=== PATIENT | male | born 1940 | race African-American/Black ===

== ENCOUNTER 2017-01-04 08:41 | Emergency (ER) | payer MEDICARE, BC ==
[2017-01-04] MEDS ORDERED: NORMAL SALINE 500 ML IV ONE (09:00)
[2017-01-04] MEDS ORDERED: FAMOTIDINE INJ/PF 20 MG/2 ML SDV IV ONE (09:13)
[2017-01-04] MEDS ORDERED: ONDANSETRON HCL INJ/PF 4 MG/2 ML SDV IV ONE (09:13)
[2017-01-04 10:08] LABS: ABSOLUTE BASOPHILS # (AUTO) 0.1 10^3/uL (0.0-0.2); ABSOLUTE EOSINOPHILS # (AUTO) 0.3 10^3/uL (0.0-0.6); ABSOLUTE LYMPHOCYTES (AUTO) 0.9 10^3/uL (0.5-4.7); ABSOLUTE MONOCYTES (AUTO) 0.7 10^3/uL (0.1-1.4); BASOPHILS % (AUTO) 0.9 % (0-2); EOSINOPHILS % (AUTO) 4.3 % (0-6); HEMATOCRIT 37.1 % (37.9-51.0); HGB HCT DIFFERENCE -1.1; LYMPHOCYTES % (AUTO) 13.2 % (13-45); MEAN CORPUSCULAR HEMOGLOBIN 29.1 pg (27.0-33.4); MEAN CORPUSCULAR HGB CONC 32.2 g/dL (32.0-36.0); MEAN CORPUSCULAR VOLUME 90 fl (80-97); PROTHROMBIN TIME 14.1 SEC (11.4-15.4); RED BLOOD COUNT 4.11 10^6/uL (4.35-5.55); RED CELL DISTRIBUTION WIDTH 15.7 % (11.5-14.0); SEGMENTED NEUTROPHILS % (AUTO) 71.6 % (42-78)
[2017-01-04 10:09] LABS: PARTIAL THROMBOPLASTIN TIME 34.3 SEC (23.5-35.8)
[2017-01-04 10:26] LABS: ALANINE AMINOTRANSFERASE 33 U/L (21-72); ALBUMIN 3.5 g/dL (3.5-5.0); ALKALINE PHOSPHATASE 148 U/L (38-126); ANION GAP 11 (5-19); ASPARTATE AMINO TRANSFERASE 40 U/L (17-59); BILIRUBIN,DIRECT 0.4 mg/dL (0.0-0.4); BILIRUBIN,TOTAL 0.8 mg/dL (0.2-1.3); BLOOD UREA NITROGEN 40 mg/dL (7-20); CALCIUM 9.2 mg/dL (8.4-10.2); CARBON DIOXIDE 33 mmol/L (22-30); CHLORIDE 99 mmol/L (98-107); CREATININE RESULT 1.24 mg/dL (0.52-1.25); GLUCOSE 167 mg/dL (75-110); LIPASE 274.4 U/L (23-300); POTASSIUM 4.5 mmol/L (3.6-5.0); SODIUM 143.2 mmol/L (137-145); TOTAL PROTEIN 7.2 g/dL (6.3-8.2)
--- NOTE | 2017-01-04 11:05 | RADIOLOGY REPORT (SQ) ---
EXAM DESCRIPTION: ACUTE ABDOMEN SERIES COMPLETED DATE/TIME: 01/04/2017 10:32 am REASON FOR STUDY: n/v epigastric pain COMPARISON: None. NUMBER OF VIEWS: Three views. TECHNIQUE: Frontal chest, supine abdomen and upright/decubitus abdomen radiographic images acquired. LIMITATIONS: None. FINDINGS: CHEST: Lungs clear of infiltrates. FREE AIR: None. No abnormal gas collections. BOWEL GAS PATTERN: Nonobstructive pattern. No dilated loops or air fluid levels. CALCIFICATIONS: No suspicious calcifications. HARDWARE: None in the abdomen. SOFT TISSUES: No gross mass or suggestion of organomegaly. BONES: No acute fracture. No worrisome bone lesions. OTHER: No other significant finding. IMPRESSION: NO RADIOGRAPHIC EVIDENCE FOR ACUTE ABDOMINAL DISEASE. TECHNICAL DOCUMENTATION: JOB ID: [id number] [employer]- All Rights Reserved
[2017-01-04] MEDS ORDERED: MAG HYDROX/AL HYDROX/SIMETH SUSP 30 ML UDCUP PO ONE (11:07)
[2017-01-04] MEDS ORDERED: LIDOCAINE 2% VISCOUS SOLN 20 ML UDCUP PO ONE (11:07)
[2017-01-04] MEDS ORDERED: METOCLOPRAMIDE HCL ORAL SOLN 10 MG/10 ML UDCUP PO ONE (11:07)
--- NOTE | 2017-01-04 12:00 | ER Document Report ---
ED General - General Chief Complaint: Nausea/Vomiting Stated Complaint: NAUSEA Time Seen by Provider: 01/04/17 09:02 TRAVEL OUTSIDE OF THE [place] IN LAST 30 DAYS: No - HPI Patient complains to provider of: Nausea vomiting Notes: Patient coming in for evaluation of nausea and vomiting. Patient states nausea and vomiting with epigastric pain ongoing for approximately 1 week. Patient at this point did throw up possibly a blood clot. Patient denies any dark stools or bloody stools. Patient denies any other significant GI history denies history of hepatitis ABC denies any alcohol abuse. Patient resting calmly upon my evaluation. - Related Data Allergies/Adverse Reactions: Shellfish * Adverse Reaction (Mild, Verified 01/04/17 09:17) GOUT SHELLFOODS Adverse Reaction (Mild, Uncoded 01/04/17 09:17) GOUT Past Medical History - Social History Smoking Status: Never Smoker Chew tobacco use (# tins/day): No Frequency of alcohol use: None Drug Abuse: None Family History: Reviewed & Not Pertinent Patient has suicidal ideation: No Patient has homicidal ideation: No - Past Medical History Cardiac Medical History: Reports: Hx Hypercholesterolemia, Hx Hypertension Pulmonary Medical History: Reports: Hx COPD Endocrine Medical History: Reports: Hx Diabetes Mellitus Type 1, Hx Diabetes Mellitus Type 2 Renal/ Medical History: Denies: Hx Peritoneal Dialysis Musculoskeltal Medical History: Reports Hx Arthritis Psychiatric Medical History: Denies: Hx Depression Past Surgical History: Reports: Hx Orthopedic Surgery Review of Systems - Review of Systems Constitutional: No symptoms reported EENT: No symptoms reported Cardiovascular: No symptoms reported Respiratory: No symptoms reported Gastrointestinal: Nausea, Vomiting Genitourinary: No symptoms reported Male Genitourinary: No symptoms reported Musculoskeletal: No symptoms reported Skin: No symptoms reported Hematologic/Lymphatic: No symptoms reported Neurological/Psychological: No symptoms reported -: Yes All other systems reviewed and negative Physical Exam - Vital signs Vitals: Temp Pulse Resp BP Pulse Ox 98.3 F 86 18 166/77 H 94 01/04/17 08:43 01/04/17 08:43 01/04/17 08:43 01/04/17 08:43 01/04/17 08:43 Interpretation: Normal - General General appearance: Appears well, Alert - HEENT Head: Normocephalic, Atraumatic Eyes: Normal Pupils: PERRL - Respiratory Respiratory status: No respiratory distress Chest status: Nontender Breath sounds: Normal Chest palpation: Normal - Cardiovascular Rhythm: Regular Heart sounds: Normal auscultation Murmur: No - Abdominal Inspection: Normal Bowel sounds: Normal Tenderness: Nontender Organomegaly: No organomegaly - Back Back: Normal, Nontender - Extremities General upper extremity: Normal inspection, Nontender, Normal color, Normal ROM , Normal temperature General lower extremity: Normal inspection, Nontender, Normal color, Normal ROM , Normal temperature, Normal weight bearing. No: Gregg's sign - Neurological Neuro grossly intact: Yes Cognition: Normal Orientation: AAOx4 Pedro Coma Scale Eye Opening: Spontaneous Brunson Coma Scale Verbal: Oriented Pedro Coma Scale Motor: Obeys Commands Pedro Coma Scale Total: 15 Speech: Normal Motor strength normal: LUE, RUE, LLE, RLE Sensory: Normal - Psychological Associated symptoms: Normal affect, Normal mood - Skin Skin Temperature: Warm Skin Moisture: Dry Skin Color: Normal Course - Re-evaluation Re-evalutation: 01/04/17 13:37 Patient lab work did not show any critical etiology. Patient's hemoglobin stable from previous hemoglobin if not better. Patient has not had no nausea or vomiting here in the ER and is able to tolerate p.o. At this time patient looks to be a good candidate for outpatient management. 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 - Vital Signs Vital signs: Temp Pulse Resp BP Pulse Ox 98.3 F 67 19 168/83 H 94 01/04/17 08:43 01/04/17 12:18 01/04/17 12:18 01/04/17 12:18 01/04/17 12:18 - Laboratory Result Diagrams: 01/04/17 09:28 01/04/17 09:28 Laboratory results interpreted by me: 01/04/17 01/04/17 09:28 09:28 RBC 4.11 L Hgb 12.0 L Hct 37.1 L RDW 15.7 H Carbon Dioxide 33 H BUN 40 H Est GFR (Non-Af Amer) 57 L Glucose 167 H Alkaline Phosphatase 148 H Discharge - Discharge Clinical Impression: Nausea & vomiting Qualifiers: Vomiting type: unspecified Vomiting Intractability: unspecified Qualified Code( s): R11.2 - Nausea with vomiting, unspecified Condition: Good Disposition: HOME, SELF-CARE Instructions: Vomiting ([facility]) Additional Instructions: Please take medication as prescribed. Return to the ER if symptoms worsen. Follow-up with your primary care physician Prescriptions: Metoclopramide HCl [Reglan] 5 mg PO Q6 #20 tablet Omeprazole 20 mg PO DAILY #20 capsule.dr Referrals: JESSEE LEAHY MD [Primary Care Provider] - Follow up in 3-5 days
[2017-01-04 12:19] VITALS: BP 168/83
--- NOTE | 2017-01-04 17:03 | EKG REPORT ---
SEVERITY:- ABNORMAL ECG - SINUS RHYTHM MULTIPLE PREMATURE COMPLEXES, SUPRAVEN PROBABLE LEFT ATRIAL ABNORMALITY BORDERLINE T ABNORMALITIES, INFERIOR LEADS : Confirmed by: Leo Vallejo MD 04-Jan-2017 17:02:10
== END 2017-01-04 12:18 | disposition home or self-care (01) ==
LOC: ER 08:41
DX: R11.2 Nausea with vomiting, unspecified (principal); R10.13 Epigastric pain; E78.00 Pure hypercholesterolemia, unspecified; I10 Essential (primary) hypertension; J44.9 Chronic obstructive pulmonary disease, unspecified; E11.9 Type 2 diabetes mellitus without complications; Z91.013 Allergy to seafood
CPT/HCPCS: 93005; 99284; 96361; 96374; 96375; 86900; 86901; 36415; 86850; 83690; 85025; 85610; 85730; 80053; 74022; 93010; J3490; A9270; J2405; J7040; S0028

== ENCOUNTER 2017-01-18 09:23 | Emergency (ER) | payer BC, MEDICARE ==
--- NOTE | 2017-01-18 09:53 | ER Document Report ---
ED Medical Screen (RME) - General Chief Complaint: Abdominal Swelling Stated Complaint: ABDOMINAL PAIN Time Seen by Provider: 01/18/17 09:46 Mode of Arrival: Ambulatory Information source: Patient Notes: This is a 76-year-old male who presents with abdominal distention/swelling along with left-sided abdominal pain. He states that this is been progressing for the past week and his family convinced him to come in for evaluation today. He states last time the symptoms occurred he was told it was secondary to CHF. He denies any chest pain. He denies shortness of breath. No fevers or chills. No nausea or vomiting. I have greeted and performed a rapid initial assessment of this patient. A comprehensive ED assessment and evaluation of the patient, analysis of test results and completion of the medical decision making process will be conducted by additional ED providers. TRAVEL OUTSIDE OF THE [place] IN LAST 30 DAYS: No - Related Data Allergies/Adverse Reactions: Shellfish * Adverse Reaction (Mild, Verified 01/18/17 09:27) GOUT SHELLFOODS Adverse Reaction (Mild, Uncoded 01/18/17 09:27) GOUT Past Medical History - Past Medical History Cardiac Medical History: Reports: Hx Hypercholesterolemia, Hx Hypertension Pulmonary Medical History: Reports: Hx COPD Endocrine Medical History: Reports: Hx Diabetes Mellitus Type 1, Hx Diabetes Mellitus Type 2 Renal/ Medical History: Denies: Hx Peritoneal Dialysis Musculoskeltal Medical History: Reports Hx Arthritis Psychiatric Medical History: Denies: Hx Depression Past Surgical History: Reports: Hx Orthopedic Surgery Physical Exam - Vital signs Vitals: Temp Pulse Resp BP Pulse Ox 97.8 F 74 26 H 152/71 H 93 01/18/17 09:27 01/18/17 09:27 01/18/17 09:27 01/18/17 09:27 01/18/17 09:27 - General General appearance: Appears well In distress: None - Respiratory Respiratory status: No respiratory distress Breath sounds: Other - decreased bibasilar breath sounds with faint crackles - Cardiovascular Rhythm: Regular Heart sounds: Normal auscultation, S1 appreciated, S2 appreciated - Abdominal Distension: Distended Bowel sounds: Hypoactive Tenderness: Other - mild LUQ TTP Course - Vital Signs Vital signs: Temp Pulse Resp BP Pulse Ox 97.8 F 74 26 H 152/71 H 93 01/18/17 09:27 01/18/17 09:27 01/18/17 09:27 01/18/17 09:27 01/18/17 09:27
--- NOTE | 2017-01-18 10:29 | RADIOLOGY REPORT (SQ) ---
EXAM DESCRIPTION: CHEST SINGLE VIEW COMPLETED DATE/TIME: 01/18/2017 10:19 am REASON FOR STUDY: chf COMPARISON: 10/05/2014 NUMBER OF VIEWS: One view. TECHNIQUE: Single frontal radiographic view of the chest acquired. LIMITATIONS: None. FINDINGS: LUNGS AND PLEURA: No opacities, masses or pneumothorax. No pleural effusion. MEDIASTINUM AND HILAR STRUCTURES: No masses. Contour normal. HEART AND VASCULAR STRUCTURES: Heart enlarged without failure. Normal vasculature. BONES: No acute findings. HARDWARE: None in the chest. OTHER: No other significant finding. IMPRESSION: HEART ENLARGED WITHOUT FAILURE. NO OTHER SIGNIFICANT RADIOGRAPHIC FINDING IN THE CHEST. TECHNICAL DOCUMENTATION: JOB ID: [id number] [employer]- All Rights Reserved
[2017-01-18 10:39] LABS: ALANINE AMINOTRANSFERASE 51 U/L (21-72); ALBUMIN 3.1 g/dL (3.5-5.0); ALKALINE PHOSPHATASE 247 U/L (38-126); ANION GAP 11 (5-19); ASPARTATE AMINO TRANSFERASE 60 U/L (17-59); BILIRUBIN,DIRECT 0.3 mg/dL (0.0-0.4); BILIRUBIN,TOTAL 0.4 mg/dL (0.2-1.3); BLOOD UREA NITROGEN 47 mg/dL (7-20); CARBON DIOXIDE 31 mmol/L (22-30); CHLORIDE 99 mmol/L (98-107); CREATINE KINASE 67 U/L (55-170); CREATININE RESULT 1.68 mg/dL (0.52-1.25); GLUCOSE 171 mg/dL (75-110); POTASSIUM 4.8 mmol/L (3.6-5.0); SODIUM 140.5 mmol/L (137-145); TOTAL PROTEIN 6.7 g/dL (6.3-8.2)
[2017-01-18 10:51] LABS: CREATINE KINASE MB 1.07 ng/mL (<4.55)
[2017-01-18 10:53] LABS: TROPONIN I < 0.012 ng/mL
[2017-01-18 11:13] LABS: ABSOLUTE BASOPHILS # (AUTO) 0.1 10^3/uL (0.0-0.2); ABSOLUTE EOSINOPHILS # (AUTO) 0.3 10^3/uL (0.0-0.6); ABSOLUTE LYMPHOCYTES (AUTO) 0.9 10^3/uL (0.5-4.7); ABSOLUTE MONOCYTES (AUTO) 0.8 10^3/uL (0.1-1.4); ABSOLUTE NEUT (AUTO) 5.6 10^3/uL (1.7-8.2); EOSINOPHILS % (AUTO) 4.4 % (0-6); HEMATOCRIT 34.8 % (37.9-51.0); HEMOGLOBIN 10.9 g/dL (13.5-17.0); HGB HCT DIFFERENCE -2.1; LYMPHOCYTES % (AUTO) 11.4 % (13-45); MEAN CORPUSCULAR HEMOGLOBIN 28.5 pg (27.0-33.4); MEAN CORPUSCULAR HGB CONC 31.4 g/dL (32.0-36.0); MEAN CORPUSCULAR VOLUME 91 fl (80-97); MONOCYTES % (AUTO) 10.6 % (3-13); RED BLOOD COUNT 3.83 10^6/uL (4.35-5.55); RED CELL DISTRIBUTION WIDTH 15.8 % (11.5-14.0); SEGMENTED NEUTROPHILS % (AUTO) 72.6 % (42-78); WHITE BLOOD COUNT 7.7 10^3/uL (4.0-10.5)
--- NOTE | 2017-01-18 11:56 | ER Document Report ---
ED General - General Chief Complaint: Abdominal Swelling Stated Complaint: ABDOMINAL PAIN Time Seen by Provider: 01/18/17 09:46 Mode of Arrival: Ambulatory Notes: Patient is here complaining of having "fluid on me" for the past week. He is complaining of left-sided abdominal pain has been present for about a week. He feels swollen in that area and the swelling and pain "comes and goes". He said he has had this before. I am not sure if he is actually had it drained previously or not. At first he says he has had it drained and then he says that he was put in the hospital and given medicines through an IV to treat the condition. Patient says that he has had similar symptoms in the past due to congestive heart failure. He denies any chest pain. Denies any shortness of breath or difficulty breathing. Denies any swelling of his extremities. Denies fever. Patient is on several medications and he thinks he is on a fluid pill, but did not bring his medicines and does not know what medicines he takes. We were able to contact [facility] and determined that the patient is on torsemide 20 mg daily. TRAVEL OUTSIDE OF THE [place] IN LAST 30 DAYS: No - Related Data Allergies/Adverse Reactions: Shellfish * Adverse Reaction (Mild, Verified 01/18/17 09:27) GOUT SHELLFOODS Adverse Reaction (Mild, Uncoded 01/18/17 09:27) GOUT Past Medical History - General Information source: Patient - Social History Smoking Status: Never Smoker Chew tobacco use (# tins/day): No Frequency of alcohol use: None Drug Abuse: None Family History: Reviewed & Not Pertinent Patient has suicidal ideation: No Patient has homicidal ideation: No - Past Medical History Cardiac Medical History: Reports: Hx Congestive Heart Failure, Hx Hypercholesterolemia, Hx Hypertension Pulmonary Medical History: Reports: Hx COPD Endocrine Medical History: Reports: Hx Diabetes Mellitus Type 1, Hx Diabetes Mellitus Type 2 Renal/ Medical History: Reports: Hx Renal Insufficiency GI Medical History: Denies: Hx Cirrhosis Musculoskeltal Medical History: Reports Hx Arthritis Past Surgical History: Reports: Hx Orthopedic Surgery - Left knee and left hip Review of Systems - Review of Systems Notes: REVIEW OF SYSTEMS: CONSTITUTIONAL : Denies fever. EENT: Denies eye, ear, nose or mouth or throat pain or other symptoms. CARDIOVASCULAR: Denies chest pain. RESPIRATORY: Denies cough, chest congestion, or shortness of breath. GASTROINTESTINAL: Denies nausea, vomiting, or diarrhea. GENITOURINARY: Pains of left upper abdominal pain. Denies difficulty or painful urinating, urinary frequency, blood in urine. MUSCULOSKELETAL: Denies back or neck pain. Denies joint pain or swelling. SKIN: Denies rash or skin lesions. NEUROLOGICAL: Denies LOC or altered mental status. Denies headache. Denies sensory loss or motor deficits. ALL OTHER SYSTEMS REVIEWED AND NEGATIVE. Physical Exam - Vital signs Vitals: Temp Pulse Resp BP Pulse Ox 97.8 F 74 26 H 152/71 H 93 01/18/17 09:27 01/18/17 09:27 01/18/17 09:27 01/18/17 09:27 01/18/17 09:27 Interpretation: Normal - Notes Notes: PHYSICAL EXAMINATION: GENERAL: Well-appearing, in no acute distress. Vital signs essentially normal. HEAD: Atraumatic, normocephalic. NECK: Normal range of motion, supple. LUNGS: Breath sounds clear and equal bilaterally. No rales heard. HEART: Regular rate and rhythm without murmurs. ABDOMEN: Appears distended. Looks like patient has ascites to my exam. BACK: No tenderness throughout entire back. EXTREMITIES: Normal range of motion without pain. No edema present of either lower extremity. Negative Homans bilaterally. NEUROLOGICAL: Normal speech, normal gait uses a cane for support.. Normal sensory, motor, and reflex exams. Awake, alert, and oriented x3. Cranial nerves normal. PSYCH: Normal mood, normal affect. SKIN: Warm, dry, no rashes.. No guarding or rebound. Course - Re-evaluation Re-evalutation: 01/18/17 12:05 Labs reviewed. Mild renal insufficiency, but it is somewhat worse than when he was here 2 weeks ago. Liver function tests appear to be normal. I spoke with Dr. Leahy, patient's private doctor who recommended a follow-up visit in his office on Friday morning. Dr. Leahy did question if I had done an ultrasound to verify the ascites and I will do one before discharging the patient. - Vital Signs Vital signs: Temp Pulse Resp BP Pulse Ox 97.8 F 74 26 H 152/71 H 93 01/18/17 09:27 01/18/17 09:27 01/18/17 09:27 01/18/17 09:27 01/18/17 09:27 - Laboratory Result Diagrams: 01/18/17 11:05 01/18/17 10:00 Laboratory results interpreted by me: 01/18/17 01/18/17 10:00 11:05 RBC 3.83 L Hgb 10.9 L Hct 34.8 L MCHC 31.4 L RDW 15.8 H Lymphocytes % 11.4 L Carbon Dioxide 31 H BUN 47 H Creatinine 1.68 H Est GFR ( Amer) 49 L Est GFR (Non-Af Amer) 40 L Glucose 171 H AST 60 H Alkaline Phosphatase 247 H Albumin 3.1 L - Diagnostic Test Radiology reviewed: Image reviewed, Reports reviewed - Ultrasound shows generalized ascites in the patient's abdomen. Radiology results interpreted by me: 01/18/17 12:04 X-ray shows cardiomegaly but no evidence of congestive heart failure. - EKG Interpretation by Me EKG shows normal: Sinus rhythm Rate: Normal Rhythm: NSR Additional EKG results interpreted by me: 01/18/17 12:05 EKG is normal. No acute changes. Discharge - Discharge Clinical Impression: Renal insufficiency Ascites Qualifiers: Ascites type: other type Qualified Code(s): R18.8 - Other ascites Condition: Stable Disposition: HOME, SELF-CARE Additional Instructions: Ascites: Your evaluation today shows that you have ascites. This condition results in fluid accumulation in her abdomen. It can cause pain, shortness of breath, and is usually a reflection of another medical condition. He does not have any evidence of congestive heart failure today. Kidney Function Abnormality Your evaluation has shown an abnormality of your kidney function. An abnormal kidney function test can be caused by dehydration, acute kidney damage , blood vessel disease (such as with diabetes or chronic high blood pressure), or just old age. If the abnormality is caused by an acute disease, it may reverse completely. Have a repeat test. If it's normal, don't worry about your kidneys. If you have a chronic kidney problem, you must be careful with medicines and medical tests. Be sure any doctor who prescribes medicine or orders tests knows that your kidney tests have been abnormal. Some medicines must have the dose reduced, other medicines must be avoided. If the doctor has recommended further workup, be sure to follow up as instructed. Call us if you have new flank pain, vomiting, confusion, or if you' re unable to urinate. Continue to take all of your medications as prescribed. Definitely make sure you take your fluid pill torsemide. Dr. Leahy wants to see you in his office Friday. Call his office first thing Friday and ask them for a time for you to be there. FOLLOW-UP CARE: If you have been referred to a physician for follow-up care, call the physician s office for an appointment as you were instructed or within the next two days. If you experience worsening or a significant change in your symptoms, notify the physician immediately or return to the Emergency Department at any time for re-evaluation. Return at any time if you have new or worsening symptoms. Referrals: JESSEE LEAHY MD [Primary Care Provider] - 01/20/17
--- NOTE | 2017-01-18 12:30 | RADIOLOGY REPORT (SQ) ---
EXAM DESCRIPTION: U/S ABDOMEN LIMITED W/O DOP COMPLETED DATE/TIME: 01/18/2017 12:17 pm REASON FOR STUDY: Distended abdomen,? Ascites COMPARISON: 09/21/2014. TECHNIQUE: Limited Static and real time toscano scale imaging performed of the 4 abdominal quadrants an d the midline. LIMITATIONS: None. FINDINGS: ASCITES: Large volume ascites. OTHER: No other significant finding. IMPRESSION: LARGE VOLUME ASCITES WHICH IS INCREASED COMPARED TO PRIOR STUDY. TECHNICAL DOCUMENTATION: JOB ID: [id number] [employer]- All Rights Reserved
[2017-01-18 12:47] VITALS: BP 164/67
--- NOTE | 2017-01-20 09:42 | EKG REPORT ---
SEVERITY:- NORMAL ECG - SINUS RHYTHM : Confirmed by: Mae Hightower 20-Jan-2017 09:42:22
== END 2017-01-18 12:49 | disposition home or self-care (01) ==
LOC: ER 09:23
DX: R18.8 Other ascites (principal); Z79.899 Other long term (current) drug therapy; N28.9 Disorder of kidney and ureter, unspecified; I51.7 Cardiomegaly; R10.12 Left upper quadrant pain; E11.9 Type 2 diabetes mellitus without complications; I10 Essential (primary) hypertension; J44.9 Chronic obstructive pulmonary disease, unspecified
CPT/HCPCS: 36415; 71010; 76705; 80053; 82550; 82553; 83880; 84484; 85025; 93005; 93010; 99284

== ENCOUNTER 2017-01-19 14:01 | Emergency (ER) | payer BC ==
[2017-01-19 14:25] VITALS: BP 130/68
--- NOTE | 2017-01-19 14:54 | ER Document Report ---
ED Medical Screen (RME) - General Chief Complaint: Abdominal Swelling Stated Complaint: ABDOMINAL SWELLING Time Seen by Provider: 01/19/17 14:49 Mode of Arrival: Wheelchair Information source: Patient Notes: 76-year-old male who was seen in the emergency department yesterday with ascites and renal insufficiency. He returns today because of persistent abdominal swelling which is not any worse than yesterday and he wants the fluid removed. Consulted with Dr. Santizo because Dr. Fernández is eating lunch at this time and Dr. Santizo advised to wait until Dr. Fernández returns from lunch because he saw him yesterday and had a long discussion with his primary care physician Dr. Mon.. TRAVEL OUTSIDE OF THE [place] IN LAST 30 DAYS: No - Related Data Allergies/Adverse Reactions: Shellfish * Adverse Reaction (Mild, Verified 01/19/17 14:22) GOUT SHELLFOODS Adverse Reaction (Mild, Uncoded 01/19/17 14:22) GOUT Past Medical History - Past Medical History Cardiac Medical History: Reports: Hx Congestive Heart Failure, Hx Hypercholesterolemia, Hx Hypertension Pulmonary Medical History: Reports: Hx COPD Endocrine Medical History: Reports: Hx Diabetes Mellitus Type 1, Hx Diabetes Mellitus Type 2 Renal/ Medical History: Reports: Hx Renal Insufficiency. Denies: Hx Peritoneal Dialysis GI Medical History: Denies: Hx Cirrhosis Musculoskeltal Medical History: Reports Hx Arthritis Psychiatric Medical History: Denies: Hx Depression Past Surgical History: Reports: Hx Orthopedic Surgery - Left knee and left hip Physical Exam - Vital signs Vitals: Temp Pulse Resp BP Pulse Ox 98.0 F 68 17 130/68 H 93 01/19/17 14:23 01/19/17 14:23 01/19/17 14:23 01/19/17 14:23 01/19/17 14:23 Course - Vital Signs Vital signs: Temp Pulse Resp BP Pulse Ox 98.0 F 68 17 130/68 H 93 01/19/17 14:23 01/19/17 14:23 01/19/17 14:23 01/19/17 14:23 01/19/17 14:23
--- NOTE | 2017-01-19 15:52 | ER Document Report ---
ED General - General Mode of Arrival: Wheelchair Information source: Patient TRAVEL OUTSIDE OF THE [place] IN LAST 30 DAYS: No - HPI Onset: Other - Refer to HPI note <SHAMEKA NORTON - Last Filed: 01/19/17 21:50> <ESMERFERNANDA HERMINIA - Last Filed: 01/19/17 23:21> - General Chief Complaint: Abdominal Swelling Stated Complaint: ABDOMINAL SWELLING Time Seen by Provider: 01/19/17 14:49 Notes: Patient is a 76 year old male presenting to the emergency department for left sided abdominal pain for 1 week. Patient was evaluated yesterday in the ED for this. Patient has ascites and is wanting to have his fluid removed. Patient is supposed to see his primary Dr. Leahy tomorrow and schedule to have it drained sometime this week. Patient states his family made him come into the ED today. (SHAMEKA NORTON) - Related Data Allergies/Adverse Reactions: Shellfish * Adverse Reaction (Mild, Verified 01/19/17 14:22) GOUT SHELLFOODS Adverse Reaction (Mild, Uncoded 01/19/17 14:22) GOUT Past Medical History - General Information source: Patient - Social History Smoking Status: Unknown if Ever Smoked Chew tobacco use (# tins/day): No Family History: None Patient has suicidal ideation: No Patient has homicidal ideation: No - Past Medical History Cardiac Medical History: Reports: Hx Congestive Heart Failure, Hx Hypercholesterolemia, Hx Hypertension Pulmonary Medical History: Reports: Hx COPD Endocrine Medical History: Reports: Hx Diabetes Mellitus Type 1, Hx Diabetes Mellitus Type 2 Renal/ Medical History: Reports: Hx Renal Insufficiency Musculoskeltal Medical History: Reports Hx Arthritis Past Surgical History: Reports: Hx Orthopedic Surgery - Left knee and left hip <SHAMEKA NORTON - Last Filed: 01/19/17 21:50> Review of Systems - Review of Systems Constitutional: No symptoms reported EENT: No symptoms reported Cardiovascular: No symptoms reported Respiratory: No symptoms reported Gastrointestinal: See HPI Genitourinary: No symptoms reported Male Genitourinary: No symptoms reported Musculoskeletal: No symptoms reported Skin: No symptoms reported Hematologic/Lymphatic: No symptoms reported Neurological/Psychological: No symptoms reported -: Yes All other systems reviewed and negative <SHAMEKA NORTON - Last Filed: 01/19/17 21:50> Physical Exam - Vital signs Interpretation: Normal - General General appearance: Appears well, Alert - HEENT Head: Normocephalic, Atraumatic Eyes: Normal Pupils: PERRL - Respiratory Respiratory status: No respiratory distress Chest status: Nontender Breath sounds: Normal Chest palpation: Normal - Cardiovascular Rhythm: Regular Heart sounds: Normal auscultation Murmur: No - Abdominal Inspection: Normal Distension: Distended, Fluid wave Bowel sounds: Normal Tenderness: Nontender Organomegaly: No organomegaly - Back Back: Normal, Nontender - Extremities General upper extremity: Normal inspection, Nontender, Normal color, Normal ROM , Normal temperature General lower extremity: Normal inspection, Nontender, Normal color, Normal ROM , Normal temperature, Normal weight bearing. No: Gregg's sign - Neurological Neuro grossly intact: Yes Cognition: Normal Orientation: AAOx4 [place] Coma Scale Eye Opening: Spontaneous [place] Coma Scale Verbal: Oriented [place] Coma Scale Motor: Obeys Commands Pedro Coma Scale Total: 15 Speech: Normal Motor strength normal: LUE, RUE, LLE, RLE Sensory: Normal - Psychological Associated symptoms: Normal affect, Normal mood - Skin Skin Temperature: Warm Skin Moisture: Dry Skin Color: Normal <FERNANDA LYMAN - Last Filed: 01/19/17 23:21> - Vital signs Vitals: Temp Pulse Resp BP Pulse Ox 98.0 F 68 17 130/68 H 93 01/19/17 14:23 01/19/17 14:23 01/19/17 14:23 01/19/17 14:23 01/19/17 14:23 Course - Consults Internal music sound light technician Time consulted: 15:52 <SHAMEKA NORTON - Last Filed: 01/19/17 21:50> <FERNANDA LYMAN - Last Filed: 01/19/17 23:21> - Re-evaluation Re-evalutation: 01/19/17 Patient is a 76-year-old male with a history of ascites. He has a history of cirrhosis and CHF. Patient presents for paracentesis. Explained to patient that that cannot be done with radiology today. I have spoken to Andre Boss from interventional radiology and the patient can come tomorrow at noon and have the procedure done around 1:00 tomorrow. Coags have been done. Patient agrees with this plan. He also has a follow-up with his primary care doctor on Friday. Abdomen is soft and the patient is not having any respiratory distress. Understands and agrees with plan. Will have procedure done tomorrow. Stable for discharge. Grateful for care. (FERNANDA LYMAN) - Vital Signs Vital signs: Temp Pulse Resp BP Pulse Ox 98.0 F 68 18 130/68 H 93 01/19/17 14:23 01/19/17 14:23 01/19/17 15:35 01/19/17 14:23 01/19/17 14:23 - Laboratory Laboratory results interpreted by me: 01/19/17 16:30 APTT 36.1 H - Consults Internal music sound light technician Reason for consultation: 01/19/17 15:52 Contacted internal radiology to set up appointment for patient. 01/19/17 16:11 Spoke with Andre Internal data technical lead and made an outpatient/ambulatory appointment for patient tomorrow at noon. (SHAMEKA NORTON) Discharge <SHAMEKA NORTON - Last Filed: 01/19/17 21:50> <FERNANDA LYMAN - Last Filed: 01/19/17 23:21> - Discharge Clinical Impression: Ascites Qualifiers: Ascites type: other type Qualified Code(s): R18.8 - Other ascites Condition: Stable Disposition: HOME, SELF-CARE Instructions: Cirrhosis ([facility]) Additional Instructions: Please go to ambulatory surgery tomorrow at noon. They will do the paracentesis tomorrow. Forms: Follow-Up Radiology Testing Referrals: JESSEE LEAHY MD [Primary Care Provider] - Follow up tomorrow Scribe Attestation: 01/19/17 23:21 I personally performed the services described in the documentation, reviewed and edited the documentation which was dictated to the scribe in my presence, and it accurately records my words and actions. (FERNANDA LYMAN) Scribe Documentation - Scribe Written by George:: George Kruger 01/19/17 21:50 acting as scribe for :: Esmer <SHAMEKA NORTON - Last Filed: 01/19/17 21:50>
[2017-01-19] MEDS ORDERED: ALBUMIN HUMAN 50 ML IV SCH (16:15)
[2017-01-19 17:05] LABS: PROTHROMBIN TIME 13.9 SEC (11.4-15.4)
[2017-01-19 17:06] LABS: PARTIAL THROMBOPLASTIN TIME 36.1 SEC (23.5-35.8)
== END 2017-01-19 16:50 | disposition home or self-care (01) ==
LOC: ER 14:01
DX: R18.8 Other ascites (principal); R10.9 Unspecified abdominal pain
CPT/HCPCS: 36415; 85610; 85730; 99284

== ENCOUNTER 2017-01-20 11:41 | Day surgery (SDC) | payer BC ==
[2017-01-20 12:17] LABS: HEMATOCRIT 32.6 % (37.9-51.0); HEMOGLOBIN 10.2 g/dL (13.5-17.0); MEAN CORPUSCULAR HEMOGLOBIN 28.4 pg (27.0-33.4); MEAN CORPUSCULAR HGB CONC 31.4 g/dL (32.0-36.0); MEAN CORPUSCULAR VOLUME 90 fl (80-97); RED BLOOD COUNT 3.61 10^6/uL (4.35-5.55); WHITE BLOOD COUNT 7.4 10^3/uL (4.0-10.5)
[2017-01-20 12:26] LABS: PARTIAL THROMBOPLASTIN TIME 36.5 SEC (23.5-35.8); PROTHROMBIN TIME 13.9 SEC (11.4-15.4)
[2017-01-20 12:36] LABS: BLOOD UREA NITROGEN 51 mg/dL (7-20); CREATININE RESULT 1.91 mg/dL (0.52-1.25)
[2017-01-20 15:31] LABS: FLUID TYPE PERITONEAL
[2017-01-20 15:32] LABS: FLUID APPEARANCE SLIGHTLY HAZY; FLUID RBC SIDE 1 160; FLUID RBC SIDE 2 158
[2017-01-20 15:33] LABS: FLUID RBC DILUENT USED NONE USED; FLUID RBC DILUTION FACTOR 1; TOTAL RBC SQUARES COUNTED FLD 75
--- NOTE | 2017-01-20 16:20 | RADIOLOGY REPORT (SQ) ---
EXAM DESCRIPTION: U/S ABD PARACENTESIS COMPLETED DATE/TIME: 01/20/2017 2:17 pm REASON FOR STUDY: ASCITES COMPARISON None. LIMITATIONS: None. PROCEDURE: After obtaining informed consent, the patient was brought to the ultrasound suite. The p rocedure was performed with the patient on a gurney. Ultrasound was used to identify a prominent poc ket of ascites in the left lower quadrant. An appropriate access site was selected. The patient was prepped and draped in usual sterile fashion. The access site was anesthetized with 10 mL 1% lidoca ine. A Vcbx-O-Tzgezhfa needle was advanced into the fluid. After aspiration of fluid the needle, th e catheter was advanced off the needle into the fluid. A total of 4,750 mL of yellow fluid was remov ed. The patient tolerated the procedure well left the department in satisfactory condition. IMPRESSION: Successful ultrasound-guided paracentesis. Fluid was sent for laboratory testing. COMMENT: Patient medication list reviewed: Yes- Quality ID# [id number]:Eligible professional attests to doc umenting in the medical record they obtained, updated, or reviewed the patient's current medications. Quality ID #76: The patient was prepped and draped using maximum sterile barrier technique including cap, mask, sterile gown, sterile gloves, a large sterile sheet, hand hygiene, and 2% Chlorhexidine fo r cutaneous antisepsis. When ultrasound is used, sterile ultrasound techniques are followed requiring sterile gel and sterile probes. Quality ID #145: Final reports for procedures using fluoroscopy that document radiation exposure jp sam, or exposure time and number of fluorographic images (if radiation exposure indices are not avail able) TECHNICAL DOCUMENTATION: JOB ID: [id number] [employer]- All Rights Reserved
[2017-01-20 16:39] VITALS: BP 159/78
== END 2017-01-20 15:45 | disposition home or self-care (01) ==
LOC: RAD 11:41
PROVIDERS: ATTEND Emergency Medicine
PROC: 0W9G3ZZ Drainage of Peritoneal Cavity, Percutaneous Approach (ICD-10-PCS; principal; 2017-01-20)
DX: C48.2 Malignant neoplasm of peritoneum, unspecified (principal); I11.0 Hypertensive heart disease with heart failure; I50.9 Heart failure, unspecified; K74.60 Unspecified cirrhosis of liver; J44.9 Chronic obstructive pulmonary disease, unspecified; E10.9 Type 1 diabetes mellitus without complications; M19.90 Unspecified osteoarthritis, unspecified site; E78.00 Pure hypercholesterolemia, unspecified
CPT/HCPCS: 36415; 49083; 82565; 82945; 83615; 84157; 84520; 85027; 85610; 85730; 87070; 87075; 87205; 88305; 88313; 88341; 88342; 89050

== ENCOUNTER → 2017-02-09 | Outpatient (CLI) | payer BC ==
--- NOTE | 2017-02-12 09:07 | RADIOLOGY REPORT (SQ) ---
EXAM DESCRIPTION: PET CT SKULL/THIGH COMPLETED DATE/TIME: 02/12/2017 7:31 am REASON FOR STUDY: MALIGNANT NEOPLASM OF STOMACH, UNSPECIFIED C16.9 MALIGNANT NEOPLASM OF STOMACH, U NSPECIFIED COMPARISON: CT abdomen pelvis 09/20/2014 RADIONUCLIDE AND DOSE: 11.7 mCi F18 FDG The route of agent administration: Intravenous FASTING BLOOD SUGAR: 47 mg/dl CONTRAST TYPE AND DOSE: No CT contrast given. TECHNIQUE: Blood glucose level was verified. Above dose of FDG was injected intravenously. 2-D seg mented attenuation correction images were obtained from the base of the skull to the midthighs. Nonc ontrast CT images were obtained for attenuation correction and fusion with emission images. CT image s were performed without oral or intravenous contrast and are not sensitive for parenchymal lesions. A series of overlapping emission PET images were obtained. Images reviewed and manipulated at [facility] work station by the radiologist. Images stored on PACS. LIMITATIONS: None. FINDINGS: HEAD AND NECK: No areas of abnormal metabolic activity in the soft tissues of the head and neck. CHEST: There is dense consolidation in the left lower lobe worrisome for pneumonia. Left lower lobe segmental airways are occluded by mucus or secretions. Lung parenchymal consolidation SUV 9.7. There is patchy consolidation with lung parenchymal nodules in the lingular apex, which could either be infectious or metastatic, SUV 6.6. This is best shown on axial image 85. Other smaller subcentimeter lung nodules are present along the right minor fissure which may be old p ostinflammatory change rather than metastatic disease. These are too small to characterize with PET- CT. There is a subcentimeter focus of increased activity at the left hilum with SUV 3.2 which could be a reactive lymph node. Diffuse esophageal activity is present, ranging from 3.4 to 5.0 SUV, question diffuse esophagitis. Prevascular enlarged lymph node 1.7 x 1.3 cm in size axial image 59, with SUV 4.5. No pleural effusions. No pericardial effusion. ABDOMEN AND PELVIS: There is moderate ascites. Peritoneal seeding with tumor implants in the right u pper quadrant and left upper quadrant with SUV ranging from 3.7 to 5.4. There is omental tumor in the left upper quadrant with SUV 6.6. Along the gastric antrum, a 4 to 5 cm long ill-defined mass is present with SUV 16.8. PROXIMAL LOWER EXTREMITIES: No areas of abnormal metabolic activity in the soft tissues of the lower extremities. BONES: No abnormal metabolic activity in the visualized skeleton. ADDITIONAL CT FINDINGS: Very dense calcification versus coronary stents along the proximal left coron sukh artery. Left total hip replacement. OTHER: Liver activity 1.8 SUV, vascular blood pool activity SUV 1.3 IMPRESSION: Gastric antrum primary mass SUV 16.8. Malignant ascites with multiple peritoneal, mesenteric, and omental lesions Left lower lobe and lingular pneumonia. TECHNICAL DOCUMENTATION: JOB ID: [id number] [employer]- All Rights Reserved
== END ==
LOC: RAD 19:35
PROVIDERS: ATTEND Internal Medicine
DX: C16.9 Malignant neoplasm of stomach, unspecified (principal)
CPT/HCPCS: 78815; A9552

== ENCOUNTER 2017-02-19 08:52 | Emergency (ER) | payer BC, MEDICARE ==
[2017-02-19] MEDS ORDERED: ONDANSETRON HCL INJ/PF 4 MG/2 ML SDV IV ONE ×2 (09:14→14:00)
--- NOTE | 2017-02-19 09:19 | ER Document Report ---
ED Medical Screen (RME) - General Chief Complaint: Abdominal Pain Stated Complaint: NAUSEA/VOMITING Time Seen by Provider: 02/19/17 09:07 Mode of Arrival: Ambulatory Information source: Patient, Relative, [facility] Records, Outside Facility Records TRAVEL OUTSIDE OF THE [place] IN LAST 30 DAYS: No - HPI Patient complains to provider of: vomiting Onset: Yesterday Quality of pain: No pain Associated Symptoms: Nausea, Vomiting Exacerbated by: Denies Similar symptoms previously: Yes Recently seen / treated by doctor: Yes Notes: 02/19/17 09:15 Patient is a 76-year-old male with history of gastric cancer. Patient was just discharged from [facility] in [place] on Friday after admission for ascites, placement of GJ tube, and port placement. Patient does take clear liquids by mouth otherwise all nutrition is via the J port. Patient has been doing well at home until yesterday when he developed some vomiting. No diarrhea. No fevers. Patient brought in today for evaluation of the vomiting although it has improved since onset yesterday. Patient has not yet begun chemotherapy. - Related Data Allergies/Adverse Reactions: Shellfish * Adverse Reaction (Mild, Verified 02/19/17 08:59) GOUT SHELLFOODS Adverse Reaction (Mild, Uncoded 02/19/17 08:59) GOUT Past Medical History - General Information source: Patient, Relative, [facility] Records - Social History Frequency of alcohol use: None Drug Abuse: None - Past Medical History Cardiac Medical History: Reports: Hx Congestive Heart Failure, Hx Hypercholesterolemia, Hx Hypertension Denies: Hx Coronary Artery Disease, Hx Heart Attack Pulmonary Medical History: Denies: Hx Asthma, Hx Bronchitis, Hx COPD, Hx Pneumonia Neurological Medical History: Denies: Hx Cerebrovascular Accident, Hx Seizures Endocrine Medical History: Reports: Hx Diabetes Mellitus Type 1, Hx Diabetes Mellitus Type 2 Renal/ Medical History: Reports: Hx Renal Insufficiency. Denies: Hx Peritoneal Dialysis Malignancy Medical History: Reports Other - Gastric cancer GI Medical History: Denies: Hx Cirrhosis Musculoskeltal Medical History: Reports Hx Arthritis - Legs and arms Psychiatric Medical History: Denies: Hx Depression Past Surgical History: Reports: Hx Orthopedic Surgery - Left knee and left hip - Immunizations Hx Diphtheria, Pertussis, Tetanus Vaccination: Yes Review of Systems - Review of Systems Gastrointestinal: Vomiting -: Yes All other systems reviewed and negative Physical Exam - Vital signs Vitals: Temp Pulse Resp BP Pulse Ox 98.4 F 81 18 115/57 L 98 02/19/17 09:00 02/19/17 09:00 02/19/17 09:00 02/19/17 09:00 02/19/17 09:00 Interpretation: Normal - General General appearance: Appears well, Alert - HEENT Head: Normocephalic Mucous membranes: Moist Pharynx: Normal Neck: Normal - Respiratory Respiratory status: No respiratory distress Chest status: Nontender Breath sounds: Normal Chest palpation: Normal - Cardiovascular Rhythm: Regular Heart sounds: Normal auscultation Murmur: No Normal capillary refill: Yes - Abdominal Inspection: Other - GJ tube noted in left abdominal wall appears intact, he also has a drain in the left abdominal wall that is intact and covered with a dressing. Postoperative laparoscopic trocar sites are all clean dry and intact as well. Distension: Distended - Mildly Bowel sounds: Normal Tenderness: Nontender - Extremities General upper extremity: Normal inspection, Nontender, Normal color, Normal ROM , Normal temperature - Neurological Neuro grossly intact: Yes Cognition: Normal Orientation: AAOx4 [place] Coma Scale Eye Opening: Spontaneous [place] Coma Scale Verbal: Oriented [place] Coma Scale Motor: Obeys Commands [place] Coma Scale Total: 15 Speech: Normal Motor strength normal: LUE, RUE, LLE, RLE Sensory: Normal - Skin Skin Temperature: Warm Skin Moisture: Dry Skin Color: Normal Course - Re-evaluation Re-evalutation: 02/19/17 11:55 Emergency Department workup is essentially unremarkable. Acute abdominal series was read as negative by the radiologist. Patient is now complaining of shortness of breath. Per family, patient is vomited several more times in the treatment room despite receiving Zofran. Patient will be followed by the emergency physician in the back treatment area as patient will likely require admission for further management. - Vital Signs Vital signs: Temp Pulse Resp BP Pulse Ox 98.4 F 81 14 147/76 H 99 02/19/17 09:00 02/19/17 09:00 02/19/17 11:26 02/19/17 11:26 02/19/17 11:26 - Laboratory Result Diagrams: 02/19/17 09:39 02/19/17 09:39 Laboratory results interpreted by me: 02/19/17 02/19/17 09:39 09:39 RBC 3.66 L Hgb 10.2 L Hct 33.3 L MCHC 30.7 L RDW 16.9 H Lymphocytes % 10.5 L Potassium 5.1 H Chloride 92 L Carbon Dioxide 39 H BUN 38 H Glucose 212 H Alkaline Phosphatase 668 H Albumin 2.8 L
[2017-02-19 10:01] LABS: ABSOLUTE EOSINOPHILS # (AUTO) 0.1 10^3/uL (0.0-0.6); ABSOLUTE MONOCYTES (AUTO) 1.1 10^3/uL (0.1-1.4); ABSOLUTE NEUT (AUTO) 7.4 10^3/uL (1.7-8.2); BASOPHILS % (AUTO) 0.5 % (0-2); EOSINOPHILS % (AUTO) 0.6 % (0-6); HEMATOCRIT 33.3 % (37.9-51.0); HEMOGLOBIN 10.2 g/dL (13.5-17.0); HGB HCT DIFFERENCE -2.7; LYMPHOCYTES % (AUTO) 10.5 % (13-45); MEAN CORPUSCULAR HEMOGLOBIN 27.9 pg (27.0-33.4); MEAN CORPUSCULAR HGB CONC 30.7 g/dL (32.0-36.0); MEAN CORPUSCULAR VOLUME 91 fl (80-97); MONOCYTES % (AUTO) 11.2 % (3-13); RED BLOOD COUNT 3.66 10^6/uL (4.35-5.55); RED CELL DISTRIBUTION WIDTH 16.9 % (11.5-14.0); SEGMENTED NEUTROPHILS % (AUTO) 77.2 % (42-78); WHITE BLOOD COUNT 9.6 10^3/uL (4.0-10.5)
--- NOTE | 2017-02-19 10:22 | RADIOLOGY REPORT (SQ) ---
EXAM DESCRIPTION: ACUTE ABDOMEN SERIES COMPLETED DATE/TIME: 02/19/2017 10:08 am REASON FOR STUDY: abd pain COMPARISON: 01/04/2017 NUMBER OF VIEWS: Three views. TECHNIQUE: Frontal chest, supine abdomen and upright/decubitus abdomen radiographic images acquired. LIMITATIONS: None. FINDINGS: CHEST: There are some minimal basilar densities most consistent with atelectatic changes. There is some minimal blunting of the costophrenic angles which I cannot exclude is tiny pleural eff usions. FREE AIR: None. No abnormal gas collections. BOWEL GAS PATTERN: Nonobstructive pattern. No dilated loops or air fluid levels. CALCIFICATIONS: No suspicious calcifications. HARDWARE: Gastrostomy tube is identified SOFT TISSUES: No gross mass or suggestion of organomegaly. BONES: No acute fracture. No worrisome bone lesions. OTHER: No other significant finding. IMPRESSION: NO RADIOGRAPHIC EVIDENCE FOR ACUTE ABDOMINAL DISEASE. TECHNICAL DOCUMENTATION: JOB ID: [id number] [employer] All Rights Reserved
[2017-02-19 10:25] LABS: ALANINE AMINOTRANSFERASE 35 U/L (21-72); ALBUMIN 2.8 g/dL (3.5-5.0); ALKALINE PHOSPHATASE 668 U/L (38-126); ASPARTATE AMINO TRANSFERASE 52 U/L (17-59); BILIRUBIN,DIRECT 0.4 mg/dL (0.0-0.4); BILIRUBIN,TOTAL 0.6 mg/dL (0.2-1.3); BLOOD UREA NITROGEN 38 mg/dL (7-20); CALCIUM 8.6 mg/dL (8.4-10.2); CHLORIDE 92 mmol/L (98-107); GLUCOSE 212 mg/dL (75-110); POTASSIUM 5.1 mmol/L (3.6-5.0); SODIUM 139.3 mmol/L (137-145); TOTAL PROTEIN 6.8 g/dL (6.3-8.2)
[2017-02-19 10:34] LABS: ANION GAP 8 (5-19)
[2017-02-19 10:35] LABS: CARBON DIOXIDE 39 mmol/L (22-30)
[2017-02-19] MEDS ORDERED: NORMAL SALINE 1000 ML 1,000 ML IV ONE (12:19)
[2017-02-19] MEDS ORDERED: NORMAL SALINE 250 ML IV ONE (12:19)
--- NOTE | 2017-02-19 13:42 | RADIOLOGY REPORT (SQ) ---
EXAM DESCRIPTION: CTA CHEST COMPLETED DATE/TIME: 02/19/2017 1:05 pm REASON FOR STUDY: sob COMPARISON: PET-CT scan dated 02/09/2017 TECHNIQUE: CT scan of the chest performed using helical scanning technique with dynamic intravenous contrast injection. Images reviewed with lung, soft tissue and bone windows. Reconstructed coronal and sagittal MPR images reviewed. Additional 3 dimensional post-processing performed to develop Maximal Intensity Projection images ([place] P). All images stored on PACS. All CT scanners at this facility use dose modulation, iterative reconstruction, and/or weight based d osing when appropriate to reduce radiation dose to as low as reasonably achievable (ALARA). [facility]: Dose Right [facility]: CareDose [facility]: Dose Right [facility]: Teradose 4D [facility]: [employer]Park CONTRAST TYPE AND DOSE: contrast/concentration: Isovue 370.00 mg/ml; Total Contrast Delivered: 76.0 ml; Total Saline Delivered: 100.0 ml RENAL FUNCTION: Creatinine 1.1 RADIATION DOSE: Up-to-date CT equipment and radiation dose reduction techniques were employed. CTDIv ol: 16.5 - 24.2 mGy. DLP: 3125 mGy-cm. . LIMITATIONS: None. FINDINGS: LUNGS AND PLEURA: Tiny bilateral pleural effusions are identified. There is associated ai rspace consolidation in the left lung base which appears improved as compared to the previous study. There is some minimal airspace consolidation in the right lung base which was not present on the pre vious study and is most consistent with atelectatic changes although I cannot exclude a minimal infil trate. Small pulmonary nodules in the right lower lung feel are unchanged as compared to the previou s study. AORTA AND GREAT VESSELS: No aneurysm or dissection. HEART: There is some mild thickening of the pericardium which has the appearance of a small pericardi al effusion PULMONARY ARTERIES: No emboli visualized in the main pulmonary arteries or the segmental branches. HILAR AND MEDIASTINAL STRUCTURES: The previously described mediastinal lymph nodes appears stable. HARDWARE: Port-A-Cath is unchanged in position. UPPER ABDOMEN: See results under abdominal CT scan THYROID AND OTHER SOFT TISSUES: No masses. No adenopathy. BONES: No acute or significant finding. 3D MIPS: Confirm above findings. OTHER: No other significant finding. IMPRESSION: No evidence for pulmonary embolic disease. Tiny bilateral pleural effusions are identif ied with associated airspace consolidation showing interval improvement in the left lung base an inte rval progression in the right lung base as noted above. Tiny pulmonary nodules on the right appears stable. Mild thickening of the pericardium which has the appearance of a small pericardial effusion. Other findings as noted above TECHNICAL DOCUMENTATION: JOB ID: [id number] Quality ID # [id number]: Final reports with documentation of one or more dose reduction techniques (e.g., Au tomated exposure control, adjustment of the mA and/or kV according to patient size, use of iterative reconstruction technique) 2010 [employer]- All Rights Reserved
--- NOTE | 2017-02-19 13:45 | RADIOLOGY REPORT (SQ) ---
EXAM DESCRIPTION: CT ABD/PELVIS WITH IV ONLY COMPLETED DATE/TIME: 02/19/2017 1:05 pm REASON FOR STUDY: abd pain hx of abd ca n/v COMPARISON: None. TECHNIQUE: CT scan of the abdomen and pelvis performed using helical scanning technique with dynamic intravenous contrast injection. No oral contrast. Images reviewed with lung, soft tissue, and bone windows. Reconstructed coronal and sagittal MPR images reviewed. Delayed images for evaluation of the urinary system also acquired. All images stored on PACS. All CT scanners at this facility use dose modulation, iterative reconstruction, and/or weight based d osing when appropriate to reduce radiation dose to as low as reasonably achievable (ALARA). [facility]: Dose Right [facility]: CareDose [facility]: Dose Right [facility]: Teradose 4D [facility]: [employer] CONTRAST TYPE AND DOSE: Not available at time dictation. Isovue 370 RENAL FUNCTION: BUN 38, creatinine 1.10 RADIATION DOSE: . LIMITATIONS: None. FINDINGS: LOWER CHEST: There are bilateral pleural effusions and basilar atelectasis or pneumonia. LIVER: Normal size. No masses. No dilated ducts. SPLEEN: There is a focal thick walled enhancing lesion in the spleen. This measures 4 cm in greatest diameter. This could represent abscess. Necrotic neoplastic process cannot be excluded. PANCREAS: No masses. No significant calcifications. No adjacent inflammation or peripancreatic fluid collections. Pancreatic duct not dilated. GALLBLADDER: No identified stones by CT criteria. No inflammatory changes to suggest cholecystitis. ADRENAL GLANDS: There is a 2.2 x 1.5 cm left adrenal lesion. Hounsfield units measure 55. RIGHT KIDNEY AND URETER: No solid masses. No significant calcifications. No hydronephrosis or hyd roureter. LEFT KIDNEY AND URETER: No solid masses. No significant calcifications. No hydronephrosis or hydr oureter. AORTA AND VESSELS: No aneurysm. No dissection. Renal arteries, SMA, celiac without stenosis. RETROPERITONEUM: No retroperitoneal adenopathy, hemorrhage or masses. BOWEL AND PERITONEAL CAVITY: There is ascites. A GJ tube is in place. There is a 2nd catheter noted in the left lower quadrant. There is thickening of the gastric antrum. The patient has a known gas tric antral tumor. There is some focal areas of mesenteric studding consistent with metastatic disea se. APPENDIX: Not visualized. PELVIS: There is free fluid in the pelvis. ABDOMINAL WALL: There is an umbilical hernia containing omental fat and fluid. BONES: No significant or acute findings. OTHER: No other significant finding. IMPRESSION: 1. Bibasilar atelectasis or pneumonia and pleural effusions. 2. Ascites with peritoneal implants consistent with metastatic disease. 3. Thickening of the gastric antrum consistent with known gastric cancer. TECHNICAL DOCUMENTATION: JOB ID: [id number] Quality ID # [id number]: Final reports with documentation of one or more dose reduction techniques (e.g., Au tomated exposure control, adjustment of the mA and/or kV according to patient size, use of iterative reconstruction technique) 2010 [employer]- All Rights Reserved
[2017-02-19] MEDS ORDERED: ONDANSETRON ODT 4 MG TAB (6 TAB/DSPK) PO PRN (13:59)
--- NOTE | 2017-02-19 14:06 | ER Document Report ---
ED General - General Chief Complaint: Abdominal Pain Stated Complaint: NAUSEA/VOMITING Time Seen by Provider: 02/19/17 09:07 Mode of Arrival: Ambulatory TRAVEL OUTSIDE OF THE [place] IN LAST 30 DAYS: No - HPI Patient complains to provider of: Nausea vomiting Notes: Patient coming in for evaluation nausea vomiting. 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 Upon my evaluation patient states feeling better now since having Zofran as reported by nursing staff the patient did have some mild shortness of breath however patient was never hypoxic patient does wear home O2 chronically. Otherwise patient has no complaints - Related Data Allergies/Adverse Reactions: Shellfish * Adverse Reaction (Mild, Verified 02/19/17 08:59) GOUT SHELLFOODS Adverse Reaction (Mild, Uncoded 02/19/17 08:59) GOUT Past Medical History - General Information source: Patient, Relative, [facility] Records - Social History Smoking Status: Former Smoker Frequency of alcohol use: None Drug Abuse: None Family History: None Patient has suicidal ideation: No Patient has homicidal ideation: No - Past Medical History Cardiac Medical History: Reports: Hx Congestive Heart Failure, Hx Hypercholesterolemia, Hx Hypertension Denies: Hx Coronary Artery Disease, Hx Heart Attack Pulmonary Medical History: Denies: Hx Asthma, Hx Bronchitis, Hx COPD, Hx Pneumonia Neurological Medical History: Denies: Hx Cerebrovascular Accident, Hx Seizures Endocrine Medical History: Reports: Hx Diabetes Mellitus Type 1, Hx Diabetes Mellitus Type 2 Renal/ Medical History: Reports: Hx Renal Insufficiency. Denies: Hx Peritoneal Dialysis Malignancy Medical History: Reports Other - Gastric cancer GI Medical History: Denies: Hx Cirrhosis Musculoskeltal Medical History: Reports Hx Arthritis - Legs and arms Psychiatric Medical History: Denies: Hx Depression Past Surgical History: Reports: Hx Orthopedic Surgery - Left knee and left hip - Immunizations Hx Diphtheria, Pertussis, Tetanus Vaccination: Yes Review of Systems - Review of Systems Constitutional: No symptoms reported EENT: No symptoms reported Cardiovascular: No symptoms reported Respiratory: No symptoms reported Gastrointestinal: Nausea, Vomiting Genitourinary: No symptoms reported Male Genitourinary: No symptoms reported Musculoskeletal: No symptoms reported Skin: No symptoms reported Hematologic/Lymphatic: No symptoms reported Neurological/Psychological: No symptoms reported -: Yes All other systems reviewed and negative Physical Exam - Vital signs Vitals: Temp Pulse Resp BP Pulse Ox 98.4 F 81 18 115/57 L 98 02/19/17 09:00 02/19/17 09:00 02/19/17 09:00 02/19/17 09:00 02/19/17 09:00 Interpretation: Normal - General General appearance: Appears well, Alert - HEENT Head: Normocephalic, Atraumatic Eyes: Normal Pupils: PERRL - Respiratory Respiratory status: No respiratory distress Chest status: Nontender Breath sounds: Normal Chest palpation: Normal - Cardiovascular Rhythm: Regular Heart sounds: Normal auscultation Murmur: No - Abdominal Inspection: Normal Distension: No distension Bowel sounds: Normal Tenderness: Nontender Organomegaly: No organomegaly Notes: Feeding tube in place no signs of infection patient also has a Pleurx drainage to for chronic drainage of his ascitic fluid. - Back Back: Normal, Nontender - Extremities General upper extremity: Normal inspection, Nontender, Normal color, Normal ROM , Normal temperature General lower extremity: Normal inspection, Nontender, Normal color, Normal ROM , Normal temperature, Normal weight bearing. No: Gregg's sign - Neurological Neuro grossly intact: Yes Cognition: Normal Orientation: AAOx4 [place] Coma Scale Eye Opening: Spontaneous Pedro Coma Scale Verbal: Oriented [place] Coma Scale Motor: Obeys Commands Pedro Coma Scale Total: 15 Speech: Normal Motor strength normal: LUE, RUE, LLE, RLE Sensory: Normal - Psychological Associated symptoms: Normal affect, Normal mood - Skin Skin Temperature: Warm Skin Moisture: Dry Skin Color: Normal Course - Re-evaluation Re-evalutation: 02/19/17 15:01 Discussed with the patient's oncologist agreed that the patient can tolerate p.o. try to discharge the patient home. Patient's CTA and CAT scans are negative for any signs of obstruction or PE. Findings the lungs more consistent with pleural fluid. Family agrees patient feeling better no more vomiting since Zofran patient will be discharged home with oral Zofran and Phenergan suppositories. Patient will be discharged to follow-up with Dr. joyner - Vital Signs Vital signs: Temp Pulse Resp BP Pulse Ox 98.4 F 81 12 160/71 H 100 02/19/17 09:00 02/19/17 09:00 02/19/17 12:00 02/19/17 12:00 02/19/17 12:01 - Laboratory Result Diagrams: 02/19/17 09:39 02/19/17 09:39 Laboratory results interpreted by me: 02/19/17 02/19/17 09:39 09:39 RBC 3.66 L Hgb 10.2 L Hct 33.3 L MCHC 30.7 L RDW 16.9 H Lymphocytes % 10.5 L Potassium 5.1 H Chloride 92 L Carbon Dioxide 39 H BUN 38 H Glucose 212 H Alkaline Phosphatase 668 H Albumin 2.8 L Discharge - Discharge Clinical Impression: GI malignancy Nausea & vomiting Qualifiers: Vomiting type: unspecified Vomiting Intractability: unspecified Qualified Code( s): R11.2 - Nausea with vomiting, unspecified Constipation Qualifiers: Constipation type: unspecified constipation type Qualified Code(s): K59.00 - Constipation, unspecified Condition: Good Disposition: HOME, SELF-CARE Additional Instructions: At this time CAT scan of the chest and abdomen did not reveal any significant pathology. I highly recommend to follow-up with your cancer specialist as scheduled. If you believe the patient may be having some slight dehydration you can always call your cancer specialists clinic for possible IV fluids. We will give you a prescription for Zofran and Phenergan suppositories. The Zofran will dissolve underneath his tongue or any small amount of water that she may place in his mouth or his feeding tube. Prescriptions: Promethazine HCl [Phenergan 25 mg Supp.rect] 25 mg [place] Q4HP PRN #12 supp.rect PRN Reason: Ondansetron [Zofran Odt 4 mg Tablet] 1 - 2 tab PO Q4H PRN #30 tab.rapdis PRN Reason: For Nausea/Vomiting Referrals: JESSEE LEAHY MD [Primary Care Provider] - Follow up as needed
[2017-02-19 14:12] VITALS: BP 161/72
== END 2017-02-19 14:45 | disposition home or self-care (01) ==
LOC: ER 08:52
DX: R11.2 Nausea with vomiting, unspecified (principal); C16.3 Malignant neoplasm of pyloric antrum; K59.00 Constipation, unspecified; R06.02 Shortness of breath; I10 Essential (primary) hypertension; E11.9 Type 2 diabetes mellitus without complications; R18.8 Other ascites; Z97.8 Presence of other specified devices; Z93.1 Gastrostomy status; Z99.81 Dependence on supplemental oxygen
CPT/HCPCS: 96376; 99284; 96374; 36415; 83690; 85025; 80053; 74022; 71275; 74177; J2405; J7050; 96361

== ENCOUNTER 2017-02-21 10:13 | Inpatient (IN) | payer MEDICARE, BC ==
--- NOTE | 2017-02-21 10:53 | RADIOLOGY REPORT (SQ) ---
EXAM DESCRIPTION: KUB/ABDOMEN (SINGLE VIEW) COMPLETED DATE/TIME: 02/21/2017 10:43 am REASON FOR STUDY: g tube, vomiting, recent constipation COMPARISON: None. NUMBER OF VIEWS: One view. TECHNIQUE: Supine radiographic image of the abdomen acquired. LIMITATIONS: None. FINDINGS: BOWEL GAS PATTERN: Nonobstructive bowel gas pattern. There does not appear to be a large amount of stool present. CALCIFICATIONS: No suspicious calcifications. SOFT TISSUES: No gross mass or suggestion of organomegaly. HARDWARE: Gastrostomy tube. Catheters overlie the abdomen. Left hip arthroplasty. BONES: Lumbar degenerative changes and spondylosis are present. OTHER: No other significant finding. IMPRESSION: Nonspecific abdomen. TECHNICAL DOCUMENTATION: JOB ID: [id number] [employer]- All Rights Reserved
[2017-02-21 11:38] LABS: ABSOLUTE BASOPHILS # (AUTO) 0.1 10^3/uL (0.0-0.2); ABSOLUTE LYMPHOCYTES (AUTO) 1.1 10^3/uL (0.5-4.7); ABSOLUTE MONOCYTES (AUTO) 1.4 10^3/uL (0.1-1.4); ABSOLUTE NEUT (AUTO) 9.6 10^3/uL (1.7-8.2); BASOPHILS % (AUTO) 0.6 % (0-2); EOSINOPHILS % (AUTO) 0.4 % (0-6); HEMATOCRIT 31.9 % (37.9-51.0); HEMOGLOBIN 9.5 g/dL (13.5-17.0); HGB HCT DIFFERENCE -3.4; LYMPHOCYTES % (AUTO) 8.7 % (13-45); MEAN CORPUSCULAR HEMOGLOBIN 26.8 pg (27.0-33.4); MEAN CORPUSCULAR HGB CONC 29.8 g/dL (32.0-36.0); MEAN CORPUSCULAR VOLUME 90 fl (80-97); MONOCYTES % (AUTO) 11.1 % (3-13); RED BLOOD COUNT 3.53 10^6/uL (4.35-5.55); RED CELL DISTRIBUTION WIDTH 17.1 % (11.5-14.0); SEGMENTED NEUTROPHILS % (AUTO) 79.2 % (42-78); WHITE BLOOD COUNT 12.1 10^3/uL (4.0-10.5)
[2017-02-21 11:51] LABS: ALANINE AMINOTRANSFERASE 48 U/L (21-72); ALBUMIN 3.2 g/dL (3.5-5.0); ALKALINE PHOSPHATASE 769 U/L (38-126); ASPARTATE AMINO TRANSFERASE 68 U/L (17-59); BILIRUBIN,DIRECT 0.4 mg/dL (0.0-0.4); BILIRUBIN,TOTAL 0.5 mg/dL (0.2-1.3); BLOOD UREA NITROGEN 56 mg/dL (7-20); CALCIUM 8.7 mg/dL (8.4-10.2); CHLORIDE 87 mmol/L (98-107); CREATINE KINASE 23 U/L (55-170); CREATININE RESULT 2.11 mg/dL (0.52-1.25); GLUCOSE 265 mg/dL (75-110); POTASSIUM 5.4 mmol/L (3.6-5.0); SODIUM 144.4 mmol/L (137-145); TOTAL PROTEIN 7.6 g/dL (6.3-8.2)
[2017-02-21 12:00] LABS: ANION GAP 8 (5-19)
[2017-02-21 12:02] LABS: CARBON DIOXIDE 49 mmol/L (22-30)
[2017-02-21 12:03] LABS: CREATINE KINASE MB 0.32 ng/mL (<4.55)
[2017-02-21 12:04] LABS: TROPONIN I < 0.012 ng/mL
[2017-02-21] MEDS ORDERED: RINGERS SOLUTION 1,000 ML IV PRN (12:26)
[2017-02-21] MEDS ORDERED: ONDANSETRON HCL INJ/PF 4 MG/2 ML SDV IV ONE (12:26)
[2017-02-21] MEDS ORDERED: NORMAL SALINE 1000 ML 1,000 ML IV PRN (12:28)
--- NOTE | 2017-02-21 12:49 | ER Document Report ---
ED GI/ - General Chief Complaint: Nausea/Vomiting Stated Complaint: NAUSEA Time Seen by Provider: 02/21/17 10:21 Mode of Arrival: Ambulatory Information source: Patient, Relative Notes: Patient is a 76-year-old male with a history of gastric cancer who just had a gastric tube placed 1 week ago who presents to the ER today for vomiting 3 days. Patient was seen here in the emergency department 2 days ago for the same symptoms. He states that the outpatient nausea medication is not working for him. He started vomiting at 7 AM this morning. Daughter states that he is also having some bleeding from his nose, he does wear oxygen at home. She states the bleeding stopped within a few minutes without even having to hold pressure. he denies diarrhea, fevers or chills. He admits to chest pain after vomiting this morning, feeling like a "burning" he does have a history of acid reflux. TRAVEL OUTSIDE OF THE [place] IN LAST 30 DAYS: No - Related Data Allergies/Adverse Reactions: Shellfish * Adverse Reaction (Mild, Verified 02/19/17 08:59) GOUT SHELLFOODS Adverse Reaction (Mild, Uncoded 02/19/17 08:59) GOUT Past Medical History - General Information source: Patient, Relative - Social History Smoking Status: Never Smoker Chew tobacco use (# tins/day): No Frequency of alcohol use: None Drug Abuse: None Family History: None - Past Medical History Cardiac Medical History: Reports: Hx Congestive Heart Failure, Hx Hypercholesterolemia, Hx Hypertension Denies: Hx Coronary Artery Disease, Hx Heart Attack Pulmonary Medical History: Denies: Hx Asthma, Hx Bronchitis, Hx COPD, Hx Pneumonia Neurological Medical History: Denies: Hx Cerebrovascular Accident, Hx Seizures Endocrine Medical History: Reports: Hx Diabetes Mellitus Type 1, Hx Diabetes Mellitus Type 2 Renal/ Medical History: Reports: Hx Renal Insufficiency. Denies: Hx Peritoneal Dialysis GI Medical History: Denies: Hx Cirrhosis Musculoskeltal Medical History: Reports Hx Arthritis - Legs and arms Psychiatric Medical History: Denies: Hx Depression Past Surgical History: Reports: Hx Orthopedic Surgery - Left knee and left hip - Immunizations Hx Diphtheria, Pertussis, Tetanus Vaccination: Yes Review of Systems - Review of Systems Constitutional: No symptoms reported EENT: No symptoms reported Cardiovascular: No symptoms reported Respiratory: No symptoms reported Gastrointestinal: See HPI Genitourinary: No symptoms reported Male Genitourinary: No symptoms reported Musculoskeletal: No symptoms reported Skin: No symptoms reported Hematologic/Lymphatic: No symptoms reported Neurological/Psychological: No symptoms reported Physical Exam - Vital signs Vitals: Resp 18 02/21/17 10:20 - Notes Notes: PHYSICAL EXAMINATION: GENERAL: chronically ill appearing, but in no acute distress. HEAD: Atraumatic, normocephalic. EYES: Pupils equal round and reactive to light, extraocular movements intact, sclera anicteric, conjunctiva are normal. NECK: Normal range of motion, supple without lymphadenopathy LUNGS: CTAB and equal. No wheezes rales or rhonchi. HEART: Regular rate and rhythm without murmurs ABDOMEN: Soft, gastric tube in place, no tenderness. No guarding, no rebound BACK: no vertebral tenderness, normal ROM GI/: no CVA tenderness EXTREMITIES: Normal range of motion, no pitting edema. No cyanosis. NEUROLOGICAL: Cranial nerves grossly intact. Normal sensory/motor exams. PSYCH: Normal mood, normal affect. SKIN: Warm, Dry, normal turgor, incisions over left chest, hypogastric and right lower and upper quadrants covered with ster strips, no drainage or erythema Course - Re-evaluation Re-evalutation: 02/21/17 12:47 Dr. Deras, oncologist states that he thinks pt should come in for IV fluids in intractable vomiting. He states he's around this weekend and will check on pt on hospital. Dr. Mon agrees to admit at this time for observation. 02/21/17 13:01 - Vital Signs Vital signs: Temp Pulse Resp BP Pulse Ox 98.5 F 73 24 H 149/65 H 90 L 02/21/17 10:34 02/21/17 10:34 02/21/17 10:34 02/21/17 10:34 02/21/17 10:34 - Laboratory Result Diagrams: 02/21/17 11:10 02/21/17 11:10 Laboratory results interpreted by me: 02/21/17 02/21/17 11:10 11:10 WBC 12.1 H RBC 3.53 L Hgb 9.5 L Hct 31.9 L MCH 26.8 L MCHC 29.8 L RDW 17.1 H Seg Neutrophils % 79.2 H Lymphocytes % 8.7 L Absolute Neutrophils 9.6 H Potassium 5.4 H Chloride 87 L Carbon Dioxide 49 H* BUN 56 H Creatinine 2.11 H Est GFR ( Amer) 37 L Est GFR (Non-Af Amer) 31 L Glucose 265 H AST 68 H Alkaline Phosphatase 769 H Creatine Kinase 23 L Albumin 3.2 L Discharge - Discharge Clinical Impression: Gastric cancer Qualifiers: Malignant neoplasm of stomach location: unspecified location Qualified Code(s) : C16.9 - Malignant neoplasm of stomach, unspecified Intractable vomiting with nausea Qualifiers: Vomiting type: unspecified Qualified Code(s): R11.2 - Nausea with vomiting, unspecified Condition: Stable Disposition: ADMITTED OBSERVATION Admitting Provider: Elieser Unit Admitted: Telemetry
[2017-02-21] MEDS ORDERED: METOCLOPRAMIDE HCL INJ/PF 10 MG/2 ML SDV IV ONE (14:40)
[2017-02-21] MEDS ORDERED: MORPHINE SULFATE 10 MG/ML INJ IV ONE (14:45)
[2017-02-21] MEDS ORDERED: ACETAMINOPHEN 325 MG TABLET PO PRN (15:41)
[2017-02-21] MEDS ORDERED: OXYCODONE-ACETAMINOPHEN 5-325 MG TABLET PO PRN (15:41)
[2017-02-21] MEDS ORDERED: ZOLPIDEM TARTRATE 5 MG TABLET PO PRN (15:41)
[2017-02-21] MEDS ORDERED: PROMETHAZINE HCL 25 MG SUPP.RECT PR PRN (15:50)
--- NOTE | 2017-02-21 16:23 | PDOC H&P ---
History of Present Illness Admission Date/PCP: 02/21/17 13:27 JESSEE DUKESSALEEM Patient complains of: Nausea and vomiting for the past 3 days not responding to PO meds. History of Present Illness: AJSMIN ELLSWORTH is a 76 year old male with hx of DM2/hTN/HYperlipidemia/ CHF/ DELVIS on CPAP/DM nephropathy/GERD/Constipation/BPH/Gout/Morbid obesity/Vitamin D def, who was recently diagnosed with adenocarcinoma of stomach, pancreas and small bowel.He had PEG tube placement 1 week ago and is being prepared for chemotherapy.He started having nausea/vomiting about 3 days ago and was seen at ER 2 days ago and according to patient, the oral medications is not helping with the vomiting and it is getting worse, hence he came back to ER for evaluation and mgt. His BUN/Cr has increased form 38/1.1 on 02/19/2017 to 56/ 2.1 today and her bicarbonate has increased from 38 on 02/19/2017 to 49 today. Past Medical History Cardiac Medical History: Reports: Congestive Heart Failure, Hyperlipidema, Hypertension Denies: Coronary Artery Disease, Myocardial Infarction Pulmonary Medical History: Denies: Asthma, Bronchitis, Chronic Obstructive Pulmonary Disease (COPD), Pneumonia Neurological Medical History: Denies: Seizures Endocrine Medical History: Reports: Diabetes Mellitus Type 1, Diabetes Mellitus Type 2 GI Medical History: Denies: Cirrhosis Musculoskeltal Medical History: Reports: Arthritis - Legs and arms Psychiatric Medical History: Denies: Depression Hematology: Denies: Anemia Past Surgical History Past Surgical History: Reports: Orthopedic Surgery - Left knee and left hip Social History Smoking Status: Never Smoker Frequency of Alcohol Use: Occasional Hx Recreational Drug Use: No Hx Prescription Drug Abuse: No Family History Family History: None Parental Family History Reviewed: Yes Children Family History Reviewed: Yes Sibling(s) Family History Reviewed.: Yes Medication/Allergy Home Medications: Allopurinol [Zyloprim 100 mg Tablet] 100 mg PO DAILY 02/21/17 Aspirin [Aspirin 81 mg Chewable Tablet] 81 mg PO DAILY 02/21/17 Atorvastatin Calcium [Lipitor 40 mg Tablet] 40 mg PO QHS 02/21/17 Carvedilol [Coreg 25 mg Tablet] 25 mg PO Q12 02/21/17 Fentanyl [Duragesic 12 Mcg/Hr Transdermal Patch] 12 mcg TOP Q3D@1000 02/21/17 Finasteride [Proscar 5 mg Tablet] 5 mg PO DAILY 02/21/17 Hydralazine HCl [Apresoline 50 mg Tablet] 50 mg PO Q12 02/21/17 Insulin Detemir [Levemir Flextouch] 40 units SQ QHS 02/21/17 Insulin Glargine,Hum.rec.anlog [Lantus Solostar] 40 units SQ QAM 02/21/17 Isosorbide Mononitrate [Isosorbide Mononitrate ER] 30 mg PO DAILY 02/21/17 Losartan Potassium [Cozaar 25 mg Tablet] 25 mg PO DAILY 02/21/17 Metoclopramide HCl [Reglan] 5 mg PO Q6HP PRN 02/21/17 Omeprazole 20 mg PO DAILY 02/21/17 Ondansetron [Zofran Odt 4 mg Tablet] 4 mg PO Q4HP PRN 02/21/17 Oxycodone HCl 5 mg PO Q4HP PRN 02/21/17 Oxycodone HCl/Acetaminophen [Percocet 5-325 mg Tablet] 1 tab PO Q12 02/21/17 Promethazine HCl [Phenergan 25 mg Supp.rect] 1 supp [place] Q4HP PRN 02/21/17 Terazosin HCl [Hytrin] 5 mg PO DAILY 02/21/17 Torsemide [Demadex 20 mg Tablet] 20 mg PO DAILY 02/21/17 Allergies/Adverse Reactions: Shellfish * Adverse Reaction (Mild, Verified 02/19/17 08:59) GOUT SHELLFOODS Adverse Reaction (Mild, Uncoded 02/19/17 08:59) GOUT Review of Systems All systems: as per PMH Constitutional: PRESENT: anorexia Eyes: PRESENT: as per HPI Ears: PRESENT: as per HPI Nose, Mouth, and Throat: PRESENT: as per HPI Cardiovascular: PRESENT: as per HPI Respiratory: PRESENT: as per HPI Gastrointestinal: PRESENT: nausea, vomiting Genitourinary: PRESENT: as per HPI Musculoskeletal: PRESENT: as per HPI Integumentary: PRESENT: as per HPI Neurological: PRESENT: as per HPI Psychiatric: PRESENT: as per HPI Endocrine: PRESENT: as per HPI Hematologic/Lymphatic: PRESENT: as per HPI Allergic/Immunologic: PRESENT: as per HPI Physical Exam Vital Signs: Temp Pulse Resp BP Pulse Ox 98.5 F 73 15 116/58 L 98 02/21/17 10:34 02/21/17 10:34 02/21/17 14:01 02/21/17 14:01 02/21/17 14:07 General appearance: PRESENT: cooperative, mild distress, morbidly obese, well- developed, well-nourished Eye exam: PRESENT: EOMI, PERRLA Ear exam: PRESENT: TM's normal bilaterally Mouth exam: PRESENT: neck supple, tongue midline Neck exam: PRESENT: full ROM Respiratory exam: PRESENT: clear to auscultation chris, symmetrical Cardiovascular exam: PRESENT: +S1, +S2 Pulses: PRESENT: +2 pedal pulses bilateral GI/Abdominal exam: PRESENT: normal bowel sounds, soft Rectal exam: PRESENT: deferred Extremities exam: PRESENT: full ROM Musculoskeletal exam: PRESENT: full ROM Neurological exam: PRESENT: alert, awake, oriented to person, oriented to place , oriented to time Psychiatric exam: PRESENT: anxious Results Impressions: KUB X-Ray 02/21/17 10:22 IMPRESSION: Nonspecific abdomen. Assessment & Plan - Diagnosis (1) Intractable vomiting with nausea Qualifiers: Vomiting type: unspecified Qualified Code(s): R11.2 - Nausea with vomiting, unspecified Is this a current diagnosis for this admission?: YesPlan: Ct with IVF fluids normal saline at 125 cc/hr; Zofran 4 mg q4h iV prn.Monitor chemistries daily. (2) Acute kidney injury Is this a current diagnosis for this admission?: YesPlan: Ct with IV fluids normal saline at 125 cc/hr cautiously due to hx of CHF; Avoid nephrotoxics; daily weight; strict input/out put chart; monitor chemistries daily. (3) Diabetes mellitus Qualifiers: Diabetes mellitus type: type 2 Is this a current diagnosis for this admission?: YesPlan: Ct with Lantus 40 iu qhs subcut; Accucheck qac, qhs with slidding with humalog insulin as per [facility] protocol.1800 calorie ADA diet. F/u HBA1C. (4) Hypertension Qualifiers: Hypertension type: essential hypertension Qualified Code(s): I10 - Essential (primary) hypertension Is this a current diagnosis for this admission?: YesPlan: Ct with Coreg 25 mg BID PO; Hydralazine 50 mg BID po; Losartan 25 mg qd po; ISMO 30 mg qd po; 2 g sodium diet. (5) Hyperlipidemia Qualifiers: Hyperlipidemia type: mixed hyperlipidemia Qualified Code(s): E78.2 - Mixed hyperlipidemia Is this a current diagnosis for this admission?: YesPlan: Ct with 200 mg cholesterol diet. (6) Congestive heart failure Qualifiers: Congestive heart failure type: diastolic Congestive heart failure chronicity: chronic Qualified Code(s): I50.32 - Chronic diastolic ( congestive) heart failure Is this a current diagnosis for this admission?: YesPlan: Hold Torsemide due to dehydration and acute kidney injury; Monitor chemistries daily; strict in put/out put chart. (7) Gastric cancer Qualifiers: Malignant neoplasm of stomach location: unspecified location Qualified Code(s): C16.9 - Malignant neoplasm of stomach, unspecified Is this a current diagnosis for this admission?: YesPlan: Ct with Fentanyl patch 25 mcg/hr q72h; Percocet 5/325 1 q6h prn po; f/u oncologist, Dr Deras. (8) Reflux esophagitis Is this a current diagnosis for this admission?: YesPlan: CT with Prevacid 30 mg qd po since we do not have Omeprazole in our formulary. (9) Constipation Qualifiers: Constipation type: unspecified constipation type Qualified Code(s): K59.00 - Constipation, unspecified Is this a current diagnosis for this admission?: YesPlan: Ct with Colace 100 mg qd po. (10) Osteoarthritis Qualifiers: Osteoarthritis location: knee Laterality: bilateral Is this a current diagnosis for this admission?: YesPlan: CT with Percocet 5/325 1 q6h prn po. (11) Gout Is this a current diagnosis for this admission?: YesPlan: Ct with Allopurinol 100 mg qd po (12) Sleep apnea, obstructive Is this a current diagnosis for this admission?: YesPlan: Ct with CPAP at night (13) BPH (benign prostatic hyperplasia) Is this a current diagnosis for this admission?: YesPlan: Ct with Terazosin 5 mg qd po (14) DVT prophylaxis Is this a current diagnosis for this admission?: YesPlan: Ct with Heparin 5000 iu q8h subcut; SCD.
[2017-02-21] MEDS: INSULIN LISPRO 100 UNIT/ML 3 ML VIAL SUBCUT SCH (19:02)
[2017-02-21] MEDS: MORPHINE SULFATE 10 MG/ML INJ IV PRN (20:07)
[2017-02-21] MEDS: LANSOPRAZOLE 30 MG TAB.RAP.DR PO SCH (20:07)
--- NOTE | 2017-02-21 20:22 | EKG REPORT ---
SEVERITY:- ABNORMAL ECG - SINUS RHYTHM PROBABLE LEFT ATRIAL ABNORMALITY BORDERLINE T ABNORMALITIES, INFERIOR LEADS BORDERLINE PROLONGED QT INTERVAL : Confirmed by: Leo Vallejo MD 21-Feb-2017 20:22:14
--- NOTE | 2017-02-21 20:22 | EKG REPORT ---
SEVERITY:- ABNORMAL ECG - SINUS RHYTHM LEFT VENTRICULAR HYPERTROPHY BORDERLINE T ABNORMALITIES, INFERIOR LEADS BORDERLINE PROLONGED QT INTERVAL : Confirmed by: Leo Vallejo MD 21-Feb-2017 20:21:58
[2017-02-21 20:33] LABS: CREATINE KINASE MB 0.23 ng/mL (<4.55); TROPONIN I 0.013 ng/mL
[2017-02-21] MEDS ORDERED: INSULIN GLARGINE,HUM.REC.ANLOG 300 UNIT/3 ML INSULN.PEN SUBCUT SCH (22:00)
[2017-02-21] MEDS: CARVEDILOL 12.5 MG TABLET PO SCH (22:51)
[2017-02-21] MEDS: HYDRALAZINE HCL 50 MG TABLET PO SCH (22:51)
[2017-02-21] MEDS: ATORVASTATIN CALCIUM 40 MG TABLET PO SCH (22:51)
[2017-02-21] MEDS: HEPARIN SOD (PORCINE) 5,000 UNIT/ML 1 ML SYRINGE SUBCUT SCH (22:51)
[2017-02-22] MEDS: ONDANSETRON HCL INJ/PF 4 MG/2 ML SDV IV PRN (02:17)
[2017-02-22] MEDS: METOCLOPRAMIDE HCL 10 MG TABLET PO PRN ×2 (02:19→11:09)
[2017-02-22 05:41] LABS: HEMATOCRIT 31.3 % (37.9-51.0); HEMOGLOBIN 9.4 g/dL (13.5-17.0); HGB HCT DIFFERENCE -3.1; MEAN CORPUSCULAR HEMOGLOBIN 27.3 pg (27.0-33.4); MEAN CORPUSCULAR HGB CONC 30.1 g/dL (32.0-36.0); MEAN CORPUSCULAR VOLUME 91 fl (80-97); RED BLOOD COUNT 3.45 10^6/uL (4.35-5.55); RED CELL DISTRIBUTION WIDTH 17.2 % (11.5-14.0); WHITE BLOOD COUNT 9.5 10^3/uL (4.0-10.5)
[2017-02-22 05:57] LABS: BLOOD UREA NITROGEN 53 mg/dL (7-20); CALCIUM 8.3 mg/dL (8.4-10.2); CHLORIDE 89 mmol/L (98-107); CHOLESTEROL 125.71 mg/dL (0-200); Direct HDL 30 mg/dL (>40); GLUCOSE 333 mg/dL (75-110); POTASSIUM 4.9 mmol/L (3.6-5.0); SODIUM 142.9 mmol/L (137-145); TRIGLYCERIDES 132 mg/dL (<150)
[2017-02-22 06:07] LABS: DIRECT LDL 52 mg/dL (<100)
[2017-02-22 06:09] LABS: ANION GAP 7 (5-19)
[2017-02-22 06:11] LABS: CARBON DIOXIDE 47 mmol/L (22-30)
[2017-02-22] MEDS: HEPARIN SOD (PORCINE) 5,000 UNIT/ML 1 ML SYRINGE SUBCUT SCH ×3 (06:43→21:45)
[2017-02-22] MEDS: LANSOPRAZOLE 30 MG TAB.RAP.DR PO SCH ×2 (06:43→16:19)
[2017-02-22] MEDS: NORMAL SALINE 1000 ML 1,000 ML IV PRN ×2 (06:43→21:45)
[2017-02-22] MEDS: INSULIN DETEMIR 100 UNIT/ML 3 ML PEN SUBCUT SCH (08:44)
[2017-02-22] MEDS: INSULIN LISPRO 100 UNIT/ML 3 ML VIAL SUBCUT SCH ×2 (08:52→11:24)
[2017-02-22] MEDS ORDERED: (PENDING PHARMACY ID) (Terazosin Hcl [Hytrin] 5 MG) PO SCH (10:00)
[2017-02-22] MEDS ORDERED: LOSARTAN POTASSIUM 25 MG TABLET PO SCH (10:00)
[2017-02-22] MEDS: ASPIRIN 81 MG TABLET, CHEWABLE PO SCH (11:00)
[2017-02-22] MEDS: DOXAZOSIN MESYLATE 4 MG TABLET PO SCH (11:00)
[2017-02-22] MEDS: ALLOPURINOL 100 MG TABLET PO SCH (11:00)
[2017-02-22] MEDS: ISOSORBIDE MONONITRATE 30 MG TAB.ER.24H PO SCH (11:00)
[2017-02-22] MEDS: DOCUSATE SODIUM 100 MG CAPSULE PO PRN (11:00)
[2017-02-22] MEDS: HYDRALAZINE HCL 50 MG TABLET PO SCH ×2 (11:00→21:46)
[2017-02-22] MEDS: FINASTERIDE 5 MG TABLET PO SCH (11:00)
[2017-02-22] MEDS: CARVEDILOL 12.5 MG TABLET PO SCH ×2 (11:00→21:45)
[2017-02-22] MEDS: MORPHINE SULFATE 10 MG/ML INJ IV PRN (11:23)
[2017-02-22] MEDS ORDERED: FENTANYL 12 MCG/HR PATCH.TD72 TD ONE (11:30)
--- NOTE | 2017-02-22 12:07 | PDOC CONSULTATION ---
Consultation Consult Date: 02/22/17 Attending physician:: JESSEE LEAHY Consult reason:: Stage IV gastric ca, intractable nausea and vomiting History of Present Illness Admission Date/PCP: 02/21/17 15:46 JESSEE LEAHY Patient complains of: as above History of Present Illness: 76-year-old male with known history of stage IV gastric cancer, recently had an extensive surgical intervention including endoscopy/EUS with GJ tube placement, also Pleurx catheter placement, he is biopsy-proven to be stage IV gastric cancer with extensive omental metastasis, causing gastric outlet obstruction. He comes in with intractable nausea and vomiting, he has been getting G-tube feeds, and those feeds are going without residuals, but there is gastric residuals secondary to the gastric outlet obstruction, every time nursing pulls out fluid there is usually 2-400 cc in the stomach, and today we discussed options for that. Also patient has a Pleurx catheter in the abdomen, and they are pulling out 1-200 cc of ascites fluid every day. He is doing better today. He is having pain, we discussed reapplying the fentanyl patch. Past Medical History Cardiac Medical History: Reports: Congestive Heart Failure, Hyperlipidema, Hypertension Denies: Coronary Artery Disease, Myocardial Infarction Pulmonary Medical History: Denies: Asthma, Bronchitis, Chronic Obstructive Pulmonary Disease (COPD), Pneumonia Neurological Medical History: Denies: Seizures Endocrine Medical History: Reports: Diabetes Mellitus Type 1, Diabetes Mellitus Type 2 Malignancy Medical History: Reports: Other - Gastric cancer as above GI Medical History: Denies: Cirrhosis Musculoskeltal Medical History: Reports: Arthritis - Legs and arms Psychiatric Medical History: Denies: Depression Hematology: Denies: Anemia Past Surgical History Past Surgical History: Reports: Orthopedic Surgery - Left knee and left hip, Other - Recent GJ tube placement, Pleurx catheter in the abdomen Social History Smoking Status: Never Smoker Frequency of Alcohol Use: Occasional Hx Recreational Drug Use: No Hx Prescription Drug Abuse: No - Advance Directive Resuscitation Status: Full Code Family History Family History: None Parental Family History Reviewed: Yes Children Family History Reviewed: Yes Sibling(s) Family History Reviewed.: Yes Medication/Allergy Home Medications: Allopurinol [Zyloprim 100 mg Tablet] 100 mg PO DAILY 02/21/17 Aspirin [Aspirin 81 mg Chewable Tablet] 81 mg PO DAILY 02/21/17 Atorvastatin Calcium [Lipitor 40 mg Tablet] 40 mg PO QHS 02/21/17 Carvedilol [Coreg 25 mg Tablet] 25 mg PO Q12 02/21/17 Fentanyl [Duragesic 12 Mcg/Hr Transdermal Patch] 12 mcg TOP Q3D@1000 02/21/17 Finasteride [Proscar 5 mg Tablet] 5 mg PO DAILY 02/21/17 Hydralazine HCl [Apresoline 50 mg Tablet] 50 mg PO Q12 02/21/17 Insulin Detemir [Levemir Flextouch] 40 units SQ QHS 02/21/17 Insulin Glargine,Hum.rec.anlog [Lantus Solostar] 40 units SQ QAM 02/21/17 Isosorbide Mononitrate [Isosorbide Mononitrate ER] 30 mg PO DAILY 02/21/17 Losartan Potassium [Cozaar 25 mg Tablet] 25 mg PO DAILY 02/21/17 Metoclopramide HCl [Reglan] 5 mg PO Q6HP PRN 02/21/17 Omeprazole 20 mg PO DAILY 02/21/17 Ondansetron [Zofran Odt 4 mg Tablet] 4 mg PO Q4HP PRN 02/21/17 Oxycodone HCl 5 mg PO Q4HP PRN 02/21/17 Oxycodone HCl/Acetaminophen [Percocet 5-325 mg Tablet] 1 tab PO Q12 02/21/17 Promethazine HCl [Phenergan 25 mg Supp.rect] 1 supp VT Q4HP PRN 02/21/17 Terazosin HCl [Hytrin] 5 mg PO DAILY 02/21/17 Torsemide [Demadex 20 mg Tablet] 20 mg PO DAILY 02/21/17 Allergies/Adverse Reactions: Shellfish * Adverse Reaction (Mild, Verified 02/19/17 08:59) GOUT SHELLFOODS Adverse Reaction (Mild, Uncoded 02/19/17 08:59) GOUT Review of Systems Constitutional: ABSENT: chills, fever(s), headache(s), weight gain, weight loss Eyes: ABSENT: visual disturbances Ears: ABSENT: hearing changes Cardiovascular: ABSENT: chest pain, dyspnea on exertion, edema, orthropnea, palpitations Respiratory: ABSENT: cough, hemoptysis Gastrointestinal: ABSENT: abdominal pain, constipation, diarrhea, hematemesis, hematochezia, nausea, vomiting Genitourinary: ABSENT: dysuria, hematuria Musculoskeletal: ABSENT: joint swelling Integumentary: ABSENT: rash, wounds Neurological: ABSENT: abnormal gait, abnormal speech, confusion, dizziness, focal weakness, syncope Psychiatric: ABSENT: anxiety, depression, homidical ideation, suicidal ideation Endocrine: ABSENT: cold intolerance, heat intolerance, polydipsia, polyuria Hematologic/Lymphatic: ABSENT: easy bleeding, easy bruising Physical Exam Vital Signs: Temp Pulse Resp BP Pulse Ox 98.2 F 76 18 110/43 L 100 02/22/17 08:00 02/22/17 08:00 02/22/17 08:00 02/22/17 08:00 02/22/17 08:00 Intake & Output 02/21/17 02/22/17 02/23/17 06:59 06:59 06:59 Intake Total 1667 Output Total 400 0 Balance 1267 0 Weight 81.3 kg General appearance: PRESENT: no acute distress, well-developed, well-nourished Head exam: PRESENT: atraumatic, normocephalic Eye exam: PRESENT: conjunctiva pink, EOMI, PERRLA. ABSENT: scleral icterus Ear exam: PRESENT: normal external ear exam Mouth exam: PRESENT: moist, tongue midline Neck exam: ABSENT: carotid bruit, JVD, lymphadenopathy, thyromegaly Respiratory exam: PRESENT: clear to auscultation chris. ABSENT: rales, rhonchi, wheezes Cardiovascular exam: PRESENT: RRR. ABSENT: diastolic murmur, rubs, systolic murmur Pulses: PRESENT: normal dorsalis pedis pul Vascular exam: PRESENT: normal capillary refill GI/Abdominal exam: PRESENT: normal bowel sounds, soft. ABSENT: distended, guarding, mass, organolmegaly, rebound, tenderness Rectal exam: PRESENT: deferred Extremities exam: PRESENT: full ROM. ABSENT: calf tenderness, clubbing, pedal edema Neurological exam: PRESENT: alert, awake, oriented to person, oriented to place , oriented to time, oriented to situation, CN II-XII grossly intact. ABSENT: motor sensory deficit Psychiatric exam: PRESENT: appropriate affect, normal mood. ABSENT: homicidal ideation, suicidal ideation Skin exam: PRESENT: dry, intact, warm. ABSENT: cyanosis, rash Results Laboratory Results: 02/22/17 05:25 02/22/17 05:25 02/22/17 02/22/17 05:25 05:25 WBC 9.5 RBC 3.45 L Hgb 9.4 L Hct 31.3 L MCV 91 MCH 27.3 MCHC 30.1 L RDW 17.2 H Plt Count 273 Sodium 142.9 Potassium 4.9 Chloride 89 L Carbon Dioxide 47 H* Anion Gap 7 BUN 53 H Creatinine 1.60 H Est GFR ( Amer) 51 L Est GFR (Non-Af Amer) 42 L Glucose 333 H Calcium 8.3 L Triglycerides 132 Cholesterol 125.71 LDL Cholesterol Direct 52 VLDL Cholesterol 26.0 HDL Cholesterol 30 L 02/21/17 02/21/17 19:56 19:56 Creatine Kinase 21 L CK-MB (CK-2) 0.23 Troponin I 0.013 Impressions: KUB X-Ray 02/21/17 10:22 IMPRESSION: Nonspecific abdomen. Assessment & Plan - Diagnosis (1) Intractable vomiting with nausea Qualifiers: Vomiting type: unspecified Qualified Code(s): R11.2 - Nausea with vomiting, unspecified Is this a current diagnosis for this admission?: YesPlan: Intractable nausea and vomiting secondary to gastric outlet obstruction, today we will institute gastric fluid removal 4 times a day without replacement, we will continue continuous feeds, we will initiate Reglan, and we will hopefully see that nausea will improve. 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 But he needs to get stronger. (3) Pain, neoplasm-related Plan: I will add fentanyl patch, continue with IV morphine, ultimately he will probably need oral liquid morphine. (4) Ascites Qualifiers: Ascites type: malignant Qualified Code(s): R18.0 - Malignant ascites Plan: Malignant ascites, continue with Pleurx drainage - Time Time Spent: Greater than 70 Minutes Critical Time spent with patient: 35 or more minutes - Inpatient Certification Based on my medical assessment, after consideration of the patient's comorbidities, presenting symptoms, or acuity I expect that the services needed warrant INPATIENT care.: Yes I certify that my determination is in accordance with my understanding of Medicare's requirements for reasonable and necessary INPATIENT services [42 CFR 412.3e].: Yes Medical Necessity: Failure to Improve With Outpatient Therapy, Need For IV Fluids, Need For Continuous Telemetry Monitoring
--- NOTE | 2017-02-22 14:43 | PDOC PROGRESS REPORT ---
Subjective Progress Note for:: 02/22/17 Subjective:: Patient is symptomatically improved but not back to baseline yet. Occasional nausea. No vomiting. Patient is tolerating tube feeding. He does not take oral intake at all secondary to gastric cancer. Physical Exam Vital Signs: Temp Pulse Resp BP Pulse Ox 97.7 F 81 18 110/52 L 100 02/22/17 11:36 02/22/17 11:36 02/22/17 11:36 02/22/17 12:08 02/22/17 11:36 Intake & Output 02/21/17 02/22/17 02/23/17 06:59 06:59 06:59 Intake Total 1667 Output Total 400 0 Balance 1267 0 Weight 81.3 kg GENERAL: No acute distress HEENT: Conjunctiva clear, nonicteric, moist mucous membranes, no JVD, midline trachea RESPIRATORY: Clear to auscultation bilaterally, no wheezes, no rhonchi CARDIAC: Regular rate and rhythm, no murmurs/gallops/rubs ABDOMEN: Soft, nondistended, nontender, positive bowel sounds, no rebound, no guarding. Gastrostomy tube in place, peritoneal catheter in place. EXTREMETIES: No edema, cyanosis, clubbing NEUROLOGIC: Alert, oriented to person/place/time, CN's grossly intact, no focal deficits SKIN: No rash, wounds PSYCH: Normal mood, normal affect Results Laboratory Results: 02/22/17 05:25 02/22/17 05:25 02/22/17 02/22/17 05:25 05:25 WBC 9.5 RBC 3.45 L Hgb 9.4 L Hct 31.3 L MCV 91 MCH 27.3 MCHC 30.1 L RDW 17.2 H Plt Count 273 Sodium 142.9 Potassium 4.9 Chloride 89 L Carbon Dioxide 47 H* Anion Gap 7 BUN 53 H Creatinine 1.60 H Est GFR ( Amer) 51 L Est GFR (Non-Af Amer) 42 L Glucose 333 H Calcium 8.3 L Triglycerides 132 Cholesterol 125.71 LDL Cholesterol Direct 52 VLDL Cholesterol 26.0 HDL Cholesterol 30 L 02/21/17 02/21/17 19:56 19:56 Creatine Kinase 21 L CK-MB (CK-2) 0.23 Troponin I 0.013 Impressions: KUB X-Ray 02/21/17 10:22 IMPRESSION: Nonspecific abdomen. Assessment & Plan - Diagnosis (1) Acute kidney injury Is this a current diagnosis for this admission?: YesPlan: Secondary to dehydration. Improving with IV fluids. 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 Deras of oncology following. Patient has peritoneal catheter in place for drainage of malignant ascites. He has a GJ tube in place for feeding. (3) Intractable vomiting with nausea Qualifiers: Vomiting type: unspecified Qualified Code(s): R11.2 - Nausea with vomiting, unspecified Is this a current diagnosis for this admission?: Yes (4) Pain, neoplasm-related Is this a current diagnosis for this admission?: YesPlan: Duragesic patch, oxycodone. (5) Congestive heart failure Qualifiers: Congestive heart failure type: diastolic Congestive heart failure chronicity: chronic Qualified Code(s): I50.32 - Chronic diastolic ( congestive) heart failure Is this a current diagnosis for this admission?: YesPlan: Last echocardiogram in 2014 with EF 35-40%, grade 3/4 diastolic dysfunction. Continue Coreg, Cozaar. Demadex currently on hold secondary to dehydration and acute kidney injury. (6) Diabetes mellitus Qualifiers: Diabetes mellitus type: type 2 Is this a current diagnosis for this admission?: YesPlan: Continue Levemir 40 units subcu daily. Continue sliding scale insulin. - Time Time Spent with patient: 25-34 minutes
[2017-02-22] MEDS ORDERED: INSULIN LISPRO 100 UNIT/ML 3 ML VIAL SUBCUT SCH (16:00)
[2017-02-22] MEDS ORDERED: DEXTROSE 50%-WATER 25 GM/50 ML DISP.SYRIN IV PRN ×2 (16:26)
[2017-02-22] MEDS ORDERED: GLUCAGON,HUMAN RECOMB 1 MG INJ IM PRN (16:26)
[2017-02-22] MEDS ORDERED: DEXTROSE 40% GEL 15 GM TUBE PO PRN ×2 (16:26)
[2017-02-22] MEDS: INSULIN LISPRO 100 UNIT/ML 3 ML VIAL SUBCUT PRN ×2 (18:32→21:45)
[2017-02-22] MEDS: ATORVASTATIN CALCIUM 40 MG TABLET PO SCH (21:45)
[2017-02-23 04:43] LABS: HEMOGLOBIN 8.7 g/dL (13.5-17.0); HGB HCT DIFFERENCE -2.9; MEAN CORPUSCULAR HEMOGLOBIN 27.3 pg (27.0-33.4); MEAN CORPUSCULAR VOLUME 91 fl (80-97); RED BLOOD COUNT 3.19 10^6/uL (4.35-5.55); RED CELL DISTRIBUTION WIDTH 17.6 % (11.5-14.0); WHITE BLOOD COUNT 12.3 10^3/uL (4.0-10.5)
[2017-02-23 05:04] LABS: BLOOD UREA NITROGEN 61 mg/dL (7-20); CALCIUM 8.4 mg/dL (8.4-10.2); CHLORIDE 93 mmol/L (98-107); CREATININE RESULT 1.72 mg/dL (0.52-1.25); GLUCOSE 133 mg/dL (75-110); POTASSIUM 5.5 mmol/L (3.6-5.0); SODIUM 148.5 mmol/L (137-145)
[2017-02-23 05:21] LABS: ANION GAP 12 (5-19); CARBON DIOXIDE 44 mmol/L (22-30)
[2017-02-23] MEDS: HEPARIN SOD (PORCINE) 5,000 UNIT/ML 1 ML SYRINGE SUBCUT SCH ×3 (05:46→22:28)
[2017-02-23] MEDS: LANSOPRAZOLE 30 MG TAB.RAP.DR PO SCH ×2 (05:46→17:39)
[2017-02-23] MEDS: INSULIN DETEMIR 100 UNIT/ML 3 ML PEN SUBCUT SCH (07:53)
[2017-02-23] MEDS: FINASTERIDE 5 MG TABLET PO SCH (10:29)
[2017-02-23] MEDS: ASPIRIN 81 MG TABLET, CHEWABLE PO SCH (10:29)
[2017-02-23] MEDS: DOXAZOSIN MESYLATE 4 MG TABLET PO SCH (10:29)
[2017-02-23] MEDS: HYDRALAZINE HCL 50 MG TABLET PO SCH ×2 (10:29→22:28)
[2017-02-23] MEDS: CARVEDILOL 12.5 MG TABLET PO SCH ×2 (10:29→22:28)
[2017-02-23] MEDS: ISOSORBIDE MONONITRATE 30 MG TAB.ER.24H PO SCH (10:30)
[2017-02-23] MEDS: ALLOPURINOL 100 MG TABLET PO SCH (10:30)
[2017-02-23] MEDS: DOCUSATE SODIUM 100 MG CAPSULE PO PRN (10:32)
[2017-02-23] MEDS: 1/2 NORMAL SALINE 1,000 ML IV PRN ×2 (10:56→21:36)
--- NOTE | 2017-02-23 11:56 | PDOC PROGRESS REPORT ---
Subjective Progress Note for:: 02/23/17 Subjective:: Patient is symptomatically improved but not back to baseline yet. No nausea or vomiting. Patient is tolerating tube feeding. He does not take oral intake at all secondary to gastric cancer. Physical Exam Vital Signs: Temp Pulse Resp BP Pulse Ox 97.4 F 71 20 136/68 H 94 02/23/17 08:00 02/23/17 08:00 02/23/17 08:00 02/23/17 08:00 02/23/17 08:00 Intake & Output 02/22/17 02/23/17 02/24/17 06:59 06:59 06:59 Intake Total 1667 3309 420 Output Total 400 650 420 Balance 1267 2659 0 Weight 81.3 kg GENERAL: No acute distress HEENT: Conjunctiva clear, nonicteric, moist mucous membranes, no JVD, midline trachea RESPIRATORY: Clear to auscultation bilaterally, no wheezes, no rhonchi CARDIAC: Regular rate and rhythm, no murmurs/gallops/rubs ABDOMEN: Soft, nondistended, nontender, positive bowel sounds, no rebound, no guarding. Gastrostomy tube in place, peritoneal catheter in place. EXTREMETIES: No edema, cyanosis, clubbing NEUROLOGIC: Alert, oriented to person/place/time, CN's grossly intact, no focal deficits SKIN: No rash, wounds PSYCH: Normal mood, normal affect Results Laboratory Results: 02/23/17 04:32 02/23/17 04:32 02/23/17 02/23/17 04:32 04:32 WBC 12.3 H RBC 3.19 L Hgb 8.7 L Hct 29.0 L MCV 91 MCH 27.3 MCHC 30.0 L RDW 17.6 H Plt Count 307 Sodium 148.5 H Potassium 5.5 H Chloride 93 L Carbon Dioxide 44 H* Anion Gap 12 BUN 61 H Creatinine 1.72 H Est GFR ( Amer) 47 L Est GFR (Non-Af Amer) 39 L Glucose 133 H Calcium 8.4 02/21/17 02/21/17 19:56 19:56 Creatine Kinase 21 L CK-MB (CK-2) 0.23 Troponin I 0.013 Impressions: KUB X-Ray 02/21/17 10:22 IMPRESSION: Nonspecific abdomen. Assessment & Plan - Diagnosis (1) Acute kidney injury Is this a current diagnosis for this admission?: YesPlan: Secondary to dehydration. Improving with IV fluids. Discontinue Cozaar for now. (2) Hyperkalemia Is this a current diagnosis for this admission?: YesPlan: Discontinue Cozaar. Continue IV fluids. 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 Deras of oncology following. Patient has peritoneal catheter in place for drainage of malignant ascites. He has a GJ tube in place for feeding. (4) Intractable vomiting with nausea Qualifiers: Vomiting type: unspecified Qualified Code(s): R11.2 - Nausea with vomiting, unspecified Is this a current diagnosis for this admission?: Yes (5) Pain, neoplasm-related Is this a current diagnosis for this admission?: YesPlan: Duragesic patch, oxycodone. (6) Congestive heart failure Qualifiers: Congestive heart failure type: diastolic Congestive heart failure chronicity: chronic Qualified Code(s): I50.32 - Chronic diastolic ( congestive) heart failure Is this a current diagnosis for this admission?: YesPlan: Last echocardiogram in 2014 with EF 35-40%, grade 3/4 diastolic dysfunction. Continue Coreg, Cozaar. Demadex currently on hold secondary to dehydration and acute kidney injury. (7) Diabetes mellitus Qualifiers: Diabetes mellitus type: type 2 Is this a current diagnosis for this admission?: YesPlan: Patient was very hyperglycemic yesterday. Tube feedings were changed to Glucerna and hyperglycemia resolved. Continue Levemir 40 units subcu daily. Continue sliding scale insulin. (8) Anemia Is this a current diagnosis for this admission?: YesPlan: Secondary to gastric malignancy. Decline in hemoglobin likely secondary to hemodilution effect. Continue to monitor H&H and transfuse for hemoglobin less than 8.0. - Time Time Spent with patient: 35 or more minutes
[2017-02-23] MEDS: ATORVASTATIN CALCIUM 40 MG TABLET PO SCH (22:28)
[2017-02-23] MEDS: MORPHINE SULFATE 10 MG/ML INJ IV PRN (22:28)
[2017-02-23] MEDS: ONDANSETRON HCL INJ/PF 4 MG/2 ML SDV IV PRN (23:27)
[2017-02-24 04:06] LABS: ABSOLUTE BASOPHILS # (AUTO) 0.1 10^3/uL (0.0-0.2); ABSOLUTE EOSINOPHILS # (AUTO) 0.1 10^3/uL (0.0-0.6); ABSOLUTE LYMPHOCYTES (AUTO) 1.2 10^3/uL (0.5-4.7); ABSOLUTE MONOCYTES (AUTO) 0.9 10^3/uL (0.1-1.4); EOSINOPHILS % (AUTO) 0.8 % (0-6); HEMATOCRIT 29.6 % (37.9-51.0); HEMOGLOBIN 8.8 g/dL (13.5-17.0); HGB HCT DIFFERENCE -3.2; LYMPHOCYTES % (AUTO) 10.5 % (13-45); MEAN CORPUSCULAR HGB CONC 29.6 g/dL (32.0-36.0); MEAN CORPUSCULAR VOLUME 91 fl (80-97); MONOCYTES % (AUTO) 7.7 % (3-13); RED BLOOD COUNT 3.25 10^6/uL (4.35-5.55); RED CELL DISTRIBUTION WIDTH 17.6 % (11.5-14.0); WHITE BLOOD COUNT 11.3 10^3/uL (4.0-10.5)
[2017-02-24 04:22] LABS: BLOOD UREA NITROGEN 51 mg/dL (7-20); CALCIUM 8.2 mg/dL (8.4-10.2); CHLORIDE 94 mmol/L (98-107); CREATININE RESULT 1.23 mg/dL (0.52-1.25); GLUCOSE 77 mg/dL (75-110); SODIUM 143.2 mmol/L (137-145)
[2017-02-24 04:29] LABS: ANION GAP 10 (5-19)
[2017-02-24 04:35] LABS: CARBON DIOXIDE 39 mmol/L (22-30); POTASSIUM 4.3 mmol/L (3.6-5.0)
[2017-02-24] MEDS: 1/2 NORMAL SALINE 1,000 ML IV PRN (06:28)
[2017-02-24] MEDS: HEPARIN SOD (PORCINE) 5,000 UNIT/ML 1 ML SYRINGE SUBCUT SCH ×3 (06:31→21:46)
[2017-02-24] MEDS: LANSOPRAZOLE 30 MG TAB.RAP.DR PO SCH ×2 (06:31→17:39)
--- NOTE | 2017-02-24 08:34 | PDOC PROGRESS REPORT ---
Subjective Progress Note for:: 02/24/17 Subjective:: Pt did a little better w/ scheduled gastric emptying via syringe, still w/ significant pain, will increase fentanyl to 25mcg, having BG down to 50s this am , so will change glucerna back to jevity and recommended decrease in long acting insulin. Had less nausea over last 24 hours. Physical Exam Vital Signs: Temp Pulse Resp BP Pulse Ox 97.8 F 73 16 118/57 L 100 02/24/17 07:55 02/24/17 07:55 02/24/17 07:55 02/24/17 07:55 02/24/17 07:55 Intake & Output 02/23/17 02/24/17 02/25/17 06:59 06:59 06:59 Intake Total 3309 3841 Output Total 650 1335 Balance 2659 2506 Weight 88.3 kg General appearance: PRESENT: no acute distress, well-developed, well-nourished Head exam: PRESENT: atraumatic, normocephalic Eye exam: PRESENT: conjunctiva pink, EOMI, PERRLA. ABSENT: scleral icterus Ear exam: PRESENT: normal external ear exam Mouth exam: PRESENT: moist, tongue midline Neck exam: ABSENT: carotid bruit, JVD, lymphadenopathy, thyromegaly Respiratory exam: PRESENT: clear to auscultation chris. ABSENT: rales, rhonchi, wheezes Cardiovascular exam: PRESENT: RRR. ABSENT: diastolic murmur, rubs, systolic murmur Pulses: PRESENT: normal dorsalis pedis pul Vascular exam: PRESENT: normal capillary refill GI/Abdominal exam: PRESENT: normal bowel sounds, soft. ABSENT: distended, guarding, mass, organolmegaly, rebound, tenderness Rectal exam: PRESENT: deferred Extremities exam: PRESENT: full ROM. ABSENT: calf tenderness, clubbing, pedal edema Neurological exam: PRESENT: alert, awake, oriented to person, oriented to place , oriented to time, oriented to situation, CN II-XII grossly intact. ABSENT: motor sensory deficit Psychiatric exam: PRESENT: appropriate affect, normal mood. ABSENT: homicidal ideation, suicidal ideation Skin exam: PRESENT: dry, intact, warm. ABSENT: cyanosis, rash Results Laboratory Results: 02/24/17 03:47 02/24/17 03:47 02/24/17 02/24/17 03:47 03:47 WBC 11.3 H RBC 3.25 L Hgb 8.8 L Hct 29.6 L MCV 91 MCH 27.0 MCHC 29.6 L RDW 17.6 H Plt Count 288 Seg Neutrophils % 80.0 H Lymphocytes % 10.5 L Monocytes % 7.7 Eosinophils % 0.8 Basophils % 1.0 Absolute Neutrophils 9.0 H Absolute Lymphocytes 1.2 Absolute Monocytes 0.9 Absolute Eosinophils 0.1 Absolute Basophils 0.1 Sodium 143.2 Potassium 4.3 D Chloride 94 L Carbon Dioxide 39 H Anion Gap 10 BUN 51 H Creatinine 1.23 Est GFR ( Amer) > 60 Est GFR (Non-Af Amer) 58 L Glucose 77 Calcium 8.2 L 02/21/17 02/21/17 19:56 19:56 Creatine Kinase 21 L CK-MB (CK-2) 0.23 Troponin I 0.013 Impressions: KUB X-Ray 02/21/17 10:22 IMPRESSION: Nonspecific abdomen. Assessment & Plan - Diagnosis (1) Intractable vomiting with nausea Qualifiers: Vomiting type: unspecified Qualified Code(s): R11.2 - Nausea with vomiting, unspecified Is this a current diagnosis for this admission?: YesPlan: Improved, multifactorial, con't w/ current regimen x 24 more hours and see, possible d/c tomorrow if not having significant nausea and pain. 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 Is this a current diagnosis for this admission?: YesPlan: Still considering outpt chemorx, will reeval once pt gets home (3) Pain, neoplasm-related Is this a current diagnosis for this admission?: YesPlan: Inc fentanyl, will need to maximize pain control prior to d/c (4) Ascites Qualifiers: Ascites type: malignant Qualified Code(s): R18.0 - Malignant ascites Plan: cont drainage daily thru tube - Time Time Spent with patient: 35 or more minutes Critical Time spent with patient: 35 or more minutes Disposition: Had long discussion w/ family today, >45min - Inpatient Certification Based on my medical assessment, after consideration of the patient's comorbidities, presenting symptoms, or acuity I expect that the services needed warrant INPATIENT care.: Yes I certify that my determination is in accordance with my understanding of Medicare's requirements for reasonable and necessary INPATIENT services [42 CFR 412.3e].: Yes Medical Necessity: Failure to Improve With Outpatient Therapy, Need For IV Fluids, Need For Continuous Telemetry Monitoring, Need for Pain Control
--- NOTE | 2017-02-24 09:29 | Physician Advisory Note ---
Physician Advisor ProgressNote .: Pursuant to the plan [facility], I have reviewed the medical record for this patient. Physician Advisor Statement: Please consider documentin. "chronic hypoxemic resp failure due to ___" [reportedly uses O2 at baseline , sat as low as 84% RA] 2. "Chronic opioid dependency due to CA" 3. "Acute hypernatremia, likely due to intravascular volume depletion," resolved after continued IVF 4. status (below) Status: appropriate to change to Inpt as of 02/22 when pt still not back to baseline despite IVF & antiemetics, with continued VIDAL. Pt still w/VIDAL on 02/23 as well, + acute hypernatremia, continued acute on chronic metabolic alkalosis. Thanks! CK
[2017-02-24] MEDS ORDERED: INSULIN DETEMIR 100 UNIT/ML 3 ML PEN SUBCUT ONE (09:30)
[2017-02-24] MEDS: CARVEDILOL 12.5 MG TABLET PO SCH ×2 (09:50→21:47)
[2017-02-24] MEDS: ASPIRIN 81 MG TABLET, CHEWABLE PO SCH (09:51)
[2017-02-24] MEDS: FINASTERIDE 5 MG TABLET PO SCH (09:51)
[2017-02-24] MEDS: ALLOPURINOL 100 MG TABLET PO SCH (09:51)
[2017-02-24] MEDS: HYDRALAZINE HCL 50 MG TABLET PO SCH ×2 (09:51→21:47)
[2017-02-24] MEDS: ISOSORBIDE MONONITRATE 30 MG TAB.ER.24H PO SCH (09:51)
[2017-02-24] MEDS: DOXAZOSIN MESYLATE 4 MG TABLET PO SCH (09:51)
[2017-02-24] MEDS: DOCUSATE SODIUM 100 MG CAPSULE PO PRN (09:58)
[2017-02-24] MEDS ORDERED: FENTANYL 25 MCG/HR PATCH.TD72 TD SCH (10:00)
[2017-02-24] MEDS: ONDANSETRON HCL INJ/PF 4 MG/2 ML SDV IV PRN (11:25)
[2017-02-24] MEDS: MORPHINE SULFATE 10 MG/ML INJ IV PRN (11:28)
[2017-02-24] MEDS: PROMETHAZINE HCL 25 MG SUPP.RECT PR PRN ×2 (12:04→21:46)
[2017-02-24] MEDS: INSULIN LISPRO 100 UNIT/ML 3 ML VIAL SUBCUT PRN ×3 (12:08→21:47)
[2017-02-24] MEDS ORDERED: ZOLPIDEM TARTRATE 5 MG TABLET PO PRN (15:26)
[2017-02-24] MEDS ORDERED: DOCUSATE SODIUM 100 MG CAPSULE PO PRN (15:28)
[2017-02-24] MEDS ORDERED: MORPHINE SULFATE 10 MG/ML INJ IV PRN (15:31)
[2017-02-24] MEDS ORDERED: ACETAMINOPHEN 325 MG TABLET PO PRN (15:32)
[2017-02-24] MEDS ORDERED: ONDANSETRON HCL INJ/PF 4 MG/2 ML SDV IV PRN (15:32)
--- NOTE | 2017-02-24 16:51 | PDOC PROGRESS REPORT ---
Subjective Progress Note for:: 02/24/17 Subjective:: He is better today and nausea/vomiting decreased remarkable. He was switched to Jevity earlier today due to hypoglycemia of 50 this am, but the dietitian called and wanted him switched back to Glucerna due to hyperglycemia after his Levemir was decreased to 30 iu qam today.His kidney functions is back to normal and metabolic alkalosis resolved.His pain control has improved. We will keep him till tomorrow and for possible discharge if he back to his baseline. Physical Exam Vital Signs: Temp Pulse Resp BP Pulse Ox 97.6 F 78 18 110/44 L 100 02/24/17 11:41 02/24/17 11:41 02/24/17 11:41 02/24/17 11:41 02/24/17 11:41 Intake & Output 02/23/17 02/24/17 02/25/17 06:59 06:59 06:59 Intake Total 3309 3841 Output Total 650 1335 350 Balance 2659 2506 -350 Weight 88.3 kg General appearance: PRESENT: no acute distress, cooperative, morbidly obese Head exam: PRESENT: atraumatic, normocephalic Eye exam: PRESENT: EOMI, PERRLA Mouth exam: PRESENT: neck supple, tongue midline Neck exam: PRESENT: full ROM Respiratory exam: PRESENT: clear to auscultation chris, symmetrical Cardiovascular exam: PRESENT: +S1, +S2 Pulses: PRESENT: +2 pedal pulses bilateral GI/Abdominal exam: PRESENT: ascites, distended, mass, tenderness Rectal exam: PRESENT: deferred Extremities exam: PRESENT: full ROM Neurological exam: PRESENT: alert, oriented to person, oriented to place Psychiatric exam: PRESENT: anxious Results Laboratory Results: 02/24/17 03:47 02/24/17 03:47 02/24/17 02/24/17 03:47 03:47 WBC 11.3 H RBC 3.25 L Hgb 8.8 L Hct 29.6 L MCV 91 MCH 27.0 MCHC 29.6 L RDW 17.6 H Plt Count 288 Seg Neutrophils % 80.0 H Lymphocytes % 10.5 L Monocytes % 7.7 Eosinophils % 0.8 Basophils % 1.0 Absolute Neutrophils 9.0 H Absolute Lymphocytes 1.2 Absolute Monocytes 0.9 Absolute Eosinophils 0.1 Absolute Basophils 0.1 Sodium 143.2 Potassium 4.3 D Chloride 94 L Carbon Dioxide 39 H Anion Gap 10 BUN 51 H Creatinine 1.23 Est GFR ( Amer) > 60 Est GFR (Non-Af Amer) 58 L Glucose 77 Calcium 8.2 L Impressions: KUB X-Ray 02/21/17 10:22 IMPRESSION: Nonspecific abdomen. Assessment & Plan - Diagnosis (1) Intractable vomiting with nausea Qualifiers: Vomiting type: unspecified Qualified Code(s): R11.2 - Nausea with vomiting, unspecified Is this a current diagnosis for this admission?: YesPlan: Ct with IVF fluids half normal saline at 1oo cc/hr; Zofran 4 mg q4h IV prn. CT with Promethazine 25 mg q6h prn. Monitor chemistries daily. (2) Acute kidney injury Is this a current diagnosis for this admission?: YesPlan: Ct with IV fluids half normal saline at 100 cc/hr cautiously due to hx of CHF; Avoid nephrotoxics; daily weight; strict input/out put chart; monitor chemistries daily. (3) Diabetes mellitus Qualifiers: Diabetes mellitus type: type 2 Is this a current diagnosis for this admission?: YesPlan: Ct with Levemir 30 iu qam subcut; Accucheck qac, qhs with slidding with humalog insulin as per [facility] protocol.Ct with Glucerna via GJ tube as directed. (4) Ascites Qualifiers: Ascites type: malignant Is this a current diagnosis for this admission?: YesPlan: Ct with daily drainage via Pleurx tube. 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 (6) Hypertension Qualifiers: Hypertension type: essential hypertension Qualified Code(s): I10 - Essential (primary) hypertension Is this a current diagnosis for this admission?: YesPlan: Ct with Coreg 25 mg BID PO; Hydralazine 50 mg BID po; Isosorbide mononitrate 30 mg qd po; 2 g sodium diet. (7) Hyperlipidemia Qualifiers: Hyperlipidemia type: mixed hyperlipidemia Qualified Code(s): E78.2 - Mixed hyperlipidemia Is this a current diagnosis for this admission?: YesPlan: Ct with 200 mg cholesterol diet. (8) Congestive heart failure Qualifiers: Congestive heart failure type: diastolic Congestive heart failure chronicity: chronic Qualified Code(s): I50.32 - Chronic diastolic ( congestive) heart failure Is this a current diagnosis for this admission?: YesPlan: Hold Torsemide due to dehydration and acute kidney injury; Monitor chemistries daily; strict in put/out put chart. (9) Reflux esophagitis Is this a current diagnosis for this admission?: YesPlan: CT with Prevacid 30 mg qd po since we do not have Omeprazole in our formulary. (10) Constipation Qualifiers: Constipation type: unspecified constipation type Qualified Code(s): K59.00 - Constipation, unspecified Is this a current diagnosis for this admission?: YesPlan: Ct with Colace 100 mg qd po. (11) Osteoarthritis Qualifiers: Osteoarthritis location: knee Laterality: bilateral Is this a current diagnosis for this admission?: YesPlan: CT with Percocet 5/325 1 q6h prn po. (12) Gout Is this a current diagnosis for this admission?: YesPlan: Ct with Allopurinol 100 mg qd po (13) Sleep apnea, obstructive Is this a current diagnosis for this admission?: YesPlan: Ct with CPAP at night (14) BPH (benign prostatic hyperplasia) Is this a current diagnosis for this admission?: YesPlan: Ct with Terazosin 5 mg qd po (15) DVT prophylaxis Is this a current diagnosis for this admission?: YesPlan: Ct with Heparin 5000 iu q8h subcut; SCD.
[2017-02-24] MEDS: ATORVASTATIN CALCIUM 40 MG TABLET PO SCH (21:47)
[2017-02-25] MEDS: PROMETHAZINE HCL 25 MG SUPP.RECT PR PRN ×2 (02:27→10:58)
[2017-02-25] MEDS: LANSOPRAZOLE 30 MG TAB.RAP.DR PO SCH (05:53)
[2017-02-25] MEDS: 1/2 NORMAL SALINE 1,000 ML IV PRN (05:55)
[2017-02-25] MEDS: HEPARIN SOD (PORCINE) 5,000 UNIT/ML 1 ML SYRINGE SUBCUT SCH (05:57)
[2017-02-25 06:36] LABS: ABSOLUTE BASOPHILS # (AUTO) 0.1 10^3/uL (0.0-0.2); ABSOLUTE EOSINOPHILS # (AUTO) 0.1 10^3/uL (0.0-0.6); ABSOLUTE LYMPHOCYTES (AUTO) 1.3 10^3/uL (0.5-4.7); ABSOLUTE MONOCYTES (AUTO) 1.2 10^3/uL (0.1-1.4); ABSOLUTE NEUT (AUTO) 10.1 10^3/uL (1.7-8.2); BASOPHILS % (AUTO) 0.5 % (0-2); EOSINOPHILS % (AUTO) 0.6 % (0-6); HEMATOCRIT 29.1 % (37.9-51.0); HEMOGLOBIN 8.6 g/dL (13.5-17.0); HGB HCT DIFFERENCE -3.3; LYMPHOCYTES % (AUTO) 10.1 % (13-45); MEAN CORPUSCULAR HEMOGLOBIN 26.9 pg (27.0-33.4); MEAN CORPUSCULAR HGB CONC 29.7 g/dL (32.0-36.0); MEAN CORPUSCULAR VOLUME 91 fl (80-97); MONOCYTES % (AUTO) 9.3 % (3-13); RED BLOOD COUNT 3.21 10^6/uL (4.35-5.55); RED CELL DISTRIBUTION WIDTH 17.5 % (11.5-14.0); SEGMENTED NEUTROPHILS % (AUTO) 79.5 % (42-78); WHITE BLOOD COUNT 12.8 10^3/uL (4.0-10.5)
[2017-02-25 07:07] LABS: ALANINE AMINOTRANSFERASE 31 U/L (21-72); ALBUMIN 2.5 g/dL (3.5-5.0); ALKALINE PHOSPHATASE 427 U/L (38-126); ASPARTATE AMINO TRANSFERASE 43 U/L (17-59); BILIRUBIN,DIRECT 0.5 mg/dL (0.0-0.4); BILIRUBIN,TOTAL 0.6 mg/dL (0.2-1.3); BLOOD UREA NITROGEN 48 mg/dL (7-20); CALCIUM 7.8 mg/dL (8.4-10.2); CHLORIDE 91 mmol/L (98-107); CREATININE RESULT 1.11 mg/dL (0.52-1.25); GLUCOSE 169 mg/dL (75-110); POTASSIUM 4.7 mmol/L (3.6-5.0); SODIUM 140.2 mmol/L (137-145); TOTAL PROTEIN 6.2 g/dL (6.3-8.2)
[2017-02-25 07:13] LABS: ANION GAP 10 (5-19)
[2017-02-25 07:19] LABS: CARBON DIOXIDE 39 mmol/L (22-30)
[2017-02-25] MEDS ORDERED: INSULIN DETEMIR 100 UNIT/ML 3 ML PEN SUBCUT SCH (08:00)
--- NOTE | 2017-02-25 08:23 | PDOC PROGRESS REPORT ---
Subjective Progress Note for:: 02/25/17 Subjective:: No acute events overnight, still had some emesis, but overall yesterday was the best day that he has had. Physical Exam Vital Signs: Temp Pulse Resp BP Pulse Ox 97.9 F 80 14 119/66 100 02/24/17 23:50 02/25/17 02:00 02/24/17 23:50 02/24/17 23:50 02/24/17 23:50 Intake & Output 02/24/17 02/25/17 02/26/17 06:59 06:59 06:59 Intake Total 3841 2925 Output Total 1335 910 Balance 2506 2014 Weight 88.3 kg 88 kg General appearance: PRESENT: no acute distress, well-developed, well-nourished Head exam: PRESENT: atraumatic, normocephalic Eye exam: PRESENT: conjunctiva pink, EOMI, PERRLA. ABSENT: scleral icterus Ear exam: PRESENT: normal external ear exam Mouth exam: PRESENT: moist, tongue midline Neck exam: ABSENT: carotid bruit, JVD, lymphadenopathy, thyromegaly Respiratory exam: PRESENT: clear to auscultation chris. ABSENT: rales, rhonchi, wheezes Cardiovascular exam: PRESENT: RRR. ABSENT: diastolic murmur, rubs, systolic murmur Pulses: PRESENT: normal dorsalis pedis pul Vascular exam: PRESENT: normal capillary refill GI/Abdominal exam: PRESENT: normal bowel sounds, soft. ABSENT: distended, guarding, mass, organolmegaly, rebound, tenderness Rectal exam: PRESENT: deferred Extremities exam: PRESENT: full ROM. ABSENT: calf tenderness, clubbing, pedal edema Neurological exam: PRESENT: alert, awake, oriented to person, oriented to place , oriented to time, oriented to situation, CN II-XII grossly intact. ABSENT: motor sensory deficit Psychiatric exam: PRESENT: appropriate affect, normal mood. ABSENT: homicidal ideation, suicidal ideation Skin exam: PRESENT: dry, intact, warm. ABSENT: cyanosis, rash Results Laboratory Results: 02/25/17 06:19 02/25/17 06:19 02/25/17 02/25/17 06:19 06:19 WBC 12.8 H RBC 3.21 L Hgb 8.6 L Hct 29.1 L MCV 91 MCH 26.9 L MCHC 29.7 L RDW 17.5 H Plt Count 300 Seg Neutrophils % 79.5 H Lymphocytes % 10.1 L Monocytes % 9.3 Eosinophils % 0.6 Basophils % 0.5 Absolute Neutrophils 10.1 H Absolute Lymphocytes 1.3 Absolute Monocytes 1.2 Absolute Eosinophils 0.1 Absolute Basophils 0.1 Sodium 140.2 Potassium 4.7 Chloride 91 L Carbon Dioxide 39 H Anion Gap 10 BUN 48 H Creatinine 1.11 Est GFR ( Amer) > 60 Est GFR (Non-Af Amer) > 60 Glucose 169 H Calcium 7.8 L Total Bilirubin 0.6 AST 43 ALT 31 Alkaline Phosphatase 427 H Total Protein 6.2 L Albumin 2.5 L Impressions: KUB X-Ray 02/21/17 10:22 IMPRESSION: Nonspecific abdomen. Assessment & Plan - Diagnosis (1) Intractable vomiting with nausea Qualifiers: Vomiting type: unspecified Qualified Code(s): R11.2 - Nausea with vomiting, unspecified Is this a current diagnosis for this admission?: YesPlan: Improved, continue with fluid removal from the gastric tube, I have asked nursing to teach family how to do that, ultimately they will need to do that at home. 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 Mon to write for liquid morphine along with the oxycodone. (4) Ascites Qualifiers: Ascites type: malignant Is this a current diagnosis for this admission?: YesPlan: Continue with daily fluid removal - Time Time Spent with patient: 35 or more minutes Critical Time spent with patient: 35 or more minutes Anticipated discharge: Home, Home with Homehealth Within: within 24 hours
--- NOTE | 2017-02-25 09:24 | PDOC DISCHARGE SUMMARY ---
General - Admit/Disc Date/PCP Admission Date/Primary Care Provider: 02/22/17 08:00 JESSEE LEAHY Discharge Date: 02/25/17 - Discharge Diagnosis (1) Intractable vomiting with nausea Is this a current diagnosis for this admission?: Yes (2) Acute kidney injury Is this a current diagnosis for this admission?: Yes (3) Diabetes mellitus Is this a current diagnosis for this admission?: Yes (4) Ascites Is this a current diagnosis for this admission?: Yes (5) Gastric cancer Is this a current diagnosis for this admission?: Yes (6) Hypertension Is this a current diagnosis for this admission?: Yes (7) Hyperlipidemia Is this a current diagnosis for this admission?: Yes (8) Congestive heart failure Is this a current diagnosis for this admission?: Yes (9) Reflux esophagitis Is this a current diagnosis for this admission?: Yes (10) Constipation Is this a current diagnosis for this admission?: Yes (11) Osteoarthritis Is this a current diagnosis for this admission?: Yes (12) Gout Is this a current diagnosis for this admission?: Yes (13) Sleep apnea, obstructive Is this a current diagnosis for this admission?: Yes (14) BPH (benign prostatic hyperplasia) Is this a current diagnosis for this admission?: Yes (15) DVT prophylaxis Is this a current diagnosis for this admission?: Yes - Additional Information Resuscitation Status: Full Code Discharge Activity: Activity As Tolerated Home Medications: Allopurinol [Zyloprim 100 mg Tablet] 100 mg PO DAILY 02/21/17 Aspirin [Aspirin 81 mg Chewable Tablet] 81 mg PO DAILY 02/21/17 Atorvastatin Calcium [Lipitor 40 mg Tablet] 40 mg PO QHS 02/21/17 Carvedilol [Coreg 25 mg Tablet] 25 mg PO Q12 02/21/17 Fentanyl [Duragesic 12 Mcg/Hr Transdermal Patch] 12 mcg TOP Q3D@1000 02/21/17 Finasteride [Proscar 5 mg Tablet] 5 mg PO DAILY 02/21/17 Hydralazine HCl [Apresoline 50 mg Tablet] 50 mg PO Q12 02/21/17 Isosorbide Mononitrate [Isosorbide Mononitrate ER] 30 mg PO DAILY 02/21/17 Metoclopramide HCl [Reglan] 5 mg PO Q6HP PRN 02/21/17 Omeprazole 20 mg PO DAILY 02/21/17 Ondansetron [Zofran Odt 4 mg Tablet] 4 mg PO Q4HP PRN 02/21/17 Oxycodone HCl 5 mg PO Q4HP PRN 02/21/17 Promethazine HCl [Phenergan 25 mg Supp.rect] 1 supp HI Q4HP PRN 02/21/17 Terazosin HCl [Hytrin] 5 mg PO DAILY 02/21/17 Insulin Detemir [Levemir Flextouch] 30 units SQ QAM #0 02/25/17 Morphine Sulfate [Roxanol] 5 mg PO Q4H PRN #30 ml 02/25/17 History of Present Illness History of Present Illness: JASMIN ELLSWORTH is a 76 year old male with hx of DM2/hTN/HYperlipidemia/ CHF/ DELVIS on CPAP/DM nephropathy/GERD/Constipation/BPH/Gout/Morbid obesity/Vitamin D def, who was recently diagnosed with adenocarcinoma of stomach, pancreas and small bowel.He had PEG tube placement 1 week ago and is being prepared for chemotherapy.He started having nausea/vomiting about 3 days ago and was seen at ER 2 days ago and according to patient, the oral medications is not helping with the vomiting and it is getting worse, hence he came back to ER for evaluation and mgt. His BUN/Cr has increased form 38/1.1 on 02/19/2017 to 56/ 2.1 today and her bicarbonate has increased from 38 on 02/19/2017 to 49 today. 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 He had IV fluids, IV analgesics, IV Zofran, Reglan and promethazine by suppository.He had draining of ascitic fluid daily via Pleurx.He is stable today and will be discharged home with hospital bed and home health services and to follow up with Dr Deras for consideration for chemotherapy. Physical Exam Vital Signs: Temp Pulse Resp BP Pulse Ox 98.0 F 77 17 135/56 H 100 02/25/17 08:05 02/25/17 08:05 02/25/17 08:05 02/25/17 08:05 02/25/17 08:05 Intake & Output 02/24/17 02/25/17 02/26/17 06:59 06:59 06:59 Intake Total 9356 7215 Output Total 2546 910 Balance 2506 2014 Weight 88.3 kg 88 kg General appearance: PRESENT: no acute distress, cooperative, morbidly obese, well-nourished Head exam: PRESENT: atraumatic, normocephalic Eye exam: PRESENT: EOMI, PERRLA Mouth exam: PRESENT: neck supple Neck exam: PRESENT: full ROM Respiratory exam: PRESENT: clear to auscultation chris, symmetrical Cardiovascular exam: PRESENT: +S1, +S2 Pulses: PRESENT: +2 pedal pulses bilateral GI/Abdominal exam: PRESENT: distended, mass, normal bowel sounds Rectal exam: PRESENT: deferred Neurological exam: PRESENT: alert, awake, oriented to person, oriented to place , oriented to time Results Laboratory Results: 02/25/17 06:19 02/25/17 06:19 02/25/17 02/25/17 06:19 06:19 WBC 12.8 H RBC 3.21 L Hgb 8.6 L Hct 29.1 L MCV 91 MCH 26.9 L MCHC 29.7 L RDW 17.5 H Plt Count 300 Seg Neutrophils % 79.5 H Lymphocytes % 10.1 L Monocytes % 9.3 Eosinophils % 0.6 Basophils % 0.5 Absolute Neutrophils 10.1 H Absolute Lymphocytes 1.3 Absolute Monocytes 1.2 Absolute Eosinophils 0.1 Absolute Basophils 0.1 Sodium 140.2 Potassium 4.7 Chloride 91 L Carbon Dioxide 39 H Anion Gap 10 BUN 48 H Creatinine 1.11 Est GFR ( Amer) > 60 Est GFR (Non-Af Amer) > 60 Glucose 169 H Calcium 7.8 L Total Bilirubin 0.6 AST 43 ALT 31 Alkaline Phosphatase 427 H Total Protein 6.2 L Albumin 2.5 L Impressions: KUB X-Ray 02/21/17 10:22 IMPRESSION: Nonspecific abdomen.
[2017-02-25] MEDS ORDERED: FENTANYL 12 MCG/HR PATCH.TD72 TD SCH (10:00)
[2017-02-25] MEDS: HYDRALAZINE HCL 50 MG TABLET PO SCH (10:57)
[2017-02-25] MEDS: CARVEDILOL 12.5 MG TABLET PO SCH (10:57)
[2017-02-25] MEDS: ASPIRIN 81 MG TABLET, CHEWABLE PO SCH (10:58)
[2017-02-25] MEDS: DOXAZOSIN MESYLATE 4 MG TABLET PO SCH (10:58)
[2017-02-25] MEDS: ALLOPURINOL 100 MG TABLET PO SCH (10:58)
[2017-02-25] MEDS: FINASTERIDE 5 MG TABLET PO SCH (13:25)
[2017-02-25] MEDS: ISOSORBIDE MONONITRATE 30 MG TAB.ER.24H PO SCH (13:25)
[2017-02-25 15:36] VITALS: BP 119/87
== END 2017-02-25 15:12 | disposition home health service (06) | DRG 682 ==
LOC: ER 10:13 → EH 13:27 → UNDOADMOB 13:27 → EH 15:03 → 5 15:03 → OBSVTOIN 02-22 08:00
PROVIDERS: ADMIT Internal Medicine; ATTEND Internal Medicine
DX: N17.9 Acute kidney failure, unspecified (principal); J96.01 Acute respiratory failure with hypoxia; C16.3 Malignant neoplasm of pyloric antrum; I50.32 Chronic diastolic (congestive) heart failure; E87.0 Hyperosmolality and hypernatremia; R18.0 Malignant ascites; C78.4 Secondary malignant neoplasm of small intestine; C78.89 Secondary malignant neoplasm of other digestive organs; E87.3 Alkalosis; E11.21 Type 2 diabetes mellitus with diabetic nephropathy; E11.65 Type 2 diabetes mellitus with hyperglycemia; I11.0 Hypertensive heart disease with heart failure; E78.2 Mixed hyperlipidemia; E86.0 Dehydration; K21.0 Gastro-esophageal reflux disease with esophagitis; K59.00 Constipation, unspecified; M19.90 Unspecified osteoarthritis, unspecified site; M10.9 Gout, unspecified; G47.33 Obstructive sleep apnea (adult) (pediatric); N40.0 Benign prostatic hyperplasia without lower urinary tract symptoms; M17.0 Bilateral primary osteoarthritis of knee; E66.01 Morbid (severe) obesity due to excess calories; Z68.34 Body mass index [BMI] 34.0-34.9, adult; E55.9 Vitamin D deficiency, unspecified; G89.3 Neoplasm related pain (acute) (chronic); D63.0 Anemia in neoplastic disease; Z79.82 Long term (current) use of aspirin; Z79.4 Long term (current) use of insulin; Z79.899 Other long term (current) drug therapy; Z91.013 Allergy to seafood
CPT/HCPCS: 36415; 74000; 80048; 80053; 80061; 82550; 82553; 82962; 83036; 83690; 84484; 85025; 85027; 86850; 86900; 86901; 93005; 93010; 96361; 96374; 96375; 99285; G0378; J1644; J1815; J2270; J2405; J2765; J3490; J7030

== ENCOUNTER 2017-02-26 14:49 | Inpatient (IN) | payer MEDICARE, BC ==
--- NOTE | 2017-02-26 16:08 | ER Document Report ---
ED GI/ <MARY LUCIO - Last Filed: 02/27/17 00:58> - General Mode of Arrival: Ambulatory Information source: Patient TRAVEL OUTSIDE OF THE [place] IN LAST 30 DAYS: No <JOSE GREGORY - Last Filed: 02/27/17 07:34> - General Chief Complaint: Problem with Feeding Tube Stated Complaint: FEEDING TUBE MAINTENANCE Time Seen by Provider: 02/26/17 16:05 Notes: Patient is a 76-year-old male with gastric cancer who presents to the ER today for J-tube being clogged. Patient was just discharged from the hospital yesterday for nausea, vomiting. His family tried to feed him this morning and the feeding would not go through the tube. Gastric tube is patent as they are pulling fluid off of his stomach to help with his nausea and vomiting through the gastric tube and not as successful today. They state he has not had any food to the J-tube since 3 AM. (JOSE GREGORY) - Related Data Allergies/Adverse Reactions: Shellfish * Adverse Reaction (Mild, Verified 02/26/17 18:11) GOUT SHELLFOODS Adverse Reaction (Mild, Uncoded 02/26/17 18:11) GOUT Past Medical History - General Information source: Relative - Social History Smoking Status: Unknown if Ever Smoked Family History: None Patient has suicidal ideation: No Patient has homicidal ideation: No - Past Medical History Cardiac Medical History: Reports: Hx Congestive Heart Failure, Hx Hypercholesterolemia, Hx Hypertension Denies: Hx Coronary Artery Disease, Hx Heart Attack Pulmonary Medical History: Denies: Hx Asthma, Hx Bronchitis, Hx COPD, Hx Pneumonia Neurological Medical History: Denies: Hx Cerebrovascular Accident, Hx Seizures Endocrine Medical History: Reports: Hx Diabetes Mellitus Type 1, Hx Diabetes Mellitus Type 2 Renal/ Medical History: Reports: Hx Renal Insufficiency. Denies: Hx Peritoneal Dialysis GI Medical History: Denies: Hx Cirrhosis Musculoskeltal Medical History: Reports Hx Arthritis - Legs and arms Psychiatric Medical History: Denies: Hx Depression Past Surgical History: Reports: Hx Orthopedic Surgery - Left knee and left hip, Other - Recent GJ tube placement, Pleurx catheter in the abdomen - Immunizations Hx Diphtheria, Pertussis, Tetanus Vaccination: Yes <JOSE GREGORY - Last Filed: 02/27/17 07:34> Review of Systems - Review of Systems Constitutional: No symptoms reported EENT: No symptoms reported Cardiovascular: No symptoms reported Respiratory: No symptoms reported Gastrointestinal: See HPI Genitourinary: No symptoms reported Male Genitourinary: No symptoms reported Musculoskeletal: No symptoms reported Skin: No symptoms reported Hematologic/Lymphatic: No symptoms reported Neurological/Psychological: No symptoms reported <JOSE GREGORY - Last Filed: 02/27/17 07:34> Physical Exam <MARY LUCIO - Last Filed: 02/27/17 00:58> <JOSE GREGORY - Last Filed: 02/27/17 07:34> - Vital signs Vitals: Temp Pulse Resp BP Pulse Ox 98.7 F 77 18 120/45 L 99 02/26/17 15:00 02/26/17 15:00 02/26/17 15:00 02/26/17 15:00 02/26/17 15:00 - Notes Notes: PHYSICAL EXAMINATION: GENERAL: Chronically ill-appearing, weak appearing, but in no acute distress. HEAD: Atraumatic, normocephalic. EYES: Pupils equal round and reactive to light, extraocular movements intact, sclera anicteric, conjunctiva are normal. ENT: ear canals without erythema or foreign body, TMs pearly hassan with good bony landmarks, nares patent, oropharynx clear without exudates. Moist mucous membranes. NECK: Normal range of motion, supple without lymphadenopathy LUNGS: CTAB and equal. No wheezes rales or rhonchi. HEART: Regular rate and rhythm without murmurs ABDOMEN: Distended, G-tube in place, small amount of drainage around G-tube, J- tube cannot be flushed, otherwise soft, no tenderness. No guarding, no rebound BACK: no vertebral tenderness, normal ROM GI/: no CVA tenderness EXTREMITIES: Normal range of motion, no pitting edema. No cyanosis. NEUROLOGICAL: Cranial nerves grossly intact. Normal sensory/motor exams. PSYCH:flat affect SKIN: Warm, Dry, normal turgor, no rashes or lesions noted (JOSE GREGORY) Course - Laboratory Result Diagrams: 02/27/17 00:36 02/27/17 00:36 <MARY LUCIO - Last Filed: 02/27/17 00:58> - Laboratory Result Diagrams: 02/27/17 00:36 02/27/17 00:36 <JOSE GREGORY - Last Filed: 02/27/17 07:34> - Re-evaluation Re-evalutation: 02/26/17 21:33 I took over this patient at 7:00pm the patient with f lethargic Accu-Chek was done and his blood sugar was 30 patient was given 12.5 g of dextrose and IV started of D5 half-normal saline at 125. His next Accu-Chek was 57 his IV is running at 125 patient is alert and oriented states he feels much better after the dextrose. At this time I have not yet received a call back from the thoracic surgeon at [facility] I just put a call another call into [facility] referral direct and they will have the cardiac connection active person call me back and let me know what is going on with the thoracic surgeon. 02/27/17 00:58 Contacted was consulted he stated that the patient could not have a replacement J G-tube inserted at this time as it is too soon. He stated there would be no reason to transfer the patient to [facility]. Patient to be fed through his G-tube and patient follow-up in the clinic tomorrow. Family was informed of Dr. Payton's decision stated the patient cannot be tested the G- tube because he vomits if he gets anything through the G-tube and G-tube is not drained every 6 hours of [address] Deras contacted of the thoracic surgeons decision. Informed Dr. Deras that the patient was hypoglycemic while in the emergency room and needed dextrose for blood sugar of 30 and is now running a IV of D5 half-normal saline at 125 to keep his sugar stable. Dr. Deras stated that the patient would need to be admitted to Dr. Mon who is patient's primary care doctor and that Dr. Deras and Dr. Mon will have to consult tomorrow and on his plan of care. Dr. Mon was consulted and the patient was admitted observation to Dr. Dr. Mon. Family has been informed throughout the evening of what is going on and that we were waiting for the thoracic surgeon to return call. When we did get a call from the thoracic surgery and we informed patient of a need to call gave him an Amna. After the doctors were called patient and family were informed at the patient will be admitted. (MARY LUCIO) 02/26/17 17:55 Interventional radiology did take the patient and attempted multiple maneuvers to get J-tube unclogged. All were unsuccessful.Patient had J-tube placed by thoracic surgeon at [facility], I have placed a call and I am awaiting callback. Oncologist, Dr. Deras also knows and agrees with this plan. Daughter states pt is starting to get sweaty and is not acting himself at this time, wanting to urinate but can't, I have ordered an EKG and an accucheck as pt is a diabetic and hasn't had any food through j tube since 3am this morning. I have asked the nurse to go right now to get these tests done, she's on her way in the room. JUAN Nunn is taking over care at this time. 02/27/17 07:30 (JOSE GREGORY) - Vital Signs Vital signs: Temp Pulse Resp BP Pulse Ox 98 F 69 18 143/51 H 100 02/27/17 02:01 02/27/17 02:01 02/27/17 02:01 02/27/17 02:01 02/27/17 02:01 - Laboratory Laboratory results interpreted by me: 02/26/17 02/26/17 02/27/17 20:25 21:32 00:36 WBC 11.2 H RBC 3.21 L Hgb 8.8 L Hct 28.8 L MCHC 30.4 L RDW 17.6 H Lymphocytes % 12.7 L Absolute Neutrophils 8.6 H Sodium Chloride Carbon Dioxide BUN POC Glucose 53 L 65 L Calcium Alkaline Phosphatase Albumin 02/27/17 00:36 WBC RBC Hgb Hct MCHC RDW Lymphocytes % Absolute Neutrophils Sodium 145.9 H Chloride 88 L Carbon Dioxide 48 H* BUN 41 H POC Glucose Calcium 8.0 L Alkaline Phosphatase 417 H Albumin 2.6 L Discharge - Discharge Admitting Provider: amna Unit Admitted: Medical Floor <MARY LUCIO - Last Filed: 02/27/17 00:58> <JOSE GREGORY - Last Filed: 02/27/17 07:34> - Discharge Clinical Impression: Hypoglycemia, Hx of esophageal malignancy, clogged j tube Nausea & vomiting Qualifiers: Vomiting type: unspecified Vomiting Intractability: non-intractable Qualified Code(s): R11.2 - Nausea with vomiting, unspecified Condition: Stable Disposition: ADMITTED OBSERVATION
[2017-02-26] MEDS ORDERED: NORMAL SALINE 1000 ML 250 ML IV ONE (17:48)
[2017-02-26] MEDS ORDERED: NORMAL SALINE 1000 ML 1,000 ML IV PRN (19:03)
[2017-02-26] MEDS ORDERED: DEXTROSE 50%-WATER 25 GM/50 ML DISP.SYRIN IV ONE ×2 (19:18→19:20)
[2017-02-26] MEDS ORDERED: DEXTROSE 5%-1/2 NORMAL SALINE 1,000 ML IV PRN (19:19)
[2017-02-26] MEDS ORDERED: DEXTROSE 5%-NORMAL SALINE 1,000 ML IV ONE (23:36)
[2017-02-27] MEDS ORDERED: PROMETHAZINE HCL 25 MG SUPP.RECT PR PRN (00:35)
[2017-02-27] MEDS ORDERED: DEXTROSE 40% GEL 15 GM TUBE PO PRN (00:36)
[2017-02-27] MEDS ORDERED: DEXTROSE 50%-WATER SYRINGE 25 GM/50 ML DOSE IV PRN (00:36)
[2017-02-27] MEDS ORDERED: DEXTROSE 40% GEL 15 GM TUBE X 2 PO PRN (00:36)
[2017-02-27] MEDS ORDERED: GLUCAGON,HUMAN RECOMB 1 MG INJ IM PRN (00:36)
[2017-02-27] MEDS ORDERED: DEXTROSE 50%-WATER SYRINGE 12.5 GM/25 ML DOSE IV PRN (00:36)
[2017-02-27] MEDS ORDERED: FENTANYL 25 MCG/HR PATCH.TD72 TD ONE (00:45)
[2017-02-27 00:48] LABS: ABSOLUTE BASOPHILS # (AUTO) 0.1 10^3/uL (0.0-0.2); ABSOLUTE LYMPHOCYTES (AUTO) 1.4 10^3/uL (0.5-4.7); ABSOLUTE MONOCYTES (AUTO) 1.1 10^3/uL (0.1-1.4); ABSOLUTE NEUT (AUTO) 8.6 10^3/uL (1.7-8.2); BASOPHILS % (AUTO) 0.5 % (0-2); EOSINOPHILS % (AUTO) 0.3 % (0-6); HEMATOCRIT 28.8 % (37.9-51.0); HEMOGLOBIN 8.8 g/dL (13.5-17.0); HGB HCT DIFFERENCE -2.4; LYMPHOCYTES % (AUTO) 12.7 % (13-45); MEAN CORPUSCULAR HEMOGLOBIN 27.3 pg (27.0-33.4); MEAN CORPUSCULAR HGB CONC 30.4 g/dL (32.0-36.0); MEAN CORPUSCULAR VOLUME 90 fl (80-97); MONOCYTES % (AUTO) 10.2 % (3-13); RED BLOOD COUNT 3.21 10^6/uL (4.35-5.55); RED CELL DISTRIBUTION WIDTH 17.6 % (11.5-14.0); SEGMENTED NEUTROPHILS % (AUTO) 76.3 % (42-78); WHITE BLOOD COUNT 11.2 10^3/uL (4.0-10.5)
[2017-02-27 01:03] LABS: ALANINE AMINOTRANSFERASE 27 U/L (21-72); ALBUMIN 2.6 g/dL (3.5-5.0); ALKALINE PHOSPHATASE 417 U/L (38-126); ASPARTATE AMINO TRANSFERASE 42 U/L (17-59); BILIRUBIN,DIRECT 0.4 mg/dL (0.0-0.4); BILIRUBIN,TOTAL 0.6 mg/dL (0.2-1.3); BLOOD UREA NITROGEN 41 mg/dL (7-20); CHLORIDE 88 mmol/L (98-107); CREATININE RESULT 1.17 mg/dL (0.52-1.25); GLUCOSE 77 mg/dL (75-110); POTASSIUM 3.7 mmol/L (3.6-5.0); SODIUM 145.9 mmol/L (137-145); TOTAL PROTEIN 6.3 g/dL (6.3-8.2)
[2017-02-27] MEDS: DEXTROSE 5%-NORMAL SALINE 1,000 ML IV PRN ×2 (01:21→12:27)
[2017-02-27 01:34] LABS: ANION GAP 10 (5-19)
[2017-02-27 01:39] LABS: CARBON DIOXIDE 48 mmol/L (22-30)
[2017-02-27] MEDS: ONDANSETRON HCL INJ/PF 4 MG/2 ML SDV IV PRN ×2 (06:28→14:03)
--- NOTE | 2017-02-27 08:03 | PDOC CONSULTATION ---
Consultation Consult Date: 02/27/17 Attending physician:: JESSEE LEAHY Consult reason:: N/V, j tube blockage, stage IV gastric ca History of Present Illness Admission Date/PCP: 02/27/17 00:40 JESSEE LEAHY Patient complains of: N/V, jtube blockage History of Present Illness: JASMIN ELLSWORTH is a 76 year old male monitoring with known history of stage IV gastric cancer, he has multiple sites of disease including malignant ascites , he has gastric outlet obstruction. He has been up to [place], there, they have placed a GJ tube, Pleurx catheter in the abdomen for ascites removal. He was just admitted about 2 days ago, at that time we had a regimen where we were removing about 3-400 cc from the gastric tube 4 times a day, he was getting feeding through the J-tube, and he was having Pleurx drainage of ascites. Unfortunately, the ascites drainage has dropped off considerably. Yesterday only 75 cc was able to be drained. Yesterday morning the J-tube stopped working , he was brought to the ED, interventional radiology attempted multiple procedures to unclog the J-tube including soda, wire removal, and other techniques that could be done here. Unfortunately could not be unclogged. We discussed his case with surgery in [place] who did the original procedure, they did not feel that he could have anything else to offer there, therefore he was admitted here. Today had a long discussion with Hoang, his daughter about the condition. Past Medical History Cardiac Medical History: Reports: Congestive Heart Failure, Hyperlipidema, Hypertension Denies: Coronary Artery Disease, Myocardial Infarction Pulmonary Medical History: Denies: Asthma, Bronchitis, Chronic Obstructive Pulmonary Disease (COPD), Pneumonia Neurological Medical History: Denies: Seizures Endocrine Medical History: Reports: Diabetes Mellitus Type 1, Diabetes Mellitus Type 2 Malignancy Medical History: Reports: Other - Stage IV gastric cancer GI Medical History: Denies: Cirrhosis Musculoskeltal Medical History: Reports: Arthritis - Legs and arms Psychiatric Medical History: Denies: Depression Hematology: Denies: Anemia Past Surgical History Past Surgical History: Reports: Orthopedic Surgery - Left knee and left hip, Other - Recent GJ tube placement, Pleurx catheter in the abdomen Social History Information Source: Patient Smoking Status: Unknown if Ever Smoked Frequency of Alcohol Use: None Hx Recreational Drug Use: No Drugs: None Hx Prescription Drug Abuse: No - Advance Directive Resuscitation Status: Full Code Family History Family History: None Parental Family History Reviewed: Yes Children Family History Reviewed: Yes Sibling(s) Family History Reviewed.: Yes Medication/Allergy Home Medications: Allopurinol [Zyloprim 100 mg Tablet] 100 mg PO DAILY 02/21/17 Aspirin [Aspirin 81 mg Chewable Tablet] 81 mg PO DAILY 02/21/17 Atorvastatin Calcium [Lipitor 40 mg Tablet] 40 mg PO QHS 02/21/17 Carvedilol [Coreg 25 mg Tablet] 25 mg PO Q12 02/21/17 Fentanyl [Duragesic 12 Mcg/Hr Transdermal Patch] 12 mcg TOP Q3D@1000 02/21/17 Hydralazine HCl [Apresoline 50 mg Tablet] 50 mg PO Q12 02/21/17 Metoclopramide HCl [Reglan] 5 mg PO Q6HP PRN 02/21/17 Omeprazole 20 mg PO DAILY 02/21/17 Ondansetron [Zofran Odt 4 mg Tablet] 4 mg PO Q4HP PRN 02/21/17 Oxycodone HCl 5 mg PO Q4HP PRN 02/21/17 Promethazine HCl [Phenergan 25 mg Supp.rect] 1 supp [place] Q4HP PRN 02/21/17 Terazosin HCl [Hytrin] 5 mg PO DAILY 02/21/17 Insulin Detemir [Levemir Flextouch] 30 units SQ QAM #0 02/25/17 Levofloxacin [Levaquin 500 mg Tablet] 500 mg PO DAILY 02/25/17 Morphine Sulfate [Roxanol] 5 mg PO Q4H PRN #30 ml 02/25/17 Allergies/Adverse Reactions: Shellfish * Adverse Reaction (Mild, Verified 02/26/17 18:11) GOUT SHELLFOODS Adverse Reaction (Mild, Uncoded 02/26/17 18:11) GOUT Review of Systems Constitutional: PRESENT: anorexia, weakness Gastrointestinal: PRESENT: abdominal pain, bloating, dysphagia, nausea, vomiting Musculoskeletal: PRESENT: back pain Neurological: ABSENT: abnormal gait, abnormal speech, confusion, dizziness, focal weakness, syncope Physical Exam Vital Signs: Temp Pulse Resp BP Pulse Ox 98 F 86 18 143/51 H 100 02/27/17 02:01 02/27/17 07:48 02/27/17 02:01 02/27/17 02:02/27/17 02:01 Intake & Output 02/26/17 02/27/17 02/28/17 06:59 06:59 06:59 Weight 83 kg General appearance: PRESENT: no acute distress, well-developed, well-nourished Head exam: PRESENT: atraumatic, normocephalic Eye exam: PRESENT: conjunctiva pink, EOMI, PERRLA. ABSENT: scleral icterus Ear exam: PRESENT: normal external ear exam Mouth exam: PRESENT: moist, tongue midline Neck exam: ABSENT: carotid bruit, JVD, lymphadenopathy, thyromegaly Respiratory exam: PRESENT: clear to auscultation chris. ABSENT: rales, rhonchi, wheezes Cardiovascular exam: PRESENT: RRR. ABSENT: diastolic murmur, rubs, systolic murmur Pulses: PRESENT: normal dorsalis pedis pul Vascular exam: PRESENT: normal capillary refill GI/Abdominal exam: PRESENT: normal bowel sounds, soft. ABSENT: distended, guarding, mass, organolmegaly, rebound, tenderness Rectal exam: PRESENT: deferred Extremities exam: PRESENT: full ROM. ABSENT: calf tenderness, clubbing, pedal edema Neurological exam: PRESENT: alert, awake, oriented to person, oriented to place , oriented to time, oriented to situation, CN II-XII grossly intact. ABSENT: motor sensory deficit Psychiatric exam: PRESENT: appropriate affect, normal mood. ABSENT: homicidal ideation, suicidal ideation Skin exam: PRESENT: dry, intact, warm. ABSENT: cyanosis, rash Assessment & Plan - Diagnosis (1) Gastric outlet obstruction Is this a current diagnosis for this admission?: YesPlan: Secondary tumor compression as well as ascites. I believe this is what is compressing the J-tube. It either going to be tumor compression or another pocket of ascites compressing that area. It may be that the Pleurx catheter currently is in a pocket of ascites that is been fully drained. Thus we may believe that the ascites is loculated. We will get CT of the abdomen pelvis to see if that can delineate this further. I will initiate the protocol that we had before where we are removing gastric contents 4 times a day, attempting full removal of ascites fluid from the Pleurx catheter. We will give another 24 hours and then consider next steps of care based on this. (2) Nausea & vomiting Qualifiers: Vomiting type: unspecified Vomiting Intractability: intractable Qualified Code(s): R11.2 - Nausea with vomiting, unspecified Plan: Intractable nausea vomiting secondary to gastric obstruction, we will change Phenergan suppository to Compazine IV, hopefully we can get that, continue Zofran IV as well. 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 I have told this to the patient and family before. They do understand the grave situation. We will get the CT and then have a family meeting this evening and then discuss the case further. (4) Pain, neoplasm-related Is this a current diagnosis for this admission?: YesPlan: Continue with fentanyl patch as well as morphine IV. - Time Time Spent: Greater than 70 Minutes Critical Time spent with patient: 35 or more minutes - Inpatient Certification Based on my medical assessment, after consideration of the patient's comorbidities, presenting symptoms, or acuity I expect that the services needed warrant INPATIENT care.: Yes I certify that my determination is in accordance with my understanding of Medicare's requirements for reasonable and necessary INPATIENT services [42 CFR 412.3e].: Yes Medical Necessity: Failure to Improve With Outpatient Therapy, Need For IV Fluids, Need for Pain Control
[2017-02-27] MEDS ORDERED: PROCHLORPERAZINE EDISYLATE INJ 10 MG/2 ML VIAL IV PRN (09:04)
[2017-02-27] MEDS: ENOXAPARIN SODIUM INJ 40 MG/0.4 ML DISP.SYRIN SUBCUT SCH (09:59)
[2017-02-27] MEDS ORDERED: FENTANYL 25 MCG/HR PATCH.TD72 TD SCH (10:00)
--- NOTE | 2017-02-27 10:03 | RADIOLOGY REPORT (SQ) ---
EXAM DESCRIPTION: INTRO/GI TUBE W/FLUORO COMPLETED DATE/TIME: 02/26/2017 5:50 pm REASON FOR STUDY: clogged j tube COMPARISON: None. FLUOROSCOPY TIME: 3 minutes 16 seconds of fluoro was used 1 images saved to PACS. TECHNIQUE: Injection of contrast and wire manipulation through existing catheter. Fluoroscopic spot films saved to PACS. LIMITATIONS: None. FINDINGS: CONTRAST INJECTED: 3 ml Isovue 300 GJ TUBE POSITION: G-tube is in proper position. J-tube portion of the tube extends into the third p ortion of the duodenum. An attempt to flush the J-tube with saline and contrast was unsuccessful. M ulsofia attempts at passing a wire through the tube was also unsuccessful. The tube is blocked appro ximately 10 cm from distal tip. IMPRESSION: UNSUCCESSFUL ATTEMPT TO UNBLOCK JEJUNOSTOMY TUBE.. COMMENT: Quality ID [id number]: Final reports for procedures using fluoroscopy that document radiation exp osure indices, or exposure time and number of fluorographic images (if radiation exposure indices are not available) TECHNICAL DOCUMENTATION: JOB ID: [id number] [employer]- All Rights Reserved
--- NOTE | 2017-02-27 10:27 | PDOC H&P ---
History of Present Illness Admission Date/PCP: 02/27/17 00:40 JESSEE LEAHY Patient complains of: Blockage of J-tube possibly due to tumor compression or ascites with consequent hypoglycemia due to inability to feed him due to the blockage. History of Present Illness: 76 yr old man with hx of DM2/HTN/Hyperlipidemia/CHF/CKD stage3/DELVIS on CPAP/GERD/ BPH/Constipation/Vitamin D def/Gout, who was recently diagnosed with stage 4 4 gastric cancer and had Jtube for feeding; G tube for drainage of gastric content and Pleurx for ascitic drainage. He was discharged from [facility] on 2016 for intractable vomiting, acute kidney injury and metabolic alkalosis. The J tube was siad to have stopped working yesterday and was blocked and he became hypoglycemic due to inability to feed him. He was brought to ER and attempts to declog the J-tube by interventional radiologist failed and the Dr Tata abdullahi in [place] declined to take him him back insisting that it will be futile and that patient should be considered for palliative care. Past Medical History Cardiac Medical History: Reports: Congestive Heart Failure, Hyperlipidema, Hypertension Denies: Coronary Artery Disease, Myocardial Infarction Pulmonary Medical History: Denies: Asthma, Bronchitis, Chronic Obstructive Pulmonary Disease (COPD), Pneumonia Neurological Medical History: Denies: Seizures Endocrine Medical History: Reports: Diabetes Mellitus Type 1, Diabetes Mellitus Type 2 Malignancy Medical History: Reports: Other - Stage IV gastric cancer GI Medical History: Denies: Cirrhosis Musculoskeltal Medical History: Reports: Arthritis - Legs and arms Psychiatric Medical History: Denies: Depression Hematology: Denies: Anemia Past Surgical History Past Surgical History: Reports: Orthopedic Surgery - Left knee and left hip, Other - Recent GJ tube placement, Pleurx catheter in the abdomen Social History Smoking Status: Unknown if Ever Smoked Frequency of Alcohol Use: None Hx Recreational Drug Use: No Drugs: None Hx Prescription Drug Abuse: No - Advance Directive Resuscitation Status: Full Code Family History Family History: None Parental Family History Reviewed: Yes Children Family History Reviewed: Yes Sibling(s) Family History Reviewed.: Yes Medication/Allergy Home Medications: Allopurinol [Zyloprim 100 mg Tablet] 100 mg PO DAILY 02/21/17 Aspirin [Aspirin 81 mg Chewable Tablet] 81 mg PO DAILY 02/21/17 Atorvastatin Calcium [Lipitor 40 mg Tablet] 40 mg PO QHS 02/21/17 Carvedilol [Coreg 25 mg Tablet] 25 mg PO Q12 02/21/17 Fentanyl [Duragesic 12 Mcg/Hr Transdermal Patch] 12 mcg TOP Q3D@1000 02/21/17 Hydralazine HCl [Apresoline 50 mg Tablet] 50 mg PO Q12 02/21/17 Metoclopramide HCl [Reglan] 5 mg PO Q6HP PRN 02/21/17 Omeprazole 20 mg PO DAILY 02/21/17 Ondansetron [Zofran Odt 4 mg Tablet] 4 mg PO Q4HP PRN 02/21/17 Oxycodone HCl 5 mg PO Q4HP PRN 02/21/17 Promethazine HCl [Phenergan 25 mg Supp.rect] 1 supp [place] Q4HP PRN 02/21/17 Terazosin HCl [Hytrin] 5 mg PO DAILY 02/21/17 Insulin Detemir [Levemir Flextouch] 30 units SQ QAM #0 02/25/17 Levofloxacin [Levaquin 500 mg Tablet] 500 mg PO DAILY 02/25/17 Morphine Sulfate [Roxanol] 5 mg PO Q4H PRN #30 ml 02/25/17 Allergies/Adverse Reactions: Shellfish * Adverse Reaction (Mild, Verified 02/26/17 18:11) GOUT SHELLFOODS Adverse Reaction (Mild, Uncoded 02/26/17 18:11) GOUT Review of Systems All systems: as per PMH Constitutional: PRESENT: as per HPI, weakness Eyes: PRESENT: as per HPI Ears: PRESENT: as per HPI Nose, Mouth, and Throat: PRESENT: as per HPI Cardiovascular: PRESENT: as per HPI Respiratory: PRESENT: as per HPI Gastrointestinal: PRESENT: abdominal pain, nausea, vomiting Genitourinary: PRESENT: as per HPI Integumentary: PRESENT: as per HPI Neurological: PRESENT: as per HPI Psychiatric: PRESENT: as per HPI Endocrine: PRESENT: as per HPI Hematologic/Lymphatic: PRESENT: as per HPI Allergic/Immunologic: PRESENT: as per HPI Physical Exam Vital Signs: Temp Pulse Resp BP Pulse Ox 98.3 F 86 18 125/41 L 92 02/27/17 07:24 02/27/17 07:48 02/27/17 07:24 02/27/17 07:24 02/27/17 07:24 Intake & Output 02/26/17 02/27/17 02/28/17 06:59 06:59 06:59 Weight 83 kg General appearance: PRESENT: no acute distress, cooperative, morbidly obese, well-nourished Head exam: PRESENT: atraumatic, normocephalic Eye exam: PRESENT: EOMI, PERRLA Ear exam: PRESENT: normal external ear exam Mouth exam: PRESENT: neck supple, tongue midline Respiratory exam: PRESENT: clear to auscultation chris, symmetrical Cardiovascular exam: PRESENT: +S1, +S2 Pulses: PRESENT: +2 pedal pulses bilateral GI/Abdominal exam: PRESENT: ascites, mass, normal bowel sounds, tenderness Rectal exam: PRESENT: deferred Neurological exam: PRESENT: alert, awake, oriented to person, oriented to place , oriented to time Psychiatric exam: PRESENT: anxious, depressed Results Impressions: Guidance Fluoroscopy 02/26/17 16:54 IMPRESSION: UNSUCCESSFUL ATTEMPT TO UNBLOCK JEJUNOSTOMY TUBE.. Assessment & Plan - Diagnosis (1) Gastric outlet obstruction Is this a current diagnosis for this admission?: YesPlan: Ct with IV fluids 5% Dextrose in normal saline at 125 cc/hr; NPO; F/u CT abdomen /pelvis.F/u Dr Deras. (2) Hypoglycemia Is this a current diagnosis for this admission?: YesPlan: Ct with IV fluds 5% Dextrose in normal saline at 125 cc/hr; accucheck q4h with slidding scale with humalog insulin [facility] protocol (3) Intractable vomiting with nausea Qualifiers: Vomiting type: unspecified Qualified Code(s): R11.2 - Nausea with vomiting, unspecified Is this a current diagnosis for this admission?: YesPlan: Ct with IV fluids ; Zofran 4 mg q4h IV prn; Compazine 10 mg q4h IV prn (4) Gastric cancer Qualifiers: Malignant neoplasm of stomach location: pyloric antrum Qualified Code(s): C16.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 (6) Reflux esophagitis Is this a current diagnosis for this admission?: YesPlan: Ct with Protonix 40 mg qd IV (7) DVT prophylaxis Is this a current diagnosis for this admission?: YesPlan: Ct with Lovenox 40 mg qd subcut; SCD. - Time Time Spent: 30 to 50 Minutes Medications reviewed and adjusted accordingly: Yes Anticipated discharge: Home Within: within 72 hours - Inpatient Certification Medical Necessity: Failure to Improve With Outpatient Therapy, Significant Comorbidiites Make Outpatient Treatment Too Risky, Need Close Monitoring Due to Risk of Patient Decompensation, Need For IV Fluids, Need for Pain Control, Risk of Complication if Not Cared For in Hospital
--- NOTE | 2017-02-27 11:50 | RADIOLOGY REPORT (SQ) ---
EXAM DESCRIPTION: CT ABD/PELVIS WITH IV ONLY COMPLETED DATE/TIME: 02/27/2017 10:26 am REASON FOR STUDY: H/O GASTRIC CA COMPARISON: 02/19/2017 TECHNIQUE: CT scan of the abdomen and pelvis performed using helical scanning technique with dynamic intravenous contrast injection. No oral contrast. Images reviewed with lung, soft tissue, and bone windows. Reconstructed coronal and sagittal MPR images reviewed. Delayed images for evaluation of the urinary system also acquired. All images stored on PACS. All CT scanners at this facility use dose modulation, iterative reconstruction, and/or weight based d osing when appropriate to reduce radiation dose to as low as reasonably achievable (ALARA). [facility]: Dose Right [facility]: CareDose [facility]: Dose Right [facility]: Teradose 4D [facility]: Immunetrics CONTRAST TYPE AND DOSE: contrast/concentration: Isovue 370.00 mg/ml; Total Contrast Delivered: 95.0 ml; Total Saline Delivered: 71.0 ml RENAL FUNCTION: Creatinine 1.17 RADIATION DOSE: Up-to-date CT equipment and radiation dose reduction techniques were employed. CTDIv ol: 14.4 - 15.6 mGy. DLP: 1491 mGy-cm.. LIMITATIONS: Pelvic images are limited somewhat due to artifact related to a left hip prosthesis. FINDINGS: LOWER CHEST: Small bilateral pleural effusions are again identified with associated airspa ce consolidation which could represent atelectatic changes or pneumonic consolidation. LIVER: Normal size. No masses. No dilated ducts. SPLEEN: Normal size. The previously described focal thick-walled rim enhancing lesion in the spleen is again identified and appears unchanged. Differential possibilities are as previously stated PANCREAS: No masses. No significant calcifications. No adjacent inflammation or peripancreatic fluid collections. Pancreatic duct not dilated. GALLBLADDER: No identified stones by CT criteria. No inflammatory changes to suggest cholecystitis. ADRENAL GLANDS: No significant masses or asymmetry. RIGHT KIDNEY AND URETER: No solid masses. No significant calcifications. No hydronephrosis or hyd roureter. LEFT KIDNEY AND URETER: No solid masses. No significant calcifications. No hydronephrosis or hydr oureter. AORTA AND VESSELS: No aneurysm. No dissection. Renal arteries, SMA, celiac without stenosis. RETROPERITONEUM: No retroperitoneal adenopathy, hemorrhage or masses. BOWEL AND PERITONEAL CAVITY: The previously described thickening of the gastric antrum appears unchan ged. Again the patient has a known gastric antral tumor. Fluid filled proximal stomach is identifie d which is slightly more pronounced as compared to the previous study. Previously described catheter s are unchanged in position. The previously described areas of mesenteric studding appear unchanged. The previously described intra-abdominal ascitic fluid appears unchanged APPENDIX: Not identified PELVIS: No mass. No free fluid. Normal bladder. ABDOMINAL WALL: No masses. No hernias. BONES: No significant or acute findings. OTHER: No other significant finding. IMPRESSION: No significant interval changes compared to the previous study. Findings as noted above TECHNICAL DOCUMENTATION: JOB ID: [id number] Quality ID # [id number]: Final reports with documentation of one or more dose reduction techniques (e.g., Au tomated exposure control, adjustment of the mA and/or kV according to patient size, use of iterative reconstruction technique) 2010 [employer]- All Rights Reserved
[2017-02-27] MEDS: PANTOPRAZOLE SODIUM 40 MG VIAL IV SCH (12:27)
[2017-02-27] MEDS: INSULIN LISPRO 100 UNIT/ML 3 ML VIAL SUBCUT PRN (22:01)
[2017-02-27] MEDS: MORPHINE SULFATE 10 MG/ML INJ IV PRN (22:19)
[2017-02-28] MEDS: DEXTROSE 5%-NORMAL SALINE 1,000 ML IV PRN ×3 (03:52→19:47)
[2017-02-28 05:22] LABS: ABSOLUTE BASOPHILS # (AUTO) 0.1 10^3/uL (0.0-0.2); ABSOLUTE EOSINOPHILS # (AUTO) 0.2 10^3/uL (0.0-0.6); ABSOLUTE LYMPHOCYTES (AUTO) 1.4 10^3/uL (0.5-4.7); ABSOLUTE MONOCYTES (AUTO) 1.3 10^3/uL (0.1-1.4); BASOPHILS % (AUTO) 0.8 % (0-2); EOSINOPHILS % (AUTO) 2.4 % (0-6); HEMOGLOBIN 8.7 g/dL (13.5-17.0); HGB HCT DIFFERENCE -2.9; LYMPHOCYTES % (AUTO) 15.7 % (13-45); MEAN CORPUSCULAR HEMOGLOBIN 27.1 pg (27.0-33.4); MEAN CORPUSCULAR HGB CONC 29.9 g/dL (32.0-36.0); MEAN CORPUSCULAR VOLUME 91 fl (80-97); MONOCYTES % (AUTO) 14.8 % (3-13); RED CELL DISTRIBUTION WIDTH 17.8 % (11.5-14.0); SEGMENTED NEUTROPHILS % (AUTO) 66.3 % (42-78); WHITE BLOOD COUNT 9.1 10^3/uL (4.0-10.5)
[2017-02-28 05:39] LABS: ALANINE AMINOTRANSFERASE 29 U/L (21-72); ALBUMIN 2.6 g/dL (3.5-5.0); ALKALINE PHOSPHATASE 419 U/L (38-126); ASPARTATE AMINO TRANSFERASE 45 U/L (17-59); BILIRUBIN,DIRECT 0.5 mg/dL (0.0-0.4); BILIRUBIN,TOTAL 0.7 mg/dL (0.2-1.3); BLOOD UREA NITROGEN 27 mg/dL (7-20); CALCIUM 8.2 mg/dL (8.4-10.2); CHLORIDE 96 mmol/L (98-107); CREATININE RESULT 1.13 mg/dL (0.52-1.25); GLUCOSE 174 mg/dL (75-110); SODIUM 145.2 mmol/L (137-145); TOTAL PROTEIN 6.5 g/dL (6.3-8.2)
[2017-02-28 05:47] LABS: ANION GAP 8 (5-19)
[2017-02-28 05:49] LABS: CARBON DIOXIDE 41 mmol/L (22-30)
--- NOTE | 2017-02-28 06:00 | EKG REPORT ---
SEVERITY:- ABNORMAL ECG - UNKNOWN RHYTHM, IRREGULAR RATE 66-99 LVH BY VOLTAGE BORDERLINE PROLONGED QT INTERVAL : Confirmed by: Chitra Campoverde MD 28-Feb-2017 05:59:05
[2017-02-28] MEDS: MORPHINE SULFATE 10 MG/ML INJ IV PRN (06:22)
--- NOTE | 2017-02-28 08:11 | PDOC PROGRESS REPORT ---
Subjective Progress Note for:: 02/28/17 Subjective:: Yesterday we had a long discussion with family, we reviewed the images with radiology, unfortunately he has full gastric outlet obstruction, the J-tube is being compressed by that obstruction, and there is nothing more we can do with it. So I went over the grave status, I went over life expectancy as well as next steps of care, we spent about 45 minutes in discussion. After long discussion with patient and family agreed to DNR as well as hospice. We will get that started for him today morning. Physical Exam Vital Signs: Temp Pulse Resp BP Pulse Ox 97.6 F 81 14 137/51 H 92 02/28/17 04:13 02/28/17 04:13 02/28/17 04:13 02/28/17 04:13 02/28/17 04:13 Intake & Output 02/27/17 02/28/17 03/01/17 06:59 06:59 06:59 Intake Total 3000 Output Total 580 Balance 2420 Weight 83 kg General appearance: PRESENT: no acute distress, well-developed, well-nourished Head exam: PRESENT: atraumatic, normocephalic Eye exam: PRESENT: conjunctiva pink, EOMI, PERRLA. ABSENT: scleral icterus Ear exam: PRESENT: normal external ear exam Mouth exam: PRESENT: moist, tongue midline Neck exam: ABSENT: carotid bruit, JVD, lymphadenopathy, thyromegaly Respiratory exam: PRESENT: clear to auscultation chris. ABSENT: rales, rhonchi, wheezes Cardiovascular exam: PRESENT: RRR. ABSENT: diastolic murmur, rubs, systolic murmur Pulses: PRESENT: normal dorsalis pedis pul Vascular exam: PRESENT: normal capillary refill GI/Abdominal exam: PRESENT: normal bowel sounds, soft. ABSENT: distended, guarding, mass, organolmegaly, rebound, tenderness Rectal exam: PRESENT: deferred Extremities exam: PRESENT: full ROM. ABSENT: calf tenderness, clubbing, pedal edema Neurological exam: PRESENT: alert, awake, oriented to person, oriented to place , oriented to time, oriented to situation, CN II-XII grossly intact. ABSENT: motor sensory deficit Psychiatric exam: PRESENT: appropriate affect, normal mood. ABSENT: homicidal ideation, suicidal ideation Skin exam: PRESENT: dry, intact, warm. ABSENT: cyanosis, rash Results Laboratory Results: 02/28/17 04:31 02/28/17 04:31 02/28/17 02/28/17 04:31 04:31 WBC 9.1 RBC 3.20 L Hgb 8.7 L Hct 29.0 L MCV 91 MCH 27.1 MCHC 29.9 L RDW 17.8 H Plt Count 307 Seg Neutrophils % 66.3 Lymphocytes % 15.7 Monocytes % 14.8 H Eosinophils % 2.4 Basophils % 0.8 Absolute Neutrophils 6.0 Absolute Lymphocytes 1.4 Absolute Monocytes 1.3 Absolute Eosinophils 0.2 Absolute Basophils 0.1 Sodium 145.2 H Potassium 5.0 Chloride 96 L Carbon Dioxide 41 H* Anion Gap 8 BUN 27 H Creatinine 1.13 Est GFR ( Amer) > 60 Est GFR (Non-Af Amer) > 60 Glucose 174 H Calcium 8.2 L Total Bilirubin 0.7 AST 45 ALT 29 Alkaline Phosphatase 419 H Total Protein 6.5 Albumin 2.6 L Impressions: Guidance Fluoroscopy 02/26/17 16:54 IMPRESSION: UNSUCCESSFUL ATTEMPT TO UNBLOCK JEJUNOSTOMY TUBE.. Abdomen/Pelvis CT 02/27/17 00:00 IMPRESSION: No significant interval changes compared to the previous study. Findings as noted above Assessment & Plan - Diagnosis (1) Gastric outlet obstruction Is this a current diagnosis for this admission?: YesPlan: No further intervention possible, we will continue with gastric decompression for comfort. 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
[2017-02-28] MEDS: ENOXAPARIN SODIUM INJ 40 MG/0.4 ML DISP.SYRIN SUBCUT SCH (11:13)
[2017-02-28] MEDS: PANTOPRAZOLE SODIUM 40 MG VIAL IV SCH (11:14)
[2017-02-28] MEDS: INSULIN LISPRO 100 UNIT/ML 3 ML VIAL SUBCUT PRN ×2 (11:55→17:18)
--- NOTE | 2017-02-28 13:40 | PDOC PROGRESS REPORT ---
Subjective Progress Note for:: 02/28/17 Subjective:: Patient has not yet decided whether he will do hospice or not. Family is trying to get a second opinion from [facility]. Physical Exam Vital Signs: Temp Pulse Resp BP Pulse Ox 98.0 F 79 16 178/76 H 100 02/28/17 11:56 02/28/17 11:56 02/28/17 11:56 02/28/17 11:56 02/28/17 11:56 Intake & Output 02/27/17 02/28/17 03/01/17 06:59 06:59 06:59 Intake Total 3000 Output Total 580 Balance 2420 Weight 83 kg General appearance: PRESENT: no acute distress Eye exam: PRESENT: conjunctiva pink. ABSENT: scleral icterus Mouth exam: PRESENT: moist, tongue midline Neck exam: ABSENT: JVD Respiratory exam: PRESENT: clear to auscultation chris. ABSENT: rales, rhonchi, wheezes Cardiovascular exam: PRESENT: RRR. ABSENT: diastolic murmur, rubs, systolic murmur GI/Abdominal exam: PRESENT: normal bowel sounds, soft, other - Patient has a Pleurx catheter in the left lower abdomen.. ABSENT: distended, guarding, mass, organolmegaly, rebound, tenderness Extremities exam: ABSENT: calf tenderness, clubbing, pedal edema Neurological exam: PRESENT: alert, awake, oriented to person, oriented to place , oriented to time, oriented to situation, CN II-XII grossly intact. ABSENT: motor sensory deficit Psychiatric exam: PRESENT: appropriate affect Skin exam: PRESENT: dry, intact, warm, other - Mild erythema around the Pleurx catheter in the left lower abdomen. ABSENT: cyanosis, rash Results Laboratory Results: 02/28/17 04:31 02/28/17 04:31 02/28/17 02/28/17 04:31 04:31 WBC 9.1 RBC 3.20 L Hgb 8.7 L Hct 29.0 L MCV 91 MCH 27.1 MCHC 29.9 L RDW 17.8 H Plt Count 307 Seg Neutrophils % 66.3 Lymphocytes % 15.7 Monocytes % 14.8 H Eosinophils % 2.4 Basophils % 0.8 Absolute Neutrophils 6.0 Absolute Lymphocytes 1.4 Absolute Monocytes 1.3 Absolute Eosinophils 0.2 Absolute Basophils 0.1 Sodium 145.2 H Potassium 5.0 Chloride 96 L Carbon Dioxide 41 H* Anion Gap 8 BUN 27 H Creatinine 1.13 Est GFR ( Amer) > 60 Est GFR (Non-Af Amer) > 60 Glucose 174 H Calcium 8.2 L Total Bilirubin 0.7 AST 45 ALT 29 Alkaline Phosphatase 419 H Total Protein 6.5 Albumin 2.6 L Impressions: Guidance Fluoroscopy 02/26/17 16:54 IMPRESSION: UNSUCCESSFUL ATTEMPT TO UNBLOCK JEJUNOSTOMY TUBE.. Abdomen/Pelvis CT 02/27/17 00:00 IMPRESSION: No significant interval changes compared to the previous study. 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 Oncology here is recommending hospice care. Patient's family wants to get a second opinion at [place]. Will hold off on discharge until this is obtained. Patient will continue with IV fluids. (3) Sleep apnea, obstructive Is this a current diagnosis for this admission?: Yes (4) Ascites Qualifiers: Ascites type: malignant Is this a current diagnosis for this admission?: YesPlan: Pleurx catheter placed and used to drain the fluid (5) Congestive heart failure Qualifiers: Congestive heart failure type: diastolic Congestive heart failure chronicity: chronic Qualified Code(s): I50.32 - Chronic diastolic ( congestive) heart failure Is this a current diagnosis for this admission?: YesPlan: Is euvolemic (6) Diabetes mellitus Qualifiers: Diabetes mellitus type: type 2 Is this a current diagnosis for this admission?: Yes (7) Hyperlipidemia Qualifiers: Hyperlipidemia type: mixed hyperlipidemia Qualified Code(s): E78.2 - Mixed hyperlipidemia Is this a current diagnosis for this admission?: Yes (8) Hypertension Qualifiers: Hypertension type: essential hypertension Qualified Code(s): I10 - Essential (primary) hypertension Is this a current diagnosis for this admission?: YesPlan: will restart his antihypertensives as he is not yet hospice - Time Time Spent with patient: 25-34 minutes - Inpatient Certification Medical Necessity: Need Close Monitoring Due to Risk of Patient Decompensation, Need For IV Fluids
[2017-02-28] MEDS ORDERED: METOCLOPRAMIDE HCL 10 MG TABLET PEG SCH (18:00)
[2017-02-28] MEDS ORDERED: ATORVASTATIN CALCIUM 40 MG TABLET PO SCH (22:00)
[2017-02-28] MEDS: CARVEDILOL 12.5 MG TABLET PEG SCH (22:51)
[2017-02-28] MEDS: HYDRALAZINE HCL 50 MG TABLET PEG SCH (22:52)
[2017-02-28] MEDS: ATORVASTATIN CALCIUM 40 MG TABLET PEG SCH (22:52)
[2017-03-01] MEDS: MORPHINE SULFATE 10 MG/ML INJ IV PRN ×2 (00:46→14:19)
[2017-03-01] MEDS: DEXTROSE 5%-NORMAL SALINE 1,000 ML IV PRN ×3 (03:30→19:51)
[2017-03-01 05:34] LABS: ABSOLUTE BASOPHILS # (AUTO) 0.1 10^3/uL (0.0-0.2); ABSOLUTE EOSINOPHILS # (AUTO) 0.2 10^3/uL (0.0-0.6); ABSOLUTE LYMPHOCYTES (AUTO) 1.5 10^3/uL (0.5-4.7); ABSOLUTE MONOCYTES (AUTO) 1.2 10^3/uL (0.1-1.4); ABSOLUTE NEUT (AUTO) 5.2 10^3/uL (1.7-8.2); BASOPHILS % (AUTO) 0.7 % (0-2); EOSINOPHILS % (AUTO) 2.8 % (0-6); HEMATOCRIT 27.6 % (37.9-51.0); HEMOGLOBIN 8.5 g/dL (13.5-17.0); HGB HCT DIFFERENCE -2.1; LYMPHOCYTES % (AUTO) 18.6 % (13-45); MEAN CORPUSCULAR HEMOGLOBIN 28.2 pg (27.0-33.4); MEAN CORPUSCULAR HGB CONC 30.9 g/dL (32.0-36.0); MEAN CORPUSCULAR VOLUME 91 fl (80-97); MONOCYTES % (AUTO) 14.3 % (3-13); RED BLOOD COUNT 3.02 10^6/uL (4.35-5.55); RED CELL DISTRIBUTION WIDTH 17.4 % (11.5-14.0); SEGMENTED NEUTROPHILS % (AUTO) 63.6 % (42-78); WHITE BLOOD COUNT 8.2 10^3/uL (4.0-10.5)
[2017-03-01 05:51] LABS: ANION GAP 6 (5-19); BLOOD UREA NITROGEN 15 mg/dL (7-20); CALCIUM 8.2 mg/dL (8.4-10.2); CARBON DIOXIDE 39 mmol/L (22-30); CHLORIDE 99 mmol/L (98-107); GLUCOSE 212 mg/dL (75-110); POTASSIUM 4.7 mmol/L (3.6-5.0); SODIUM 144.3 mmol/L (137-145)
[2017-03-01] MEDS ORDERED: LANSOPRAZOLE 15 MG TAB.RAP.DR PEG SCH (06:00)
[2017-03-01] MEDS: INSULIN LISPRO 100 UNIT/ML 3 ML VIAL SUBCUT PRN ×4 (07:01→23:37)
[2017-03-01] MEDS: ENOXAPARIN SODIUM INJ 40 MG/0.4 ML DISP.SYRIN SUBCUT SCH (09:27)
[2017-03-01] MEDS: CARVEDILOL 12.5 MG TABLET PEG SCH ×2 (09:29→22:55)
[2017-03-01] MEDS: HYDRALAZINE HCL 50 MG TABLET PEG SCH ×2 (09:30→22:55)
[2017-03-01] MEDS: ALLOPURINOL 100 MG TABLET PEG SCH (09:30)
[2017-03-01] MEDS: DOXAZOSIN MESYLATE 4 MG TABLET PEG SCH (09:31)
[2017-03-01] MEDS: LOSARTAN POTASSIUM 25 MG TABLET PEG SCH (09:31)
[2017-03-01] MEDS: PANTOPRAZOLE SODIUM 40 MG VIAL IV SCH (09:33)
[2017-03-01] MEDS ORDERED: (PENDING PHARMACY ID) (Terazosin Hcl [Hytrin] 5 MG) PO SCH (10:00)
[2017-03-01] MEDS ORDERED: ALLOPURINOL 100 MG TABLET PO SCH (10:00)
[2017-03-01] MEDS ORDERED: FINASTERIDE 5 MG TABLET PO SCH (10:00)
[2017-03-01] MEDS ORDERED: ISOSORBIDE MONONITRATE 30 MG TAB.ER.24H PO SCH (10:00)
--- NOTE | 2017-03-01 10:03 | PDOC PROGRESS REPORT ---
Subjective Progress Note for:: 03/01/17 Subjective:: States he is hungry and wants to try to eat. Physical Exam Vital Signs: Temp Pulse Resp BP Pulse Ox 98.1 F 70 18 152/54 H 97 03/01/17 07:48 03/01/17 07:48 03/01/17 07:48 03/01/17 07:48 03/01/17 07:48 Intake & Output 02/28/17 03/01/17 03/02/17 06:59 06:59 06:59 Intake Total 3200 Output Total 975 Balance 2225 General appearance: PRESENT: no acute distress Eye exam: PRESENT: conjunctiva pink. ABSENT: scleral icterus Mouth exam: PRESENT: moist, tongue midline Neck exam: ABSENT: carotid bruit, JVD, lymphadenopathy, thyromegaly Respiratory exam: PRESENT: clear to auscultation chris. ABSENT: rales, rhonchi, wheezes Cardiovascular exam: PRESENT: RRR. ABSENT: diastolic murmur, rubs, systolic murmur GI/Abdominal exam: PRESENT: normal bowel sounds, soft, other - Pleurx catheter in the left lower abdomen show some mild erythema around it. J-tube is without discharge.. ABSENT: distended, guarding, mass, organolmegaly, rebound, tenderness Extremities exam: ABSENT: calf tenderness, clubbing, pedal edema Neurological exam: PRESENT: alert, awake, oriented to person, oriented to place , oriented to time, oriented to situation, CN II-XII grossly intact. ABSENT: motor sensory deficit Psychiatric exam: PRESENT: appropriate affect Skin exam: PRESENT: dry, intact, warm, other - Minimal erythema around Pleurx catheter. ABSENT: cyanosis, rash Results Laboratory Results: 03/01/17 04:16 03/01/17 04:16 03/01/17 03/01/17 04:16 04:16 WBC 8.2 RBC 3.02 L Hgb 8.5 L Hct 27.6 L MCV 91 MCH 28.2 MCHC 30.9 L RDW 17.4 H Plt Count 299 Seg Neutrophils % 63.6 Lymphocytes % 18.6 Monocytes % 14.3 H Eosinophils % 2.8 Basophils % 0.7 Absolute Neutrophils 5.2 Absolute Lymphocytes 1.5 Absolute Monocytes 1.2 Absolute Eosinophils 0.2 Absolute Basophils 0.1 Sodium 144.3 Potassium 4.7 Chloride 99 Carbon Dioxide 39 H Anion Gap 6 BUN 15 Creatinine 1.00 Est GFR ( Amer) > 60 Est GFR (Non-Af Amer) > 60 Glucose 212 H Calcium 8.2 L Impressions: Guidance Fluoroscopy 02/26/17 16:54 IMPRESSION: UNSUCCESSFUL ATTEMPT TO UNBLOCK JEJUNOSTOMY TUBE.. Abdomen/Pelvis CT 02/27/17 00:00 IMPRESSION: No significant interval changes compared to the previous study. 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 Oncology here is recommending hospice care. Patient's family wants to get a second opinion at [place]. Will hold off on discharge until this is obtained. Patient will continue with IV fluids. (2) Anemia Is this a current diagnosis for this admission?: Yes (3) Sleep apnea, obstructive Is this a current diagnosis for this admission?: Yes (4) Ascites Qualifiers: Ascites type: malignant Is this a current diagnosis for this admission?: YesPlan: Pleurx catheter placed and used to drain the fluid (5) Congestive heart failure Qualifiers: Congestive heart failure type: diastolic Congestive heart failure chronicity: chronic Qualified Code(s): I50.32 - Chronic diastolic ( congestive) heart failure Is this a current diagnosis for this admission?: YesPlan: Is euvolemic (6) Diabetes mellitus Qualifiers: Diabetes mellitus type: type 2 Is this a current diagnosis for this admission?: Yes (7) Hyperlipidemia Qualifiers: Hyperlipidemia type: mixed hyperlipidemia Qualified Code(s): E78.2 - Mixed hyperlipidemia Is this a current diagnosis for this admission?: Yes (8) Hypertension Qualifiers: Hypertension type: essential hypertension Qualified Code(s): I10 - Essential (primary) hypertension Is this a current diagnosis for this admission?: YesPlan: Continue with the outpatient antihypertensives - Time Time Spent with patient: 25-34 minutes - Inpatient Certification Medical Necessity: Need Close Monitoring Due to Risk of Patient Decompensation - Plan Summary Plan Summary: The patient cannot eat because of distal obstruction in his J-tube. Will await the decision at [facility] regarding whether or not further treatment can help this patient. Continue the IV fluids for now.
[2017-03-01] MEDS ORDERED: MORPHINE SULFATE 10 MG/ML INJ IV PRN (15:26)
[2017-03-01] MEDS ORDERED: MORPHINE SULFATE 10 MG/ML INJ IV ONE (16:00)
[2017-03-01] MEDS: ATORVASTATIN CALCIUM 40 MG TABLET PEG SCH (22:55)
[2017-03-02 06:08] LABS: ABSOLUTE BASOPHILS # (AUTO) 0.1 10^3/uL (0.0-0.2); ABSOLUTE EOSINOPHILS # (AUTO) 0.2 10^3/uL (0.0-0.6); ABSOLUTE LYMPHOCYTES (AUTO) 1.6 10^3/uL (0.5-4.7); ABSOLUTE MONOCYTES (AUTO) 1.1 10^3/uL (0.1-1.4); ABSOLUTE NEUT (AUTO) 4.8 10^3/uL (1.7-8.2); BASOPHILS % (AUTO) 0.7 % (0-2); HEMATOCRIT 28.2 % (37.9-51.0); HEMOGLOBIN 8.6 g/dL (13.5-17.0); HGB HCT DIFFERENCE -2.4; LYMPHOCYTES % (AUTO) 20.4 % (13-45); MEAN CORPUSCULAR HGB CONC 30.6 g/dL (32.0-36.0); MEAN CORPUSCULAR VOLUME 92 fl (80-97); MONOCYTES % (AUTO) 13.8 % (3-13); RED BLOOD COUNT 3.08 10^6/uL (4.35-5.55); RED CELL DISTRIBUTION WIDTH 17.3 % (11.5-14.0); SEGMENTED NEUTROPHILS % (AUTO) 62.1 % (42-78); WHITE BLOOD COUNT 7.7 10^3/uL (4.0-10.5)
[2017-03-02 06:21] LABS: ANION GAP 5 (5-19); BLOOD UREA NITROGEN 10 mg/dL (7-20); CALCIUM 8.1 mg/dL (8.4-10.2); CARBON DIOXIDE 35 mmol/L (22-30); CHLORIDE 102 mmol/L (98-107); GLUCOSE 183 mg/dL (75-110); POTASSIUM 4.4 mmol/L (3.6-5.0); SODIUM 142.4 mmol/L (137-145)
[2017-03-02] MEDS: INSULIN LISPRO 100 UNIT/ML 3 ML VIAL SUBCUT PRN ×4 (07:00→23:08)
[2017-03-02] MEDS ORDERED: FENTANYL 12 MCG/HR PATCH.TD72 TP SCH (10:00)
--- NOTE | 2017-03-02 10:03 | PDOC PROGRESS REPORT ---
Subjective Progress Note for:: 03/02/17 Subjective:: Denies any complaint Physical Exam Vital Signs: Temp Pulse Resp BP Pulse Ox 98.6 F 75 12 130/53 H 100 03/02/17 08:29 03/02/17 08:29 03/02/17 08:29 03/02/17 08:29 03/02/17 08:29 Intake & Output 03/01/17 03/02/17 03/03/17 06:59 06:59 06:59 Intake Total 3200 4380 Output Total 975 3640 Balance 2225 740 Weight 83 kg General appearance: PRESENT: no acute distress Eye exam: PRESENT: conjunctiva pink. ABSENT: scleral icterus Mouth exam: PRESENT: moist, tongue midline Neck exam: ABSENT: JVD Respiratory exam: PRESENT: clear to auscultation chris. ABSENT: rales, rhonchi, wheezes Cardiovascular exam: PRESENT: RRR. ABSENT: diastolic murmur, rubs, systolic murmur GI/Abdominal exam: PRESENT: normal bowel sounds, soft, other - Pleurx catheter present in the left lower quadrant. J-tube present upper abdomen. ABSENT: distended, guarding, mass, organolmegaly, rebound, tenderness Extremities exam: ABSENT: calf tenderness, clubbing, pedal edema Neurological exam: PRESENT: alert, awake, oriented to person, oriented to place , oriented to time, oriented to situation, CN II-XII grossly intact. ABSENT: motor sensory deficit Psychiatric exam: PRESENT: appropriate affect Skin exam: PRESENT: other - Mild erythema around the Pleurx catheter on abdomen Results Laboratory Results: 03/02/17 04:47 03/02/17 04:47 03/02/17 03/02/17 04:47 04:47 WBC 7.7 RBC 3.08 L Hgb 8.6 L Hct 28.2 L MCV 92 MCH 28.0 MCHC 30.6 L RDW 17.3 H Plt Count 295 Seg Neutrophils % 62.1 Lymphocytes % 20.4 Monocytes % 13.8 H Eosinophils % 3.0 Basophils % 0.7 Absolute Neutrophils 4.8 Absolute Lymphocytes 1.6 Absolute Monocytes 1.1 Absolute Eosinophils 0.2 Absolute Basophils 0.1 Sodium 142.4 Potassium 4.4 Chloride 102 Carbon Dioxide 35 H Anion Gap 5 BUN 10 Creatinine 0.90 Est GFR ( Amer) > 60 Est GFR (Non-Af Amer) > 60 Glucose 183 H Calcium 8.1 L Impressions: Guidance Fluoroscopy 02/26/17 16:54 IMPRESSION: UNSUCCESSFUL ATTEMPT TO UNBLOCK JEJUNOSTOMY TUBE.. Abdomen/Pelvis CT 02/27/17 00:00 IMPRESSION: No significant interval changes compared to the previous study. 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 Oncology here is recommending hospice care. Patient's family wants to get a second opinion at [place]. Will hold off on discharge until this is obtained. Patient will continue with IV fluids. (2) Anemia Is this a current diagnosis for this admission?: Yes (3) Sleep apnea, obstructive Is this a current diagnosis for this admission?: Yes (4) Ascites Qualifiers: Ascites type: malignant Is this a current diagnosis for this admission?: YesPlan: Pleurx catheter placed and used to drain the fluid (5) Congestive heart failure Qualifiers: Congestive heart failure type: diastolic Congestive heart failure chronicity: chronic Qualified Code(s): I50.32 - Chronic diastolic ( congestive) heart failure Is this a current diagnosis for this admission?: YesPlan: Is euvolemic (6) Diabetes mellitus Qualifiers: Diabetes mellitus type: type 2 Is this a current diagnosis for this admission?: Yes (7) Hyperlipidemia Qualifiers: Hyperlipidemia type: mixed hyperlipidemia Qualified Code(s): E78.2 - Mixed hyperlipidemia Is this a current diagnosis for this admission?: Yes (8) Hypertension Qualifiers: Hypertension type: essential hypertension Qualified Code(s): I10 - Essential (primary) hypertension Is this a current diagnosis for this admission?: YesPlan: Continue with the outpatient antihypertensives - Time Time Spent with patient: 25-34 minutes
[2017-03-02] MEDS: ALLOPURINOL 100 MG TABLET PEG SCH (10:13)
[2017-03-02] MEDS: LOSARTAN POTASSIUM 25 MG TABLET PEG SCH (10:13)
[2017-03-02] MEDS: CARVEDILOL 12.5 MG TABLET PEG SCH ×2 (10:13→22:59)
[2017-03-02] MEDS: HYDRALAZINE HCL 50 MG TABLET PEG SCH ×2 (10:14→22:59)
[2017-03-02] MEDS: DOXAZOSIN MESYLATE 4 MG TABLET PEG SCH (10:14)
[2017-03-02] MEDS: ENOXAPARIN SODIUM INJ 40 MG/0.4 ML DISP.SYRIN SUBCUT SCH (10:15)
[2017-03-02] MEDS: ATORVASTATIN CALCIUM 40 MG TABLET PEG SCH (22:59)
[2017-03-03] MEDS: DEXTROSE 5%-NORMAL SALINE 1,000 ML IV PRN (03:40)
[2017-03-03 05:03] LABS: ABSOLUTE BASOPHILS # (AUTO) 0.1 10^3/uL (0.0-0.2); ABSOLUTE EOSINOPHILS # (AUTO) 0.2 10^3/uL (0.0-0.6); ABSOLUTE LYMPHOCYTES (AUTO) 1.3 10^3/uL (0.5-4.7); ABSOLUTE MONOCYTES (AUTO) 0.9 10^3/uL (0.1-1.4); ABSOLUTE NEUT (AUTO) 4.6 10^3/uL (1.7-8.2); BASOPHILS % (AUTO) 1.2 % (0-2); EOSINOPHILS % (AUTO) 2.8 % (0-6); HEMATOCRIT 28.1 % (37.9-51.0); HEMOGLOBIN 8.8 g/dL (13.5-17.0); HGB HCT DIFFERENCE -1.7; LYMPHOCYTES % (AUTO) 18.8 % (13-45); MEAN CORPUSCULAR HEMOGLOBIN 28.2 pg (27.0-33.4); MEAN CORPUSCULAR HGB CONC 31.1 g/dL (32.0-36.0); MEAN CORPUSCULAR VOLUME 91 fl (80-97); MONOCYTES % (AUTO) 12.3 % (3-13); RED CELL DISTRIBUTION WIDTH 17.4 % (11.5-14.0); SEGMENTED NEUTROPHILS % (AUTO) 64.9 % (42-78)
[2017-03-03 05:27] LABS: ANION GAP 7 (5-19); BLOOD UREA NITROGEN 9 mg/dL (7-20); CALCIUM 8.1 mg/dL (8.4-10.2); CARBON DIOXIDE 33 mmol/L (22-30); CHLORIDE 102 mmol/L (98-107); CREATININE RESULT 0.82 mg/dL (0.52-1.25); GLUCOSE 195 mg/dL (75-110); POTASSIUM 4.3 mmol/L (3.6-5.0); SODIUM 142.4 mmol/L (137-145)
[2017-03-03] MEDS: INSULIN LISPRO 100 UNIT/ML 3 ML VIAL SUBCUT PRN (06:44)
--- NOTE | 2017-03-03 08:11 | PDOC PROGRESS REPORT ---
Subjective Progress Note for:: 03/03/17 Subjective:: The patient and family ultimately wanted a second opinion at [facility], the business support coordinator there at [place] requested records and we sent them on Friday. We are awaiting those results. Physical Exam Vital Signs: Temp Pulse Resp BP Pulse Ox 98.3 F 73 13 156/64 H 100 03/03/17 04:00 03/03/17 04:00 03/03/17 04:00 03/03/17 04:00 03/03/17 04:00 Intake & Output 03/02/17 03/03/17 03/04/17 06:59 06:59 06:59 Intake Total 4380 4260 Output Total 3640 2460 Balance 740 1800 Weight 83 kg 83 kg General appearance: PRESENT: no acute distress, well-developed, well-nourished Head exam: PRESENT: atraumatic, normocephalic Eye exam: PRESENT: conjunctiva pink, EOMI, PERRLA. ABSENT: scleral icterus Ear exam: PRESENT: normal external ear exam Mouth exam: PRESENT: moist, tongue midline Neck exam: ABSENT: carotid bruit, JVD, lymphadenopathy, thyromegaly Respiratory exam: PRESENT: clear to auscultation chris. ABSENT: rales, rhonchi, wheezes Cardiovascular exam: PRESENT: RRR. ABSENT: diastolic murmur, rubs, systolic murmur Pulses: PRESENT: normal dorsalis pedis pul Vascular exam: PRESENT: normal capillary refill GI/Abdominal exam: PRESENT: normal bowel sounds, soft. ABSENT: distended, guarding, mass, organolmegaly, rebound, tenderness Rectal exam: PRESENT: deferred Extremities exam: PRESENT: full ROM. ABSENT: calf tenderness, clubbing, pedal edema Neurological exam: PRESENT: alert, awake, oriented to person, oriented to place , oriented to time, oriented to situation, CN II-XII grossly intact. ABSENT: motor sensory deficit Psychiatric exam: PRESENT: appropriate affect, normal mood. ABSENT: homicidal ideation, suicidal ideation Skin exam: PRESENT: dry, intact, warm. ABSENT: cyanosis, rash Results Laboratory Results: 03/03/17 04:40 03/03/17 04:00 03/03/17 03/03/17 04:00 04:40 WBC 7.0 RBC 3.10 L Hgb 8.8 L Hct 28.1 L MCV 91 MCH 28.2 MCHC 31.1 L RDW 17.4 H Plt Count 290 Seg Neutrophils % 64.9 Lymphocytes % 18.8 Monocytes % 12.3 Eosinophils % 2.8 Basophils % 1.2 Absolute Neutrophils 4.6 Absolute Lymphocytes 1.3 Absolute Monocytes 0.9 Absolute Eosinophils 0.2 Absolute Basophils 0.1 Sodium 142.4 Potassium 4.3 Chloride 102 Carbon Dioxide 33 H Anion Gap 7 BUN 9 Creatinine 0.82 Est GFR ( Amer) > 60 Est GFR (Non-Af Amer) > 60 Glucose 195 H Calcium 8.1 L Impressions: Guidance Fluoroscopy 02/26/17 16:54 IMPRESSION: UNSUCCESSFUL ATTEMPT TO UNBLOCK JEJUNOSTOMY TUBE.. Abdomen/Pelvis CT 02/27/17 00:00 IMPRESSION: No significant interval changes compared to the previous study. Findings as noted above Assessment & Plan - Diagnosis (1) Gastric outlet obstruction Is this a current diagnosis for this admission?: YesPlan: Continued, secondary to tumor compression. 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 (4) Pain, neoplasm-related Is this a current diagnosis for this admission?: YesPlan: Current regimen seems to be controlling pain well, continue with morphine as well as fentanyl patch. - Time Time Spent with patient: 35 or more minutes Critical Time spent with patient: 35 or more minutes
[2017-03-03] MEDS: CARVEDILOL 12.5 MG TABLET PEG SCH (10:04)
[2017-03-03] MEDS: HYDRALAZINE HCL 50 MG TABLET PEG SCH (10:04)
[2017-03-03] MEDS: ALLOPURINOL 100 MG TABLET PEG SCH (10:04)
[2017-03-03] MEDS: LOSARTAN POTASSIUM 25 MG TABLET PEG SCH (10:05)
[2017-03-03] MEDS: DOXAZOSIN MESYLATE 4 MG TABLET PEG SCH (10:05)
[2017-03-03] MEDS: ENOXAPARIN SODIUM INJ 40 MG/0.4 ML DISP.SYRIN SUBCUT SCH (10:05)
[2017-03-03 12:56] VITALS: BP 157/68
--- NOTE | 2017-03-03 13:57 | PDOC DISCHARGE SUMMARY ---
General - Admit/Disc Date/PCP Admission Date/Primary Care Provider: 02/28/17 13:58 JESSEE LEAHY Discharge Date: 03/03/17 - Discharge Diagnosis (1) Gastric outlet obstruction Is this a current diagnosis for this admission?: Yes (2) Hypoglycemia Is this a current diagnosis for this admission?: Yes (3) Intractable vomiting with nausea Is this a current diagnosis for this admission?: Yes (4) Gastric cancer Is this a current diagnosis for this admission?: Yes (5) Metabolic alkalosis Is this a current diagnosis for this admission?: Yes (6) Reflux esophagitis Is this a current diagnosis for this admission?: Yes (7) DVT prophylaxis Is this a current diagnosis for this admission?: Yes - Additional Information Resuscitation Status: Full Code Discharge Activity: Activity As Tolerated Home Medications: Allopurinol [Zyloprim 100 mg Tablet] 100 mg PO DAILY 02/27/17 Atorvastatin Calcium [Lipitor 40 mg Tablet] 40 mg PO QHS 02/27/17 Carvedilol [Coreg 25 mg Tablet] 25 mg PO Q12 02/27/17 Fentanyl [Duragesic 12 Mcg/Hr Transdermal Patch] 1 patch TP Q3D 02/27/17 Finasteride [Proscar 5 mg Tablet] 5 mg PO DAILY 02/27/17 Hydralazine HCl [Apresoline 50 mg Tablet] 50 mg PO Q12 02/27/17 Insulin Detemir [Levemir Flextouch] 40 units SQ QHS 02/27/17 Isosorbide Mononitrate [Isosorbide Mononitrate ER] 30 mg PO DAILY 02/27/17 Levofloxacin [Levaquin 500 mg Tablet] 500 mg PO DAILY 02/27/17 Losartan Potassium [Cozaar 25 mg Tablet] 25 mg PO DAILY 02/27/17 Metoclopramide HCl [Reglan] 5 mg PO Q6 02/27/17 Omeprazole 20 mg PO DAILY 02/27/17 Ondansetron [Zofran Odt 4 mg Tablet] 4 mg PO Q4HP PRN 02/27/17 Oxycodone HCl 5 mg PO Q4 02/27/17 Oxycodone HCl/Acetaminophen [Percocet 5-325 mg Tablet] 1 tab PO BID 02/27/17 Promethazine HCl [Phenergan 25 mg Supp.rect] 25 mg MD Q4HP PRN 02/27/17 Terazosin HCl [Hytrin] 5 mg PO DAILY 02/27/17 Torsemide [Demadex 20 mg Tablet] 20 mg PO DAILY 02/27/17 History of Present Illness History of Present Illness: 76 yr old man with hx of DM2/HTN/Hyperlipidemia/CHF/CKD stage3/DELVIS on CPAP/GERD/ BPH/Constipation/Vitamin D def/Gout, who was recently diagnosed with stage 4 4 gastric cancer and had Jtube for feeding; G tube for drainage of gastric content and Pleurx for ascitic drainage. He was discharged from [facility] on 2016 for intractable vomiting, acute kidney injury and metabolic alkalosis. The J tube was siad to have stopped working yesterday and was blocked and he became hypoglycemic due to inability to feed him. He was brought to ER and attempts to declog the J-tube by interventional radiologist failed and the Dr Tata abdullahi in [place] declined to take him him back insisting that it will be futile and that patient should be considered for palliative care. Hospital Course Hospital Course: 76 year old man who was admitted for gastric outlet obstruction/Blockage of J- tube by gastric tumor/Stage 4 gastric cancer/Intractable vomiting. He was put on IV fluid 5% dextrose in saline and Zofran and Compazine IV, Morphine IV and Fentanyl patch. Interventional radiology attempted to declog the J-tube but failed and [facility] refused to accept him back and recommended palliative care. He had repeat CT abdomen/pelvis that confirmed the tumor is causing the blockage of J-tube. The oncologist, Dr Deras had a meeting with the family and discussed the grave prognosis with them. They agreed on DNR and hospice care, but the patient and his daughter contacted [facility] on friday, 2016 for second opinion. Ms Joann Yang RN with GI oncology requested his records from Dr Deras and he sent all his records on 02/28/2017. The patient' s daughter called my office today requesting I should call [facility] transfer center on [phone] for a hospital to hospital transfer. I called and spoke to Ms Portillo, who informed that they do not have patient's records in their system.I then called patient's daughter on [phone], but since I could get hold of her , I called Dr Deras, who gave me the contact of MS Joann Yang with [facility]. Ms Portillo spoke to Ms Yang and she confirmed that she is working on outpatient appointment with [facility], but the patient's daughter wanted a hospital to hospital transfer.Ms Goddard connected me to Dr jC Hall, solid tumor oncologist with [facility].I discussed the case with him and he said the patient is a hospice case, but if the family wants a second opinion with [facility], they will have to go through outpatient appointment with [facility]- with GI oncology.I was informed that Ms Joann Yang is already working on it. I discussed all these issues with patient's daughter, Ms Hammond and she said I should discharge her father home today and that they plan to take him to [facility] ER on their own. I asked her if I should include hospice services as part of discharge plan, she said I should hold off on that for now. He will be discharged home today. I discussed this with Dr Deras and patient's nurse, Ms Blake. Physical Exam Vital Signs: Temp Pulse Resp BP Pulse Ox 98.5 F 73 17 157/68 H 100 03/03/17 12:00 03/03/17 12:00 03/03/17 12:00 03/03/17 12:00 03/03/17 12:00 Intake & Output 03/02/17 03/03/17 03/04/17 06:59 06:59 06:59 Intake Total 4380 4260 Output Total 3640 2460 Balance 740 1800 Weight 83 kg 83 kg General appearance: PRESENT: no acute distress, cooperative Head exam: PRESENT: normocephalic Eye exam: PRESENT: EOMI, PERRLA Mouth exam: PRESENT: tongue midline Neck exam: PRESENT: full ROM Respiratory exam: PRESENT: clear to auscultation chris, symmetrical Cardiovascular exam: PRESENT: +S1, +S2 Pulses: PRESENT: +2 pedal pulses bilateral GI/Abdominal exam: PRESENT: ascites, mass, normal bowel sounds Rectal exam: PRESENT: deferred Extremities exam: PRESENT: full ROM Neurological exam: PRESENT: alert, awake, oriented to person, oriented to place , oriented to time Psychiatric exam: PRESENT: normal mood Results Laboratory Results: 03/03/17 04:40 03/03/17 04:00 03/03/17 03/03/17 04:00 04:40 WBC 7.0 RBC 3.10 L Hgb 8.8 L Hct 28.1 L MCV 91 MCH 28.2 MCHC 31.1 L RDW 17.4 H Plt Count 290 Seg Neutrophils % 64.9 Lymphocytes % 18.8 Monocytes % 12.3 Eosinophils % 2.8 Basophils % 1.2 Absolute Neutrophils 4.6 Absolute Lymphocytes 1.3 Absolute Monocytes 0.9 Absolute Eosinophils 0.2 Absolute Basophils 0.1 Sodium 142.4 Potassium 4.3 Chloride 102 Carbon Dioxide 33 H Anion Gap 7 BUN 9 Creatinine 0.82 Est GFR ( Amer) > 60 Est GFR (Non-Af Amer) > 60 Glucose 195 H Calcium 8.1 L Impressions: Guidance Fluoroscopy 02/26/17 16:54 IMPRESSION: UNSUCCESSFUL ATTEMPT TO UNBLOCK JEJUNOSTOMY TUBE.. Abdomen/Pelvis CT 02/27/17 00:00 IMPRESSION: No significant interval changes compared to the previous study. Findings as noted above
== END 2017-03-03 15:00 | disposition home or self-care (01) | DRG 394 ==
LOC: ER 14:49 → EH 23:34 → UNDOADMOB 23:34 → EH 02-27 00:40 → 4N 02-27 01:35 → OBSVTOIN 02-28 13:58
PROVIDERS: ADMIT Internal Medicine; ATTEND Internal Medicine
DX: K94.13 Enterostomy malfunction (principal); K31.1 Adult hypertrophic pyloric stenosis; C16.3 Malignant neoplasm of pyloric antrum; E87.3 Alkalosis; I13.0 Hypertensive heart and chronic kidney disease with heart failure and stage 1 through stage 4 chronic kidney disease, or unspecified chronic kidney disease; I50.32 Chronic diastolic (congestive) heart failure; R18.0 Malignant ascites; K21.0 Gastro-esophageal reflux disease with esophagitis; E11.22 Type 2 diabetes mellitus with diabetic chronic kidney disease; R11.2 Nausea with vomiting, unspecified; N18.3 Chronic kidney disease, stage 3 (moderate); E11.649 Type 2 diabetes mellitus with hypoglycemia without coma; E78.2 Mixed hyperlipidemia; G47.33 Obstructive sleep apnea (adult) (pediatric); N40.0 Benign prostatic hyperplasia without lower urinary tract symptoms; K59.00 Constipation, unspecified; E55.9 Vitamin D deficiency, unspecified; M10.9 Gout, unspecified; Y83.3 Surgical operation with formation of external stoma as the cause of abnormal reaction of the patient, or of later complication, without mention of misadventure at the time of the procedure; G89.3 Neoplasm related pain (acute) (chronic); Z91.013 Allergy to seafood; Z79.4 Long term (current) use of insulin; Z79.899 Other long term (current) drug therapy
CPT/HCPCS: 36415; 74177; 74340; 80048; 80053; 82962; 85025; 93005; 93010; 96374; 99285; G0378; J0780; J1650; J1815; J2270; J2405; J3490; J7030; S0164

== ENCOUNTER 2017-03-11 13:26 | Inpatient (IN) | payer MEDICARE, BC ==
--- NOTE | 2017-03-11 13:57 | ER Document Report ---
ED General - General Stated Complaint: ALTERED MENTAL STATUS Time Seen by Provider: 03/11/17 13:50 Mode of Arrival: Medic Information source: Patient, Relative Notes: 76 yr old male with hx of terminal cancer presents with daughter with concerns for confusion and altered mental status. Patient has been on hospice over the weekend however today was taken off hospice because he is supposed to have chemotherapy for the first time tomorrow by . Patient admits to generalized weakness shaking episodes TRAVEL OUTSIDE OF THE [place] IN LAST 30 DAYS: No - HPI Onset: Yesterday Onset/Duration: Sudden Quality of pain: No pain Severity: Mild Pain Level: Denies Associated symptoms: Weakness Exacerbated by: Denies Relieved by: Denies Similar symptoms previously: Yes Recently seen / treated by doctor: Yes - Related Data Allergies/Adverse Reactions: Shellfish * Adverse Reaction (Mild, Verified 02/26/17 18:11) GOUT Past Medical History - Social History Smoking Status: Never Smoker Cigarette use (# per day): No Chew tobacco use (# tins/day): No Smoking Education Provided: No Family History: None - Past Medical History Cardiac Medical History: Reports: Hx Congestive Heart Failure, Hx Hypercholesterolemia, Hx Hypertension Denies: Hx Coronary Artery Disease, Hx Heart Attack Pulmonary Medical History: Denies: Hx Asthma, Hx Bronchitis, Hx COPD, Hx Pneumonia Neurological Medical History: Denies: Hx Cerebrovascular Accident, Hx Seizures Endocrine Medical History: Reports: Hx Diabetes Mellitus Type 1, Hx Diabetes Mellitus Type 2 Renal/ Medical History: Reports: Hx Renal Insufficiency. Denies: Hx Peritoneal Dialysis GI Medical History: Denies: Hx Cirrhosis Musculoskeltal Medical History: Reports Hx Arthritis - Legs and arms Psychiatric Medical History: Denies: Hx Depression Past Surgical History: Reports: Hx Orthopedic Surgery - Left knee and left hip, Other - Recent GJ tube placement, Pleurx catheter in the abdomen - Immunizations Hx Diphtheria, Pertussis, Tetanus Vaccination: Yes Review of Systems - Review of Systems Notes: REVIEW OF SYSTEMS: CONSTITUTIONAL : Admits to generalized weakness EENT: Denies eye, ear, throat, or mouth pain or symptoms. Denies nasal or sinus congestion or discharge. Denies throat, tongue, or mouth swelling or difficulty swallowing. CARDIOVASCULAR: Denies chest pain. Denies palpitations or racing or irregular heart beat. Denies ankle edema. RESPIRATORY: Denies cough, cold, or chest congestion. Denies shortness of breath, difficulty breathing, or wheezing. GASTROINTESTINAL: Denies abdominal pain or distention. Denies nausea, vomiting , or diarrhea. Denies blood in vomitus, stools, or per rectum. Denies black, tarry stools. Denies constipation. GENITOURINARY: Denies difficulty urinating, painful urination, burning, frequency, blood in urine, or discharge. MUSCULOSKELETAL: Denies back or neck pain or stiffness. Denies joint pain or swelling. SKIN: Denies rash, lesions or sores. HEMATOLOGIC : Denies easy bruising or bleeding. LYMPHATIC: Denies swollen, enlarged glands. NEUROLOGICAL: Admits confusion PSYCHIATRIC: Denies anxiety or stress. Denies depression, suicidal ideation, or homicidal ideation. ALL OTHER SYSTEMS REVIEWED AND NEGATIVE. Dictation was performed using [employer] voice recognition software PHYSICAL EXAMINATION: GENERAL: Well-appearing, well-nourished and in no acute distress. HEAD: Atraumatic, normocephalic. EYES: Pupils equal round and reactive to light, extraocular movements intact, sclera anicteric, conjunctiva are normal. ENT: Nares patent, oropharynx clear without exudates. Moist mucous membranes. NECK: Normal range of motion, supple without lymphadenopathy LUNGS: Crackles left base HEART: Regular rate and rhythm without murmurs ABDOMEN: Abdomen distended G-tube J-tube in place Musculoskeletal: Normal range of motion, no pitting or edema. No cyanosis. NEUROLOGICAL: Cranial nerves grossly intact. Normal speech, normal gait. Normal sensory, motor exams PSYCH: Normal mood, normal affect. SKIN: Warm, Dry, normal turgor, no rashes or lesions noted. Course - Re-evaluation Re-evalutation: 03/11/17 14:57 I spoke with patient's oncologist, he believes that the patient is a poor candidate for chemotherapy at this point. 03/11/17 16:09 pneumonia noted, treated with levaquin pt noted to be in resp acidosis, co2 is elevated, pt t obe placed on bipap contacted dr woo for admission 03/11/17 16:14 Patient meets sepsis criteria at this point will give IV fluids as well and admit the patient - Laboratory Result Diagrams: 03/11/17 14:45 03/11/17 14:45 Laboratory results interpreted by me: 03/11/17 03/11/17 03/11/17 14:45 14:45 14:45 RBC 2.73 L Hgb 7.6 L Hct 24.5 L MCHC 31.1 L RDW 17.5 H VBG pH VBG pCO2 VBG HCO3 Potassium 3.5 L Chloride 73 L Carbon Dioxide 59 H* BUN 43 H Creatinine 1.73 H Est GFR ( Amer) 47 L Est GFR (Non-Af Amer) 39 L Glucose 243 H Lactic Acid 2.3 H Calcium 7.5 L Alkaline Phosphatase 394 H Albumin 2.7 L Urine Protein Urine Urobilinogen 03/11/17 03/11/17 14:45 14:45 RBC Hgb Hct MCHC RDW VBG pH 7.47 H VBG pCO2 86.7 H* VBG HCO3 62.3 H Potassium Chloride Carbon Dioxide BUN Creatinine Est GFR ( Amer) Est GFR (Non-Af Amer) Glucose Lactic Acid Calcium Alkaline Phosphatase Albumin Urine Protein 100 H Urine Urobilinogen 2.0 H - Diagnostic Test Radiology reviewed: Image reviewed, Reports reviewed - LLL pneumonia Critical Care Note - Critical Care Note Total time excluding time spent on procedures (mins): 44 Comments: 44 minutes of critical care time spent in direct contact evaluating and reevaluating the patient, treating symptoms, reviewing labs and studies and speaking with family and consultants excluding any procedures Discharge - Discharge Clinical Impression: Respiratory acidosis Left lower lobe pneumonia Qualifiers: Pneumonia type: due to unspecified organism Qualified Code(s): J18.1 - Lobar pneumonia, unspecified organism Sepsis Qualifiers: Sepsis type: sepsis due to unspecified organism Qualified Code(s): A41.9 - Sepsis, unspecified organism Anemia Qualifiers: Anemia type: unspecified type Qualified Code(s): D64.9 - Anemia, unspecified Condition: Poor Disposition: ADMITTED INPATIENT Admitting Provider: [facility] Admitted: [facility]
--- NOTE | 2017-03-11 14:31 | RADIOLOGY REPORT (SQ) ---
EXAM DESCRIPTION: CHEST SINGLE VIEW COMPLETED DATE/TIME: 03/11/2017 2:18 pm REASON FOR STUDY: terminal cancer COMPARISON: Chest radiograph 01/18/[address] 02/19/2017 EXAM PARAMETERS: NUMBER OF VIEWS: One view. TECHNIQUE: Single frontal radiographic view of the chest acquired. RADIATION DOSE: NA LIMITATIONS: None. FINDINGS: LUNGS AND PLEURA: There is considerable opacification in the left base and the left hemidi aphragm is indistinct. A small left pleural effusion is suggested. MEDIASTINUM AND HILAR STRUCTURES: No masses. Contour normal. HEART AND VASCULAR STRUCTURES: Cardiomegaly. BONES: No acute findings. HARDWARE: Injection port on the left. The tip of the catheter is in the superior vena cava. OTHER: No other significant finding. IMPRESSION: 1. Cardiomegaly without CHF. 2. Left lower lobe pneumonia. TECHNICAL DOCUMENTATION: JOB ID: [id number]
[2017-03-11] MEDS ORDERED: LEVOFLOXACIN 750 MG/D5W RTU 150 ML IV ONE (14:44)
[2017-03-11 15:09] LABS: ABSOLUTE EOSINOPHILS # (AUTO) 0.1 10^3/uL (0.0-0.6); ABSOLUTE LYMPHOCYTES (AUTO) 1.5 10^3/uL (0.5-4.7); ABSOLUTE MONOCYTES (AUTO) 0.8 10^3/uL (0.1-1.4); ABSOLUTE NEUT (AUTO) 7.3 10^3/uL (1.7-8.2); BASOPHILS % (AUTO) 0.3 % (0-2); EOSINOPHILS % (AUTO) 0.7 % (0-6); HEMATOCRIT 24.5 % (37.9-51.0); HGB HCT DIFFERENCE -1.7; LYMPHOCYTES % (AUTO) 15.2 % (13-45); MEAN CORPUSCULAR HEMOGLOBIN 27.8 pg (27.0-33.4); MEAN CORPUSCULAR HGB CONC 31.1 g/dL (32.0-36.0); MEAN CORPUSCULAR VOLUME 89 fl (80-97); MONOCYTES % (AUTO) 8.3 % (3-13); RED BLOOD COUNT 2.73 10^6/uL (4.35-5.55); RED CELL DISTRIBUTION WIDTH 17.5 % (11.5-14.0); SEGMENTED NEUTROPHILS % (AUTO) 75.5 % (42-78); WHITE BLOOD COUNT 9.6 10^3/uL (4.0-10.5)
[2017-03-11 15:10] LABS: VENOUS BLOOD BASE EXCESS 34.5 mmol/L; VENOUS BLOOD HCO3 62.3 mmol/L (20-32); VENOUS BLOOD PH 7.47 (7.30-7.42)
--- NOTE | 2017-03-11 15:10 | RADIOLOGY REPORT (SQ) ---
EXAM DESCRIPTION: CT HEAD WITHOUT COMPLETED DATE/TIME: 03/11/2017 3:00 pm REASON FOR STUDY: hx of cancer, jerking motions COMPARISON: 09/25/2014. TECHNIQUE: Axial images acquired through the brain without intravenous contrast. Images reviewed wi th bone, brain and subdural windows. Images stored on PACS. All CT scanners at this facility use dose modulation, iterative reconstruction, and/or weight based d osing when appropriate to reduce radiation dose to as low as reasonably achievable (ALARA). [facility]: Dose Right [facility]: CareDose [facility]: Dose Right [facility]: Teradose 4D [facility]: [employer] RADIATION DOSE: Up-to-date CT equipment and radiation dose reduction techniques were employed. CTDIv ol: 49.0 mGy. DLP: 783 mGy-cm. mGy. LIMITATIONS: None. FINDINGS: VENTRICLES: Prominent. CEREBRUM: No masses. No hemorrhage. No midline shift. Areas of low density in the white matter mos t likely due to chronic micro-vascular ischemic change. No evidence for acute infarction. CEREBELLUM: No masses. No hemorrhage. No alteration of density. No evidence for acute infarction. EXTRAAXIAL SPACES: Mild age-related involutional change. No fluid collections. No masses. ORBITS AND GLOBE: No intra- or extraconal masses. Normal contour of globe without masses. CALVARIUM: No fracture. PARANASAL SINUSES: No fluid or mucosal thickening. SOFT TISSUES: No mass or hematoma. OTHER: No other significant finding. IMPRESSION: MILD CHRONIC CHANGES OF ATROPHY AND MICROVASCULAR ISCHEMIA. NO ACUTE PROCESS. TECHNICAL DOCUMENTATION: JOB ID: [id number] Quality ID # [id number]: Final reports with documentation of one or more dose reduction techniques (e.g., Au tomated exposure control, adjustment of the mA and/or kV according to patient size, use of iterative reconstruction technique) 2010 [employer]- All Rights Reserved
[2017-03-11 15:12] LABS: VENOUS BLOOD PCO2 86.7 mmHg (35-63)
[2017-03-11 15:14] LABS: PROTHROMBIN TIME 14.6 SEC (11.4-15.4)
[2017-03-11 15:15] LABS: HEMOGLOBIN 7.6 g/dL (13.5-17.0)
[2017-03-11 15:27] LABS: APPEARANCE,URINE SLIGHTLY-CLOUDY; BILIRUBIN,URINE NEGATIVE (NEGATIVE); GLUCOSE, URINE NEGATIVE (NEGATIVE); KETONES,URINE NEGATIVE (NEGATIVE); LEUKOCYTE ESTERASE,URINE NEGATIVE (NEGATIVE); NITRITE,URINE NEGATIVE (NEGATIVE); PROTEIN,URINE 100 mg/dL (NEGATIVE)
[2017-03-11 15:33] LABS: ALANINE AMINOTRANSFERASE 38 U/L (21-72); ALBUMIN 2.7 g/dL (3.5-5.0); ALKALINE PHOSPHATASE 394 U/L (38-126); ASPARTATE AMINO TRANSFERASE 42 U/L (17-59); BILIRUBIN,DIRECT 0.4 mg/dL (0.0-0.4); BILIRUBIN,TOTAL 0.9 mg/dL (0.2-1.3); BLOOD UREA NITROGEN 43 mg/dL (7-20); CALCIUM 7.5 mg/dL (8.4-10.2); CHLORIDE 73 mmol/L (98-107); CREATININE RESULT 1.73 mg/dL (0.52-1.25); GLUCOSE 243 mg/dL (75-110); POTASSIUM 3.5 mmol/L (3.6-5.0); SODIUM 140.4 mmol/L (137-145); TOTAL PROTEIN 6.5 g/dL (6.3-8.2)
[2017-03-11 16:06] LABS: ANION GAP 8 (5-19)
[2017-03-11 16:07] LABS: CARBON DIOXIDE 59 mmol/L (22-30)
[2017-03-11] MEDS ORDERED: NORMAL SALINE 1000 ML 1,000 ML IV ONE (16:13)
[2017-03-11] MEDS ORDERED: NORMAL SALINE 1000 ML 1,000 ML IV PRN ×2 (16:13→16:32)
[2017-03-11] MEDS ORDERED: LORAZEPAM INJ 2 MG/1 ML VIAL IV ONE (16:18)
[2017-03-11] MEDS ORDERED: ONDANSETRON 4 MG TAB.RAPDIS PO PRN (16:41)
[2017-03-11] MEDS ORDERED: PROMETHAZINE HCL 25 MG SUPP.RECT PR PRN (16:41)
[2017-03-11] MEDS ORDERED: FENTANYL 12 MCG/HR PATCH.TD72 TP SCH (16:45)
[2017-03-11] MEDS ORDERED: AZITHROMYCIN INJ 500 MG VIAL IV SCH (17:00)
--- NOTE | 2017-03-11 17:24 | PDOC H&P ---
History of Present Illness Admission Date/PCP: 03/11/17 16:30 JESSEE LEAHY Patient complains of: Confusion, chnage in mental status. History of Present Illness: JASMIN ELLSWORTH is a 76 year old male with h xof DM2/HTN/Hyperlipidemia/CHF- diastolic dysfunction/CKD stage 3/DELVIS on CPAP/GERD/BPH/Constipation/Gout/ Vitamin D/Obesity who was recently diagnosed with stage 4 gastric cancer s.p Gastric and J- tubes/Pleurx, who was recently discharged from [facility] where the blocked J-tube was declogged. He was put on hospice, but was discontinued for possible chemotherapy on 03/12/2017, but patient started having confusion and change in mental status to day and he was brought to ER and was found to have left lower lobe pneumonia, worsening metabolic alkalosis and anemia . He will be admitted to [facility] for mgt. Past Medical History Cardiac Medical History: Reports: Congestive Heart Failure, Hyperlipidema, Hypertension Denies: Coronary Artery Disease, Myocardial Infarction Pulmonary Medical History: Denies: Asthma, Bronchitis, Chronic Obstructive Pulmonary Disease (COPD), Pneumonia Neurological Medical History: Denies: Seizures Endocrine Medical History: Reports: Diabetes Mellitus Type 1, Diabetes Mellitus Type 2 GI Medical History: Denies: Cirrhosis Musculoskeltal Medical History: Reports: Arthritis - Legs and arms Psychiatric Medical History: Denies: Depression Hematology: Denies: Anemia Past Surgical History Past Surgical History: Reports: Orthopedic Surgery - Left knee and left hip, Other - Recent GJ tube placement, Pleurx catheter in the abdomen Social History Smoking Status: Never Smoker Frequency of Alcohol Use: None Hx Recreational Drug Use: No Drugs: None Hx Prescription Drug Abuse: No Family History Family History: None Parental Family History Reviewed: Yes Children Family History Reviewed: Yes Sibling(s) Family History Reviewed.: Yes Medication/Allergy Allergies/Adverse Reactions: Shellfish * Adverse Reaction (Mild, Verified 02/26/17 18:11) GOUT Review of Systems All systems: as per PMH Constitutional: PRESENT: fatigue, weakness Eyes: PRESENT: as per HPI Ears: PRESENT: as per HPI Nose, Mouth, and Throat: PRESENT: as per HPI Cardiovascular: PRESENT: as per HPI Respiratory: PRESENT: as per HPI Gastrointestinal: PRESENT: abdominal pain Genitourinary: PRESENT: as per HPI Musculoskeletal: PRESENT: back pain Integumentary: PRESENT: as per HPI Neurological: PRESENT: as per HPI Psychiatric: PRESENT: as per HPI Endocrine: PRESENT: as per HPI Hematologic/Lymphatic: PRESENT: as per HPI Allergic/Immunologic: PRESENT: as per HPI Physical Exam Vital Signs: Temp Pulse Resp BP Pulse Ox 18 99 03/11/17 16:25 03/11/17 16:25 General appearance: PRESENT: cooperative, mild distress, morbidly obese, well- nourished Head exam: PRESENT: atraumatic, normocephalic Eye exam: PRESENT: EOMI, PERRLA Ear exam: PRESENT: normal external ear exam, TM's normal bilaterally Mouth exam: PRESENT: neck supple, tongue midline Neck exam: PRESENT: full ROM Respiratory exam: PRESENT: crackles, decreased breath sounds, symmetrical Cardiovascular exam: PRESENT: +S1, +S2 Pulses: PRESENT: +2 pedal pulses bilateral GI/Abdominal exam: PRESENT: ascites, distended, firm, mass, soft Rectal exam: PRESENT: deferred Neurological exam: PRESENT: alert, oriented to person, oriented to place Psychiatric exam: PRESENT: anxious, depressed Results Impressions: Chest X-Ray 03/11/17 13:50 IMPRESSION: 1. Cardiomegaly without CHF. 2. Left lower lobe pneumonia. Head CT 03/11/17 13:51 IMPRESSION: MILD CHRONIC CHANGES OF ATROPHY AND MICROVASCULAR ISCHEMIA. NO ACUTE PROCESS. Assessment & Plan - Diagnosis (1) LLL pneumonia Qualifiers: Pneumonia type: due to unspecified organism Qualified Code(s): J18.1 - Lobar pneumonia, unspecified organism Is this a current diagnosis for this admission?: YesPlan: Ct with Rocephin 1 G daily IV; Azithromycin 1 G daily IV; Tylenol 650 mg q6h prn ; Ct with BIPAP and oxygen by N/C 2 L/Ni to keep saturation >92%.F/u Blood cultures and sputum cultures. (2) Sepsis Qualifiers: Sepsis type: sepsis due to unspecified organism Qualified Code(s): A41.9 - Sepsis, unspecified organism Is this a current diagnosis for this admission?: YesPlan: Ct with Rocephin 1 G daily IV; Azithromycin 500 mg daily IV; Tyllenol 650 mg q6h prn; IV fluids normal saline at 125 cc/hr; BIPAP and oxygen 2 L/min to keep saturation >92%. F/u Blood and sputum cultures. (3) Metabolic alkalosis Is this a current diagnosis for this admission?: YesPlan: Ct with IV fluids normal saline at 125 cc/hr; monitor chemistries daily. (4) Anemia Qualifiers: Anemia type: unspecified type Qualified Code(s): D64.9 - Anemia, unspecified Is this a current diagnosis for this admission?: YesPlan: Transfuse 2 units of PRBC; monitor CBC daily. (5) Diabetes mellitus Qualifiers: Diabetes mellitus type: type 2 Is this a current diagnosis for this admission?: YesPlan: Ct with Levemir 40 units qhs subcut; Slidding scale with humalog insulin, OM protocol; accucheck Q6H. (6) Hypertension Qualifiers: Hypertension type: essential hypertension Qualified Code(s): I10 - Essential (primary) hypertension Is this a current diagnosis for this admission?: YesPlan: Ct with Coreg 25 mg BID; Losartan 25 mg qd; Hydralazine 50 mg TID; Ismo 30 mg qd. (7) Intractable vomiting with nausea Qualifiers: Vomiting type: unspecified Qualified Code(s): R11.2 - Nausea with vomiting, unspecified Is this a current diagnosis for this admission?: YesPlan: Ct with Promethazine suppository 25 mg q6h prn ; Reglan 5 mg q6h prn; Zofran 4 mg q4h prn . 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 (9) Congestive heart failure Qualifiers: Congestive heart failure type: diastolic Congestive heart failure chronicity: chronic Qualified Code(s): I50.32 - Chronic diastolic ( congestive) heart failure Is this a current diagnosis for this admission?: YesPlan: Hold Torsemide 20 mg qd for now due to worsening renal function.Daily wt; strict input/out put chart; monitor chemistries daily. (10) Acute kidney injury Is this a current diagnosis for this admission?: YesPlan: Ct with IV fluids normal saline at 125 cc/hr; monitor chemistries daily; strict input/out put chart; avoid nephrotoxics. (11) BPH (benign prostatic hyperplasia) Is this a current diagnosis for this admission?: YesPlan: Ct with Terazosin 5 mg daily. (12) Sleep apnea, obstructive Is this a current diagnosis for this admission?: YesPlan: Ct with CPAP at night. (13) Reflux esophagitis Is this a current diagnosis for this admission?: YesPlan: t with Protonix 40 mg qd IV. (14) Gout Is this a current diagnosis for this admission?: YesPlan: Ct with Allopurinol 100 mg qd (15) Vitamin D deficiency Is this a current diagnosis for this admission?: YesPlan: Ct with Vitamin D [id number] weekly. (16) Osteoarthritis Qualifiers: Osteoarthritis location: knee Laterality: bilateral Is this a current diagnosis for this admission?: YesPlan: Ct with Fentanyl patch 25 mcg q72h; Oxycodone 5 mg q6h prn (17) DVT prophylaxis Is this a current diagnosis for this admission?: YesPlan: Ct with Lovenox 30 mg qd subcut; SCD. - Time Time Spent: 30 to 50 Minutes Medications reviewed and adjusted accordingly: Yes Anticipated discharge: Home, Hospice Within: within 72 hours - Inpatient Certification Medical Necessity: Failure to Improve With Outpatient Therapy, Significant Comorbidiites Make Outpatient Treatment Too Risky, Need For IV Fluids, Need for IV Antibiotics
[2017-03-11] MEDS ORDERED: DEXTROSE 40% GEL 15 GM TUBE X 2 PO PRN (17:57)
[2017-03-11] MEDS ORDERED: DEXTROSE 40% GEL 15 GM TUBE PO PRN (17:57)
[2017-03-11] MEDS ORDERED: DEXTROSE 50%-WATER SYRINGE 25 GM/50 ML DOSE IV PRN (17:57)
[2017-03-11] MEDS ORDERED: DEXTROSE 50%-WATER SYRINGE 12.5 GM/25 ML DOSE IV PRN (17:57)
[2017-03-11] MEDS ORDERED: INSULIN LISPRO 100 UNIT/ML 3 ML VIAL SUBCUT PRN (17:57)
[2017-03-11] MEDS ORDERED: GLUCAGON,HUMAN RECOMB 1 MG INJ IM PRN (17:57)
--- NOTE | 2017-03-11 18:23 | EKG REPORT ---
SEVERITY:- ABNORMAL ECG - SINUS RHYTHM VENTRICULAR PREMATURE COMPLEX NONSPECIFIC T ABNORMALITIES, LATERAL LEADS BORDERLINE PROLONGED QT INTERVAL : Confirmed by: Leo Vallejo MD 11-Mar-2017 18:22:47
[2017-03-11] MEDS ORDERED: ENOXAPARIN SODIUM INJ 30 MG/0.3 ML DISP.SYRIN SUBCUT ONE (19:00)
[2017-03-11] MEDS ORDERED: OXYCODONE HCL IR 5 MG TABLET PO SCH (20:00)
[2017-03-11] MEDS ORDERED: METOCLOPRAMIDE HCL 10 MG TABLET PO SCH (21:00)
[2017-03-11] MEDS ORDERED: FUROSEMIDE INJ/PF 20 MG/2 ML SDV IV PRN (21:05)
[2017-03-11] MEDS ORDERED: ONDANSETRON 4 MG TAB.RAPDIS GT PRN (21:09)
[2017-03-11] MEDS ORDERED: HYDRALAZINE HCL 50 MG TABLET PO SCH (22:00)
[2017-03-11] MEDS ORDERED: CARVEDILOL 12.5 MG TABLET PO SCH (22:00)
[2017-03-11] MEDS ORDERED: ATORVASTATIN CALCIUM 40 MG TABLET PO SCH (22:00)
[2017-03-11] MEDS: AZITHROMYCIN 500 MG in DEXTROSE 5%-WATER 250 ML IV SCH (22:57)
[2017-03-11] MEDS: CEFTRIAXONE 1 GM/D5W RTU 1 GM/50 ML RTUPB IV SCH (22:59)
[2017-03-11] MEDS: ATORVASTATIN CALCIUM 40 MG TABLET GT SCH (23:00)
[2017-03-11] MEDS: CARVEDILOL 12.5 MG TABLET GT SCH (23:02)
[2017-03-11] MEDS: HYDRALAZINE HCL 50 MG TABLET GT SCH (23:05)
[2017-03-11] MEDS: OXYCODONE HCL IR 5 MG TABLET GT SCH (23:52)
[2017-03-12] MEDS: INSULIN DETEMIR 100 UNIT/ML 3 ML PEN SUBCUT SCH (00:18)
[2017-03-12] MEDS ORDERED: MORPHINE SULFATE 10 MG/ML INJ INJ PRN (01:21)
[2017-03-12] MEDS: OXYCODONE HCL IR 5 MG TABLET GT SCH ×5 (03:55→21:50)
[2017-03-12] MEDS: METOCLOPRAMIDE HCL 10 MG TABLET GT SCH ×4 (03:56→21:56)
--- NOTE | 2017-03-12 07:57 | PDOC CONSULTATION ---
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, he has had full imaging, he does have a GJ tube, the G-tube has been used to release the gastric contents, the J-tube has been used for feeds, on last hospitalization we had a complete obstruction of the J-tube, we were not able to relieve that obstruction here at [facility], we transitioned him to hospice, the family sought a second opinion at [facility], the [facility] was able to get the J-tube working again, he ultimately saw GI oncology at [facility] who saw patient, did note that the performance status of the patient was borderline for treatment, and recommended dose adjusted FOLFOX, we are planning on initiating the chemotherapy today. But over the last 48 hours he began becoming increasingly more weak and confused, he was very lethargic, ultimately he was brought to the ED, he was found on chest x-ray to have a left lower lobe pneumonia, he was in renal failure, dehydrated, confused. He has been started on aggressive IV hydration, antibiotics for pneumonia, his hemoglobin was 7.6 and he is being transfused 2 units of packed red blood cells. Today he appears very weak. Past Medical History Cardiac Medical History: Reports: Congestive Heart Failure, Hyperlipidema, Hypertension Denies: Coronary Artery Disease, Myocardial Infarction Pulmonary Medical History: Denies: Asthma, Bronchitis, Chronic Obstructive Pulmonary Disease (COPD), Pneumonia Neurological Medical History: Denies: Seizures Endocrine Medical History: Reports: Diabetes Mellitus Type 1, Diabetes Mellitus Type 2 Malignancy Medical History: Reports: Other - Stage IV gastric cancer GI Medical History: Denies: Cirrhosis Musculoskeltal Medical History: Reports: Arthritis - Legs and arms Psychiatric Medical History: Denies: Depression Hematology: Denies: Anemia Past Surgical History Past Surgical History: Reports: Orthopedic Surgery - Left knee and left hip, Other - Recent GJ tube placement, Pleurx catheter in the abdomen Social History Smoking Status: Never Smoker Frequency of Alcohol Use: None Hx Recreational Drug Use: No Drugs: None Hx Prescription Drug Abuse: No - Advance Directive Resuscitation Status: Full Code Family History Family History: None Parental Family History Reviewed: Yes Children Family History Reviewed: Yes Sibling(s) Family History Reviewed.: Yes Medication/Allergy Home Medications: Allopurinol [Zyloprim 100 mg Tablet] 100 mg PO DAILY 03/11/17 Atorvastatin Calcium [Lipitor 40 mg Tablet] 40 mg PO QHS 03/11/17 Carvedilol [Coreg 25 mg Tablet] 25 mg PO Q12 03/11/17 Fentanyl [Duragesic 25 mcg/hr Transdermal Patch] 1 patch TD Q3D 03/11/17 Finasteride [Proscar 5 mg Tablet] 5 mg PO DAILY 03/11/17 Hydralazine HCl [Apresoline 50 mg Tablet] 50 mg PO Q12 03/11/17 Insulin Detemir [Levemir Flextouch] 40 units SQ QHS 03/11/17 Isosorbide Mononitrate [Imdur 30 mg Tablet.er] 30 mg PO DAILY 03/11/17 Losartan Potassium [Cozaar 25 mg Tablet] 25 mg PO DAILY 03/11/17 Metoclopramide HCl [Reglan] 5 mg PO Q6 03/11/17 Omeprazole 20 mg PO DAILY 03/11/17 Ondansetron [Zofran Odt 4 mg Tablet] 4 mg PO Q4HP PRN 03/11/17 Oxycodone HCl [Oxy-Ir 5 mg Tablet] 5 mg PO Q4 03/11/17 Oxycodone HCl/Acetaminophen [Percocet 5-325 mg Tablet] 1 tab PO BID 03/11/17 Promethazine HCl [Phenergan 25 mg Supp.rect] 25 mg ND Q4HP PRN 03/11/17 Terazosin HCl [Hytrin] 5 mg PO DAILY 03/11/17 Torsemide [Demadex 20 mg Tablet] 20 mg PO DAILY 03/11/17 Allergies/Adverse Reactions: Shellfish * Adverse Reaction (Mild, Verified 02/26/17 18:11) GOUT Review of Systems ROS unobtainable: Due to mental status Physical Exam Vital Signs: Temp Pulse Resp BP Pulse Ox 99.0 F 72 16 98/39 L 98 03/12/17 06:26 03/12/17 06:26 03/12/17 06:26 03/12/17 06:26 03/12/17 06:26 Intake & Output 03/11/17 03/12/17 03/13/17 06:59 06:59 06:59 Intake Total 350 Balance 350 Weight 81.647 kg General appearance: PRESENT: no acute distress Head exam: PRESENT: atraumatic Mouth exam: PRESENT: dry mucosa Respiratory exam: PRESENT: clear to auscultation chris. ABSENT: rales, rhonchi, wheezes GI/Abdominal exam: PRESENT: diminished bowel sounds, distended Rectal exam: PRESENT: deferred Neurological exam: PRESENT: altered Results Laboratory Results: 03/11/17 03/11/17 19:22 21:44 Lactic Acid 1.1 Blood Type O POSITIVE Antibody Screen NEGATIVE Impressions: Chest X-Ray 03/11/17 13:50 IMPRESSION: 1. Cardiomegaly without CHF. 2. Left lower lobe pneumonia. Head CT 03/11/17 13:51 IMPRESSION: MILD CHRONIC CHANGES OF ATROPHY AND MICROVASCULAR ISCHEMIA. NO ACUTE PROCESS. 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 (2) Acute kidney injury Is this a current diagnosis for this admission?: YesPlan: Secondary to dehydration, continue with hydration as well as blood products will help this (3) Gastric outlet obstruction Is this a current diagnosis for this admission?: YesPlan: He is on a regimen of G-tube release 4 times a day of 2-300 cc, he is getting J- tube feeds at 65 cc/h, Pleurx catheter in the abdomen is attempting to be drained but less and less drainage every day. This regimen will continue here. No other intervention possible. (4) Pain, neoplasm-related Is this a current diagnosis for this admission?: YesPlan: Continue with current pain regimen, he is on fentanyl and oxycodone, I have added morphine in case he cannot have the oxycodone. - Time Time Spent: Greater than 70 Minutes Critical Time spent with patient: 35 or more minutes - Inpatient Certification Based on my medical assessment, after consideration of the patient's comorbidities, presenting symptoms, or acuity I expect that the services needed warrant INPATIENT care.: Yes I certify that my determination is in accordance with my understanding of Medicare's requirements for reasonable and necessary INPATIENT services [42 CFR 412.3e].: Yes Medical Necessity: Failure to Improve With Outpatient Therapy, Need For IV Fluids, Need For Continuous Telemetry Monitoring, Need for IV Antibiotics, Risk of Complication if Not Cared For in Hospital
[2017-03-12] MEDS ORDERED: INSULIN LISPRO 100 UNIT/ML 3 ML VIAL SUBCUT SCH (08:00)
[2017-03-12] MEDS ORDERED: FUROSEMIDE INJ/PF 20 MG/2 ML SDV IV PRN (09:36)
[2017-03-12] MEDS ORDERED: FINASTERIDE 5 MG TABLET PO SCH (10:00)
[2017-03-12] MEDS ORDERED: LOSARTAN POTASSIUM 25 MG TABLET PO SCH (10:00)
[2017-03-12] MEDS ORDERED: FENTANYL 25 MCG/HR PATCH.TD72 TD SCH (10:00)
[2017-03-12] MEDS ORDERED: ALLOPURINOL 100 MG TABLET PO SCH (10:00)
[2017-03-12] MEDS ORDERED: DOXAZOSIN MESYLATE 4 MG TABLET PO SCH (10:00)
[2017-03-12] MEDS ORDERED: (PENDING PHARMACY ID) (Terazosin Hcl [Hytrin] 5 MG) PO SCH (10:00)
[2017-03-12] MEDS ORDERED: ISOSORBIDE MONONITRATE 30 MG TAB.ER.24H PO SCH (10:00)
[2017-03-12] MEDS: HYDRALAZINE HCL 50 MG TABLET GT SCH ×2 (11:58→21:53)
[2017-03-12] MEDS: LOSARTAN POTASSIUM 25 MG TABLET GT SCH (11:58)
[2017-03-12] MEDS: CARVEDILOL 12.5 MG TABLET GT SCH ×2 (11:59→21:53)
[2017-03-12] MEDS: DOXAZOSIN MESYLATE 4 MG TABLET GT SCH (11:59)
[2017-03-12] MEDS: ALLOPURINOL 100 MG TABLET GT SCH (11:59)
[2017-03-12] MEDS: ENOXAPARIN SODIUM INJ 30 MG/0.3 ML DISP.SYRIN SUBCUT SCH (12:00)
[2017-03-12] MEDS: PANTOPRAZOLE SODIUM 40 MG VIAL IV SCH (12:00)
[2017-03-12 12:05] LABS: ABSOLUTE BASOPHILS # (AUTO) 0.1 10^3/uL (0.0-0.2); ABSOLUTE EOSINOPHILS # (AUTO) 0.1 10^3/uL (0.0-0.6); ABSOLUTE LYMPHOCYTES (AUTO) 1.4 10^3/uL (0.5-4.7); ABSOLUTE MONOCYTES (AUTO) 0.8 10^3/uL (0.1-1.4); BASOPHILS % (AUTO) 0.9 % (0-2); EOSINOPHILS % (AUTO) 1.6 % (0-6); HEMATOCRIT 29.5 % (37.9-51.0); HEMOGLOBIN 9.6 g/dL (13.5-17.0); HGB HCT DIFFERENCE -0.7; LYMPHOCYTES % (AUTO) 15.1 % (13-45); MEAN CORPUSCULAR HGB CONC 32.4 g/dL (32.0-36.0); MEAN CORPUSCULAR VOLUME 90 fl (80-97); MONOCYTES % (AUTO) 8.3 % (3-13); RED CELL DISTRIBUTION WIDTH 16.8 % (11.5-14.0); SEGMENTED NEUTROPHILS % (AUTO) 74.1 % (42-78); WHITE BLOOD COUNT 9.4 10^3/uL (4.0-10.5)
[2017-03-12 12:25] LABS: ALANINE AMINOTRANSFERASE 33 U/L (21-72); ALBUMIN 2.5 g/dL (3.5-5.0); ALKALINE PHOSPHATASE 318 U/L (38-126); ASPARTATE AMINO TRANSFERASE 43 U/L (17-59); BILIRUBIN,DIRECT 0.6 mg/dL (0.0-0.4); BILIRUBIN,TOTAL 0.9 mg/dL (0.2-1.3); BLOOD UREA NITROGEN 46 mg/dL (7-20); CALCIUM 7.6 mg/dL (8.4-10.2); CHLORIDE 78 mmol/L (98-107); CREATININE RESULT 1.73 mg/dL (0.52-1.25); GLUCOSE 132 mg/dL (75-110); SODIUM 140.7 mmol/L (137-145)
[2017-03-12 12:35] LABS: ANION GAP 12 (5-19)
[2017-03-12 12:51] LABS: CARBON DIOXIDE 51 mmol/L (22-30)
[2017-03-12] MEDS: POTASSIUM CHLORIDE 20 MEQ/50 ML RTU IV SCH ×2 (14:06→15:31)
--- NOTE | 2017-03-12 17:11 | PDOC PROGRESS REPORT ---
Subjective Progress Note for:: 03/12/17 Subjective:: He is weak and tired; got 2 units of PRBC and post transfusion HB/HCT is 9.6/ 29.5; His potassium was 3.0 and he is getting replacement. He was seen by oncologist, Dr Deras and we appreciate his input in management of this pt. I had a lengthy discussion with one of pt's daughter, Ms Hammond yesterday night about the plan of care and prognosis and answered all her questions. We will defer all issues regarding the gastric cancer mgt to oncologist, Dr Deras. Physical Exam Vital Signs: Temp Pulse Resp BP Pulse Ox 97.9 F 82 19 119/44 L 100 03/12/17 16:00 03/12/17 16:00 03/12/17 16:00 03/12/17 16:00 03/12/17 16:00 Intake & Output 03/11/17 03/12/17 03/13/17 06:59 06:59 06:59 Intake Total 885 470 Output Total 1000 200 Balance -115 270 Weight 83.7 kg General appearance: PRESENT: no acute distress, cooperative, morbidly obese, well-nourished Head exam: PRESENT: atraumatic, normocephalic Eye exam: PRESENT: EOMI, PERRLA Ear exam: PRESENT: normal external ear exam, TM's normal bilaterally Mouth exam: PRESENT: tongue midline Respiratory exam: PRESENT: crackles, decreased breath sounds Cardiovascular exam: PRESENT: +S1, +S2 Pulses: PRESENT: +1 pedal pulses bilateral GI/Abdominal exam: PRESENT: ascites, distended, mass, normal bowel sounds Rectal exam: PRESENT: deferred Neurological exam: PRESENT: alert, awake, oriented to person, oriented to place Psychiatric exam: PRESENT: depressed Results Laboratory Results: 03/12/17 11:38 03/12/17 11:38 03/11/17 03/11/17 03/12/17 19:22 21:44 11:38 WBC 9.4 RBC 3.30 L Hgb 9.6 L Hct 29.5 L MCV 90 MCH 29.0 MCHC 32.4 RDW 16.8 H Plt Count 216 Seg Neutrophils % 74.1 Lymphocytes % 15.1 Monocytes % 8.3 Eosinophils % 1.6 Basophils % 0.9 Absolute Neutrophils 7.0 Absolute Lymphocytes 1.4 Absolute Monocytes 0.8 Absolute Eosinophils 0.1 Absolute Basophils 0.1 Sodium Potassium Chloride Carbon Dioxide Anion Gap BUN Creatinine Est GFR ( Amer) Est GFR (Non-Af Amer) Glucose Lactic Acid 1.1 Calcium Total Bilirubin AST ALT Alkaline Phosphatase Total Protein Albumin Blood Type O POSITIVE Antibody Screen NEGATIVE 03/12/17 11:38 WBC RBC Hgb Hct MCV MCH MCHC RDW Plt Count Seg Neutrophils % Lymphocytes % Monocytes % Eosinophils % Basophils % Absolute Neutrophils Absolute Lymphocytes Absolute Monocytes Absolute Eosinophils Absolute Basophils Sodium 140.7 Potassium 3.0 L* Chloride 78 L Carbon Dioxide 51 H* Anion Gap 12 BUN 46 H Creatinine 1.73 H Est GFR ( Amer) 47 L Est GFR (Non-Af Amer) 39 L Glucose 132 H Lactic Acid Calcium 7.6 L Total Bilirubin 0.9 AST 43 ALT 33 Alkaline Phosphatase 318 H Total Protein 6.0 L Albumin 2.5 L Blood Type Antibody Screen Impressions: Chest X-Ray 03/11/17 13:50 IMPRESSION: 1. Cardiomegaly without CHF. 2. Left lower lobe pneumonia. Head CT 03/11/17 13:51 IMPRESSION: MILD CHRONIC CHANGES OF ATROPHY AND MICROVASCULAR ISCHEMIA. NO ACUTE PROCESS. Assessment & Plan - Diagnosis (1) LLL pneumonia Qualifiers: Pneumonia type: due to unspecified organism Qualified Code(s): J18.1 - Lobar pneumonia, unspecified organism Is this a current diagnosis for this admission?: YesPlan: Ct with Rocephin 1 G daily IV; Azithromycin 1 G daily IV; Tylenol 650 mg q6h prn ; Ct with BIPAP and oxygen by N/C 2 L/Ni to keep saturation >92%.F/u Blood cultures and sputum cultures. (2) Sepsis Qualifiers: Sepsis type: sepsis due to unspecified organism Qualified Code(s): A41.9 - Sepsis, unspecified organism Is this a current diagnosis for this admission?: YesPlan: Ct with Rocephin 1 G daily IV; Azithromycin 500 mg daily IV; Tyllenol 650 mg q6h prn; IV fluids normal saline at 125 cc/hr; BIPAP and oxygen 2 L/min to keep saturation >92%. F/u Blood and sputum cultures. (3) Metabolic alkalosis Is this a current diagnosis for this admission?: YesPlan: Ct with IV fluids normal saline at 125 cc/hr; monitor chemistries daily. (4) Acute kidney injury Is this a current diagnosis for this admission?: YesPlan: Ct with IV fluids normal saline at 125 cc/hr; monitor chemistries daily; strict input/out put chart; avoid nephrotoxics. (5) Anemia Qualifiers: Anemia type: unspecified type Qualified Code(s): D64.9 - Anemia, unspecified Is this a current diagnosis for this admission?: YesPlan: He is s.p transfusion of 2 units of PRBC; monitor CBC daily. (6) Diabetes mellitus Qualifiers: Diabetes mellitus type: type 2 Is this a current diagnosis for this admission?: YesPlan: Ct with Levemir 40 units qhs subcut; Slidding scale with humalog insulin, COUNT INCLUDES THE [facility] protocol; accucheck Q6H. (7) Hypertension Qualifiers: Hypertension type: essential hypertension Qualified Code(s): I10 - Essential (primary) hypertension Is this a current diagnosis for this admission?: YesPlan: Ct with Coreg 25 mg BID; Losartan 25 mg qd; Hydralazine 50 mg TID; Ismo 30 mg qd. (8) Intractable vomiting with nausea Qualifiers: Vomiting type: unspecified Qualified Code(s): R11.2 - Nausea with vomiting, unspecified Is this a current diagnosis for this admission?: YesPlan: Ct with Promethazine suppository 25 mg q6h prn ; Reglan 5 mg q6h prn; Zofran 4 mg q4h prn . 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 (10) Congestive heart failure Qualifiers: Congestive heart failure type: diastolic Congestive heart failure chronicity: chronic Qualified Code(s): I50.32 - Chronic diastolic ( congestive) heart failure Is this a current diagnosis for this admission?: YesPlan: Hold Torsemide 20 mg qd for now due to worsening renal function.Daily wt; strict input/out put chart; monitor chemistries daily. (11) BPH (benign prostatic hyperplasia) Is this a current diagnosis for this admission?: YesPlan: Ct with Terazosin 5 mg daily. (12) Sleep apnea, obstructive Is this a current diagnosis for this admission?: YesPlan: Ct with CPAP at night. (13) Reflux esophagitis Is this a current diagnosis for this admission?: YesPlan: t with Protonix 40 mg qd IV. (14) Gout Is this a current diagnosis for this admission?: YesPlan: Ct with Allopurinol 100 mg qd (15) Vitamin D deficiency Is this a current diagnosis for this admission?: YesPlan: Ct with Vitamin D 33811fx weekly. (16) Osteoarthritis Qualifiers: Osteoarthritis location: knee Laterality: bilateral Is this a current diagnosis for this admission?: YesPlan: Ct with Fentanyl patch 25 mcg q72h; Oxycodone 5 mg q6h prn (17) DVT prophylaxis Is this a current diagnosis for this admission?: YesPlan: Ct with Lovenox 30 mg qd subcut; SCD. (18) Gastric outlet obstruction Is this a current diagnosis for this admission?: YesPlan: This is due to stage [address] with present mgt. F/u with Dr Deras.
[2017-03-12] MEDS: POTASSI CL 20 MEQ/NS 1L 1,000 ML IV PRN (17:44)
[2017-03-12] MEDS: CEFTRIAXONE 1 GM/D5W RTU 1 GM/50 ML RTUPB IV SCH (21:52)
[2017-03-12] MEDS: ATORVASTATIN CALCIUM 40 MG TABLET GT SCH (21:52)
[2017-03-12] MEDS: AZITHROMYCIN 500 MG in DEXTROSE 5%-WATER 250 ML IV SCH (21:58)
[2017-03-13] MEDS: INSULIN DETEMIR 100 UNIT/ML 3 ML PEN SUBCUT SCH (00:30)
[2017-03-13] MEDS: OXYCODONE HCL IR 5 MG TABLET GT SCH ×2 (00:33→03:59)
[2017-03-13] MEDS: METOCLOPRAMIDE HCL 10 MG TABLET GT SCH ×4 (03:58→23:19)
[2017-03-13] MEDS: POTASSI CL 20 MEQ/NS 1L 1,000 ML IV PRN ×2 (05:10→13:44)
[2017-03-13 05:27] LABS: ABSOLUTE EOSINOPHILS # (AUTO) 0.2 10^3/uL (0.0-0.6); ABSOLUTE LYMPHOCYTES (AUTO) 1.6 10^3/uL (0.5-4.7); ABSOLUTE MONOCYTES (AUTO) 0.9 10^3/uL (0.1-1.4); ABSOLUTE NEUT (AUTO) 7.6 10^3/uL (1.7-8.2); BASOPHILS % (AUTO) 0.5 % (0-2); EOSINOPHILS % (AUTO) 1.8 % (0-6); HEMATOCRIT 27.9 % (37.9-51.0); HEMOGLOBIN 9.1 g/dL (13.5-17.0); HGB HCT DIFFERENCE -0.6; LYMPHOCYTES % (AUTO) 15.4 % (13-45); MEAN CORPUSCULAR HEMOGLOBIN 29.2 pg (27.0-33.4); MEAN CORPUSCULAR HGB CONC 32.6 g/dL (32.0-36.0); MEAN CORPUSCULAR VOLUME 90 fl (80-97); MONOCYTES % (AUTO) 8.9 % (3-13); RED BLOOD COUNT 3.11 10^6/uL (4.35-5.55); RED CELL DISTRIBUTION WIDTH 16.7 % (11.5-14.0); SEGMENTED NEUTROPHILS % (AUTO) 73.4 % (42-78); WHITE BLOOD COUNT 10.4 10^3/uL (4.0-10.5)
[2017-03-13 05:47] LABS: ALANINE AMINOTRANSFERASE 32 U/L (21-72); ALBUMIN 2.5 g/dL (3.5-5.0); ALKALINE PHOSPHATASE 357 U/L (38-126); ASPARTATE AMINO TRANSFERASE 50 U/L (17-59); BILIRUBIN,DIRECT 0.5 mg/dL (0.0-0.4); BILIRUBIN,TOTAL 0.7 mg/dL (0.2-1.3); BLOOD UREA NITROGEN 46 mg/dL (7-20); CALCIUM 7.7 mg/dL (8.4-10.2); CHLORIDE 83 mmol/L (98-107); CREATININE RESULT 1.79 mg/dL (0.52-1.25); GLUCOSE 153 mg/dL (75-110); POTASSIUM 3.5 mmol/L (3.6-5.0); SODIUM 141.7 mmol/L (137-145); TOTAL PROTEIN 6.3 g/dL (6.3-8.2)
[2017-03-13 05:58] LABS: ANION GAP 11 (5-19)
[2017-03-13 06:03] LABS: CARBON DIOXIDE 48 mmol/L (22-30)
--- NOTE | 2017-03-13 08:30 | PDOC PROGRESS REPORT ---
Subjective Progress Note for:: 03/13/17 Subjective:: No acute events overnight, pt feeling better this am, today had long discussion w/ daughters Hoang and Pina, and pt, told them he is not a candidate for chemo and active therapy, recommended DNR and hospice, discussed end of life issues at length, family is ready to accept hospice, pt and family would like to go tomorrow w/ hospice, I have contacted community hospice to restart services tomorrow. Physical Exam Vital Signs: Temp Pulse Resp BP Pulse Ox 98.6 F 78 20 106/71 99 03/13/17 03:38 03/13/17 03:38 03/13/17 03:38 03/13/17 03:38 03/13/17 03:38 Intake & Output 03/12/17 03/13/17 03/14/17 06:59 06:59 06:59 Intake Total 885 4531 Output Total 1000 715 Balance -115 3816 Weight 83.7 kg General appearance: PRESENT: no acute distress, well-developed, well-nourished Head exam: PRESENT: atraumatic, normocephalic Eye exam: PRESENT: conjunctiva pink, EOMI, PERRLA. ABSENT: scleral icterus Ear exam: PRESENT: normal external ear exam Mouth exam: PRESENT: moist, tongue midline Neck exam: ABSENT: carotid bruit, JVD, lymphadenopathy, thyromegaly Respiratory exam: PRESENT: clear to auscultation chris. ABSENT: rales, rhonchi, wheezes Cardiovascular exam: PRESENT: RRR. ABSENT: diastolic murmur, rubs, systolic murmur Pulses: PRESENT: normal dorsalis pedis pul Vascular exam: PRESENT: normal capillary refill GI/Abdominal exam: PRESENT: normal bowel sounds, soft. ABSENT: distended, guarding, mass, organolmegaly, rebound, tenderness Rectal exam: PRESENT: deferred Extremities exam: PRESENT: full ROM. ABSENT: calf tenderness, clubbing, pedal edema Neurological exam: PRESENT: alert, awake, oriented to person, oriented to place , oriented to time, oriented to situation, CN II-XII grossly intact. ABSENT: motor sensory deficit Psychiatric exam: PRESENT: appropriate affect, normal mood. ABSENT: homicidal ideation, suicidal ideation Skin exam: PRESENT: dry, intact, warm. ABSENT: cyanosis, rash Results Laboratory Results: 03/13/17 04:55 03/13/17 04:55 03/11/17 03/12/17 03/12/17 21:44 11:38 11:38 WBC 9.4 RBC 3.30 L Hgb 9.6 L Hct 29.5 L MCV 90 MCH 29.0 MCHC 32.4 RDW 16.8 H Plt Count 216 Seg Neutrophils % 74.1 Lymphocytes % 15.1 Monocytes % 8.3 Eosinophils % 1.6 Basophils % 0.9 Absolute Neutrophils 7.0 Absolute Lymphocytes 1.4 Absolute Monocytes 0.8 Absolute Eosinophils 0.1 Absolute Basophils 0.1 Sodium 140.7 Potassium 3.0 L* Chloride 78 L Carbon Dioxide 51 H* Anion Gap 12 BUN 46 H Creatinine 1.73 H Est GFR ( Amer) 47 L Est GFR (Non-Af Amer) 39 L Glucose 132 H Calcium 7.6 L Total Bilirubin 0.9 AST 43 ALT 33 Alkaline Phosphatase 318 H Total Protein 6.0 L Albumin 2.5 L Blood Type O POSITIVE Antibody Screen NEGATIVE 03/13/17 03/13/17 04:55 04:55 WBC 10.4 RBC 3.11 L Hgb 9.1 L Hct 27.9 L MCV 90 MCH 29.2 MCHC 32.6 RDW 16.7 H Plt Count 217 Seg Neutrophils % 73.4 Lymphocytes % 15.4 Monocytes % 8.9 Eosinophils % 1.8 Basophils % 0.5 Absolute Neutrophils 7.6 Absolute Lymphocytes 1.6 Absolute Monocytes 0.9 Absolute Eosinophils 0.2 Absolute Basophils 0.0 Sodium 141.7 Potassium 3.5 L Chloride 83 L Carbon Dioxide 48 H* Anion Gap 11 BUN 46 H Creatinine 1.79 H Est GFR ( Amer) 45 L Est GFR (Non-Af Amer) 37 L Glucose 153 H Calcium 7.7 L Total Bilirubin 0.7 AST 50 ALT 32 Alkaline Phosphatase 357 H Total Protein 6.3 Albumin 2.5 L Blood Type Antibody Screen Impressions: Chest X-Ray 03/11/17 13:50 IMPRESSION: 1. Cardiomegaly without CHF. 2. Left lower lobe pneumonia. Head CT 03/11/17 13:51 IMPRESSION: MILD CHRONIC CHANGES OF ATROPHY AND MICROVASCULAR ISCHEMIA. NO ACUTE PROCESS. 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
[2017-03-13] MEDS: PANTOPRAZOLE SODIUM 40 MG VIAL IV SCH (10:37)
[2017-03-13] MEDS: ALLOPURINOL 100 MG TABLET GT SCH (10:37)
[2017-03-13] MEDS: HYDRALAZINE HCL 50 MG TABLET GT SCH ×2 (10:38→23:20)
[2017-03-13] MEDS: ENOXAPARIN SODIUM INJ 30 MG/0.3 ML DISP.SYRIN SUBCUT SCH (10:38)
[2017-03-13] MEDS: CARVEDILOL 12.5 MG TABLET GT SCH ×2 (10:38→23:19)
[2017-03-13] MEDS: LOSARTAN POTASSIUM 25 MG TABLET GT SCH (10:38)
[2017-03-13] MEDS: DOXAZOSIN MESYLATE 4 MG TABLET GT SCH (10:38)
--- NOTE | 2017-03-13 13:26 | PDOC PROGRESS REPORT ---
Subjective Progress Note for:: 03/13/17 Subjective:: He is weak and tired; got 2 units of PRBC and post transfusion HB/HCT is 9.6/ 29.5; His potassium was 3.0 and he is getting replacement. He was seen by oncologist, Dr Deras and we appreciate his input in management of this pt. I had a lengthy discussion with one of pt's daughter, Ms Hammond yesterday night about the plan of care and prognosis and answered all her questions. We will defer all issues regarding the gastric cancer mgt to oncologist, Dr Deras. The family( patient and 2 daughters) had a meeting with Dr Deras today and agreed on hospice and DNR and they requested [facility] We will discharge him tomorrow as requested. Physical Exam Vital Signs: Temp Pulse Resp BP Pulse Ox 98.4 F 77 19 104/55 L 100 03/13/17 11:12 03/13/17 11:12 03/13/17 11:12 03/13/17 11:12 03/13/17 11:12 Intake & Output 03/12/17 03/13/17 03/14/17 06:59 06:59 06:59 Intake Total 885 4531 0 Output Total 1000 715 150 Balance -115 3816 -150 Weight 83.7 kg General appearance: PRESENT: no acute distress, cooperative, morbidly obese, well-nourished Eye exam: PRESENT: EOMI, PERRLA Mouth exam: PRESENT: neck supple, tongue midline Respiratory exam: PRESENT: crackles, decreased breath sounds Cardiovascular exam: PRESENT: +S1, +S2 Pulses: PRESENT: +1 pedal pulses bilateral GI/Abdominal exam: PRESENT: ascites, distended, mass, soft Rectal exam: PRESENT: deferred Neurological exam: PRESENT: alert, awake, oriented to person, oriented to place Psychiatric exam: PRESENT: depressed Results Laboratory Results: 03/13/17 04:55 03/13/17 04:55 03/13/17 03/13/17 04:55 04:55 WBC 10.4 RBC 3.11 L Hgb 9.1 L Hct 27.9 L MCV 90 MCH 29.2 MCHC 32.6 RDW 16.7 H Plt Count 217 Seg Neutrophils % 73.4 Lymphocytes % 15.4 Monocytes % 8.9 Eosinophils % 1.8 Basophils % 0.5 Absolute Neutrophils 7.6 Absolute Lymphocytes 1.6 Absolute Monocytes 0.9 Absolute Eosinophils 0.2 Absolute Basophils 0.0 Sodium 141.7 Potassium 3.5 L Chloride 83 L Carbon Dioxide 48 H* Anion Gap 11 BUN 46 H Creatinine 1.79 H Est GFR ( Amer) 45 L Est GFR (Non-Af Amer) 37 L Glucose 153 H Calcium 7.7 L Total Bilirubin 0.7 AST 50 ALT 32 Alkaline Phosphatase 357 H Total Protein 6.3 Albumin 2.5 L Impressions: Chest X-Ray 03/11/17 13:50 IMPRESSION: 1. Cardiomegaly without CHF. 2. Left lower lobe pneumonia. Head CT 03/11/17 13:51 IMPRESSION: MILD CHRONIC CHANGES OF ATROPHY AND MICROVASCULAR ISCHEMIA. NO ACUTE PROCESS. Assessment & Plan - Diagnosis (1) LLL pneumonia Qualifiers: Pneumonia type: due to unspecified organism Qualified Code(s): J18.1 - Lobar pneumonia, unspecified organism Is this a current diagnosis for this admission?: YesPlan: Ct with Rocephin 1 G daily IV; Azithromycin 1 G daily IV; Tylenol 650 mg q6h prn ; Ct with BIPAP and oxygen by N/C 2 L/Ni to keep saturation >92%.F/u Blood cultures and sputum cultures. (2) Sepsis Qualifiers: Sepsis type: sepsis due to unspecified organism Qualified Code(s): A41.9 - Sepsis, unspecified organism Is this a current diagnosis for this admission?: YesPlan: Ct with Rocephin 1 G daily IV; Azithromycin 500 mg daily IV; Tyllenol 650 mg q6h prn; IV fluids normal saline at 125 cc/hr; BIPAP and oxygen 2 L/min to keep saturation >92%. F/u Blood and sputum cultures. (3) Metabolic alkalosis Is this a current diagnosis for this admission?: YesPlan: Ct with IV fluids normal saline at 125 cc/hr; monitor chemistries daily. (4) Acute kidney injury Is this a current diagnosis for this admission?: YesPlan: Ct with IV fluids normal saline at 125 cc/hr; monitor chemistries daily; strict input/out put chart; avoid nephrotoxics. (5) Anemia Qualifiers: Anemia type: unspecified type Qualified Code(s): D64.9 - Anemia, unspecified Is this a current diagnosis for this admission?: YesPlan: He is s.p transfusion of 2 units of PRBC; monitor CBC daily. (6) Diabetes mellitus Qualifiers: Diabetes mellitus type: type 2 Is this a current diagnosis for this admission?: YesPlan: Ct with Levemir 40 units qhs subcut; Slidding scale with humalog insulin, [facility] protocol; accucheck Q6H. (7) Hypertension Qualifiers: Hypertension type: essential hypertension Qualified Code(s): I10 - Essential (primary) hypertension Is this a current diagnosis for this admission?: YesPlan: Ct with Coreg 25 mg BID; Losartan 25 mg qd; Hydralazine 50 mg TID; Ismo 30 mg qd. (8) Intractable vomiting with nausea Qualifiers: Vomiting type: unspecified Qualified Code(s): R11.2 - Nausea with vomiting, unspecified Is this a current diagnosis for this admission?: YesPlan: Ct with Promethazine suppository 25 mg q6h prn ; Reglan 5 mg q6h prn; Zofran 4 mg q4h prn . 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 (10) Congestive heart failure Qualifiers: Congestive heart failure type: diastolic Congestive heart failure chronicity: chronic Qualified Code(s): I50.32 - Chronic diastolic ( congestive) heart failure Is this a current diagnosis for this admission?: YesPlan: Hold Torsemide 20 mg qd for now due to worsening renal function.Daily wt; strict input/out put chart; monitor chemistries daily. (11) BPH (benign prostatic hyperplasia) Is this a current diagnosis for this admission?: YesPlan: Ct with Terazosin 5 mg daily. (12) Sleep apnea, obstructive Is this a current diagnosis for this admission?: YesPlan: Ct with CPAP at night. (13) Reflux esophagitis Is this a current diagnosis for this admission?: YesPlan: t with Protonix 40 mg qd IV. (14) Gout Is this a current diagnosis for this admission?: YesPlan: Ct with Allopurinol 100 mg qd (15) Vitamin D deficiency Is this a current diagnosis for this admission?: YesPlan: Ct with Vitamin D 81935tn weekly. (16) Osteoarthritis Qualifiers: Osteoarthritis location: knee Laterality: bilateral Is this a current diagnosis for this admission?: YesPlan: Ct with Fentanyl patch 25 mcg q72h; Oxycodone 5 mg q6h prn (17) DVT prophylaxis Is this a current diagnosis for this admission?: YesPlan: Ct with Lovenox 30 mg qd subcut; SCD. (18) Gastric outlet obstruction Is this a current diagnosis for this admission?: YesPlan: This is due to stage [address] with present mgt. F/u with Dr Deras. - Time Time Spent with patient: 35 or more minutes Anticipated discharge: Home, Hospice Within: within 24 hours
[2017-03-13] MEDS ORDERED: ONDANSETRON 4 MG TAB.RAPDIS GT PRN (14:02)
[2017-03-13] MEDS: POTASSI CL 20 MEQ/D5NS 1L 1000 ML IV PRN (20:11)
[2017-03-13] MEDS: MORPHINE SULFATE 10 MG/ML INJ INJ SCH (20:45)
[2017-03-13] MEDS ORDERED: INSULIN DETEMIR 100 UNIT/ML 3 ML PEN SUBCUT SCH (22:00)
[2017-03-13] MEDS: ATORVASTATIN CALCIUM 40 MG TABLET GT SCH (23:19)
[2017-03-13] MEDS: CEFTRIAXONE 1 GM/D5W RTU 1 GM/50 ML RTUPB IV SCH (23:20)
[2017-03-14] MEDS: MORPHINE SULFATE 10 MG/ML INJ INJ SCH (00:51)
[2017-03-14] MEDS ORDERED: AZITHROMYCIN INJ 500 MG VIAL IV ONE (03:57)
[2017-03-14] MEDS: AZITHROMYCIN 500 MG in DEXTROSE 5%-WATER 250 ML IV SCH (04:23)
[2017-03-14] MEDS: METOCLOPRAMIDE HCL 10 MG TABLET GT SCH ×2 (04:34→10:59)
[2017-03-14 04:38] LABS: ABSOLUTE BASOPHILS # (AUTO) 0.1 10^3/uL (0.0-0.2); ABSOLUTE EOSINOPHILS # (AUTO) 0.2 10^3/uL (0.0-0.6); ABSOLUTE LYMPHOCYTES (AUTO) 1.5 10^3/uL (0.5-4.7); ABSOLUTE NEUT (AUTO) 6.5 10^3/uL (1.7-8.2); BASOPHILS % (AUTO) 0.6 % (0-2); EOSINOPHILS % (AUTO) 1.8 % (0-6); HEMATOCRIT 27.1 % (37.9-51.0); HGB HCT DIFFERENCE -0.1; LYMPHOCYTES % (AUTO) 16.3 % (13-45); MEAN CORPUSCULAR HEMOGLOBIN 30.3 pg (27.0-33.4); MEAN CORPUSCULAR HGB CONC 33.2 g/dL (32.0-36.0); MEAN CORPUSCULAR VOLUME 91 fl (80-97); MONOCYTES % (AUTO) 10.7 % (3-13); RED BLOOD COUNT 2.97 10^6/uL (4.35-5.55); RED CELL DISTRIBUTION WIDTH 17.1 % (11.5-14.0); SEGMENTED NEUTROPHILS % (AUTO) 70.6 % (42-78); WHITE BLOOD COUNT 9.2 10^3/uL (4.0-10.5)
[2017-03-14 05:02] LABS: ALANINE AMINOTRANSFERASE 32 U/L (21-72); ALBUMIN 2.3 g/dL (3.5-5.0); ALKALINE PHOSPHATASE 316 U/L (38-126); ASPARTATE AMINO TRANSFERASE 46 U/L (17-59); BILIRUBIN,DIRECT 0.5 mg/dL (0.0-0.4); BILIRUBIN,TOTAL 0.6 mg/dL (0.2-1.3); BLOOD UREA NITROGEN 37 mg/dL (7-20); CALCIUM 7.7 mg/dL (8.4-10.2); CHLORIDE 92 mmol/L (98-107); CREATININE RESULT 1.48 mg/dL (0.52-1.25); GLUCOSE 198 mg/dL (75-110); POTASSIUM 4.3 mmol/L (3.6-5.0); SODIUM 143.8 mmol/L (137-145); TOTAL PROTEIN 5.9 g/dL (6.3-8.2)
[2017-03-14 05:12] LABS: ANION GAP 6 (5-19)
[2017-03-14 05:19] LABS: CARBON DIOXIDE 46 mmol/L (22-30)
[2017-03-14] MEDS: POTASSI CL 20 MEQ/D5NS 1L 1000 ML IV PRN (05:35)
--- NOTE | 2017-03-14 07:57 | PDOC PROGRESS REPORT ---
Subjective Progress Note for:: 03/14/17 Subjective:: Pt had a rough night, jtube became clogged, was unclogged by soda, very tired this am Physical Exam Vital Signs: Temp Pulse Resp BP Pulse Ox 98.8 F 93 18 139/46 H 98 03/14/17 03:56 03/14/17 03:56 03/14/17 03:56 03/14/17 03:56 03/14/17 03:56 Intake & Output 03/13/17 03/14/17 03/15/17 06:59 06:59 06:59 Intake Total 4531 2405 Output Total 715 1450 Balance 3816 955 Weight 83.7 kg Results Laboratory Results: 03/14/17 04:22 03/14/17 04:22 03/14/17 03/14/17 04:22 04:22 WBC 9.2 RBC 2.97 L Hgb 9.0 L Hct 27.1 L MCV 91 MCH 30.3 MCHC 33.2 RDW 17.1 H Plt Count 193 Seg Neutrophils % 70.6 Lymphocytes % 16.3 Monocytes % 10.7 Eosinophils % 1.8 Basophils % 0.6 Absolute Neutrophils 6.5 Absolute Lymphocytes 1.5 Absolute Monocytes 1.0 Absolute Eosinophils 0.2 Absolute Basophils 0.1 Sodium 143.8 Potassium 4.3 Chloride 92 L Carbon Dioxide 46 H* Anion Gap 6 BUN 37 H Creatinine 1.48 H Est GFR ( Amer) 56 L Est GFR (Non-Af Amer) 46 L Glucose 198 H Calcium 7.7 L Total Bilirubin 0.6 AST 46 ALT 32 Alkaline Phosphatase 316 H Total Protein 5.9 L Albumin 2.3 L Impressions: Chest X-Ray 03/11/17 13:50 IMPRESSION: 1. Cardiomegaly without CHF. 2. Left lower lobe pneumonia. Head CT 03/11/17 13:51 IMPRESSION: MILD CHRONIC CHANGES OF ATROPHY AND MICROVASCULAR ISCHEMIA. NO ACUTE PROCESS. 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
[2017-03-14] MEDS ORDERED: MORPHINE SULFATE 10 MG/ML INJ INJ PRN (08:36)
--- NOTE | 2017-03-14 09:29 | PDOC DISCHARGE SUMMARY ---
General - Admit/Disc Date/PCP Admission Date/Primary Care Provider: 03/11/17 16:32 JESSEE LEAHY Discharge Date: 03/14/17 - Discharge Diagnosis (1) LLL pneumonia Is this a current diagnosis for this admission?: Yes (2) Sepsis Is this a current diagnosis for this admission?: Yes (3) Metabolic alkalosis Is this a current diagnosis for this admission?: Yes (4) Acute kidney injury Is this a current diagnosis for this admission?: Yes (5) Anemia Is this a current diagnosis for this admission?: Yes (6) Diabetes mellitus Is this a current diagnosis for this admission?: Yes (7) Hypertension Is this a current diagnosis for this admission?: Yes (8) Intractable vomiting with nausea Is this a current diagnosis for this admission?: Yes (9) Gastric cancer Is this a current diagnosis for this admission?: Yes (10) Congestive heart failure Is this a current diagnosis for this admission?: Yes (11) BPH (benign prostatic hyperplasia) Is this a current diagnosis for this admission?: Yes (12) Sleep apnea, obstructive Is this a current diagnosis for this admission?: Yes (13) Reflux esophagitis Is this a current diagnosis for this admission?: Yes (14) Gout Is this a current diagnosis for this admission?: Yes (15) Vitamin D deficiency Is this a current diagnosis for this admission?: Yes (16) Osteoarthritis Is this a current diagnosis for this admission?: Yes (17) DVT prophylaxis Is this a current diagnosis for this admission?: Yes (18) Gastric outlet obstruction Is this a current diagnosis for this admission?: Yes - Additional Information Resuscitation Status: Full Code Discharge Activity: Activity As Tolerated Home Medications: Fentanyl [Duragesic 25 mcg/hr Transdermal Patch] 1 patch TD Q3D 03/11/17 Metoclopramide HCl [Reglan] 5 mg PO Q6 03/11/17 Ondansetron [Zofran Odt 4 mg Tablet] 4 mg PO Q4HP PRN 03/11/17 Oxycodone HCl [Oxy-Ir 5 mg Tablet] 5 mg PO Q4 03/11/17 Oxycodone HCl/Acetaminophen [Percocet 5-325 mg Tablet] 1 tab PO BID 03/11/17 Promethazine HCl [Phenergan 25 mg Supp.rect] 25 mg OR Q4HP PRN 03/11/17 History of Present Illness History of Present Illness: JASMIN ELLSWORTH is a 76 year old male with h xof DM2/HTN/Hyperlipidemia/CHF- diastolic dysfunction/CKD stage 3/DELVIS on CPAP/GERD/BPH/Constipation/Gout/ Vitamin D/Obesity who was recently diagnosed with stage 4 gastric cancer s.p Gastric and J- tubes/Pleurx, who was recently discharged from [facility] where the blocked J-tube was declogged. He was put on hospice, but was discontinued for possible chemotherapy on 03/12/2017, but patient started having confusion and change in mental status to day and he was brought to ER and was found to have left lower lobe pneumonia, worsening metabolic alkalosis and anemia . He will be admitted to [facility] for mgt. Hospital Course Hospital Course: 76 year old am who was admitted for pneumonia.He also has gastric outlet obstruction and intractable vomiting secondary to stage 4 gastric cancer. He was treated with IV Rocephin and Azithromycin in addition to Levaquin that was given at ER.He also developed hypokalemia which was corrected.His J-tube clogged and was declogged with soda. I had a lengthy discussion with patient's daughter about his care and prognosis.The oncologist,Dr Deras had series of meetings with patient and his 2 daughters about his plan of care.It was decided that he should be made DNR/DNI and discharged home with hospice. He will be [facility] home today [facility]. Physical Exam Vital Signs: Temp Pulse Resp BP Pulse Ox 97.4 F 83 20 114/48 L 96 03/14/17 07:51 03/14/17 07:51 03/14/17 07:51 03/14/17 07:51 03/14/17 07:51 Intake & Output 03/13/17 03/14/17 03/15/17 06:59 06:59 06:59 Intake Total 4531 3780 Output Total 715 1810 Balance 3816 1970 Weight 83.7 kg General appearance: PRESENT: no acute distress, cooperative, morbidly obese, well-nourished Head exam: PRESENT: atraumatic, normocephalic Eye exam: PRESENT: EOMI, PERRLA Mouth exam: PRESENT: neck supple, tongue midline Respiratory exam: PRESENT: decreased breath sounds, symmetrical Cardiovascular exam: PRESENT: +S1, +S2 Pulses: PRESENT: +2 pedal pulses bilateral GI/Abdominal exam: PRESENT: ascites, distended Rectal exam: PRESENT: deferred Neurological exam: PRESENT: alert, oriented to person, oriented to place Psychiatric exam: PRESENT: depressed Results Laboratory Results: 03/14/17 04:22 03/14/17 04:22 03/14/17 03/14/17 04:22 04:22 WBC 9.2 RBC 2.97 L Hgb 9.0 L Hct 27.1 L MCV 91 MCH 30.3 MCHC 33.2 RDW 17.1 H Plt Count 193 Seg Neutrophils % 70.6 Lymphocytes % 16.3 Monocytes % 10.7 Eosinophils % 1.8 Basophils % 0.6 Absolute Neutrophils 6.5 Absolute Lymphocytes 1.5 Absolute Monocytes 1.0 Absolute Eosinophils 0.2 Absolute Basophils 0.1 Sodium 143.8 Potassium 4.3 Chloride 92 L Carbon Dioxide 46 H* Anion Gap 6 BUN 37 H Creatinine 1.48 H Est GFR ( Amer) 56 L Est GFR (Non-Af Amer) 46 L Glucose 198 H Calcium 7.7 L Total Bilirubin 0.6 AST 46 ALT 32 Alkaline Phosphatase 316 H Total Protein 5.9 L Albumin 2.3 L Impressions: Chest X-Ray 03/11/17 13:50 IMPRESSION: 1. Cardiomegaly without CHF. 2. Left lower lobe pneumonia. Head CT 03/11/17 13:51 IMPRESSION: MILD CHRONIC CHANGES OF ATROPHY AND MICROVASCULAR ISCHEMIA. NO ACUTE PROCESS.
[2017-03-14] MEDS: ALLOPURINOL 100 MG TABLET GT SCH (10:58)
[2017-03-14] MEDS: LOSARTAN POTASSIUM 25 MG TABLET GT SCH (10:58)
[2017-03-14] MEDS: CARVEDILOL 12.5 MG TABLET GT SCH (10:59)
[2017-03-14] MEDS: HYDRALAZINE HCL 50 MG TABLET GT SCH (10:59)
[2017-03-14] MEDS: PANTOPRAZOLE SODIUM 40 MG VIAL IV SCH (10:59)
[2017-03-14] MEDS: DOXAZOSIN MESYLATE 4 MG TABLET GT SCH (10:59)
[2017-03-14] MEDS: ENOXAPARIN SODIUM INJ 30 MG/0.3 ML DISP.SYRIN SUBCUT SCH (11:00)
[2017-03-14 11:45] VITALS: BP 100/34
== END 2017-03-14 13:44 | disposition hospice, home (50) | DRG 871 ==
LOC: ER 13:26 → UNDOADMIN 16:30 → EH 16:30 → 3W 18:55
PROVIDERS: ADMIT Internal Medicine; ATTEND Internal Medicine
PROC: 5A09357 Assistance with Respiratory Ventilation, Less than 24 Consecutive Hours, Continuous Positive Airway Pressure (ICD-10-PCS; principal; 2017-03-11)
PROC: 30233N1 Transfusion of Nonautologous Red Blood Cells into Peripheral Vein, Percutaneous Approach (ICD-10-PCS; 2017-03-12)
DX: A41.9 Sepsis, unspecified organism (principal); J18.1 Lobar pneumonia, unspecified organism; I13.0 Hypertensive heart and chronic kidney disease with heart failure and stage 1 through stage 4 chronic kidney disease, or unspecified chronic kidney disease; I50.32 Chronic diastolic (congestive) heart failure; E87.3 Alkalosis; N17.9 Acute kidney failure, unspecified; C16.3 Malignant neoplasm of pyloric antrum; K31.1 Adult hypertrophic pyloric stenosis; K94.19 Other complications of enterostomy; E11.22 Type 2 diabetes mellitus with diabetic chronic kidney disease; N18.3 Chronic kidney disease, stage 3 (moderate); D64.9 Anemia, unspecified; R11.2 Nausea with vomiting, unspecified; G89.3 Neoplasm related pain (acute) (chronic); N40.0 Benign prostatic hyperplasia without lower urinary tract symptoms; E78.5 Hyperlipidemia, unspecified; G47.33 Obstructive sleep apnea (adult) (pediatric); K21.0 Gastro-esophageal reflux disease with esophagitis; M10.9 Gout, unspecified; E55.9 Vitamin D deficiency, unspecified; M19.90 Unspecified osteoarthritis, unspecified site; Z79.899 Other long term (current) drug therapy; E87.6 Hypokalemia; Z66 Do not resuscitate; Z91.013 Allergy to seafood; E66.9 Obesity, unspecified; Z68.30 Body mass index [BMI] 30.0-30.9, adult
CPT/HCPCS: 36415; 36430; 70450; 71010; 80053; 81001; 82140; 82803; 82962; 83605; 85025; 85610; 86850; 86900; 86901; 86920; 87040; 87086; 93005; 93010; 94660; 96365; 96375; 99285; J0456; J0696; J1650; J1815; J1940; J1956; J2060; J2270; J3480; J3490; J7030; J7060; P9016; S0119; S0164